=== PATIENT | male | born 1950 | race Caucasian/White ===

== ENCOUNTER 2024-02-21 16:00 | Emergency (ER) | payer MEDICARE, MEDICAID, SELFPAY ==
[2024-02-21 16:02] VITALS: BP 197/85; PULSE 62; RESP 18; TEMP 36; O2SAT 99; BMI 24.3
--- NOTE | 2024-02-21 19:13 | ED.RN ---
called for pt at 1730 and at 191 with no answer.
== END 2024-02-21 17:30 | disposition left against medical advice (07) ==
LOC: ED 19:18
DX: Z53.21 Procedure and treatment not carried out due to patient leaving prior to being seen by health care provider (principal)

== ENCOUNTER 2024-03-14 03:18 | Emergency (ER) | payer MEDICARE, MEDICAID, SELFPAY ==
[2024-03-14 03:22] VITALS: BP 164/101; PULSE 122; RESP 17; TEMP 37.3; O2SAT 98; BMI 25.3
[2024-03-14 03:23] VITALS: BP 164/101; PULSE 122; RESP 17; TEMP 37.3; O2SAT 98
--- NOTE | 2024-03-14 03:37 | RAD_ITS ---
INDICATION: back pain FEVER, BODY ACHES, BACK PAIN EXAMINATION/TECHNIQUE: X-RAY - XR Spine Lumbar 2 or 3 Views COMPARISON: No relevant prior comparison study available FINDINGS: The vertebral bodies are normal in height. No definite fracture demonstrated. No subluxation. Mild curvature convex right. Mild disc space narrowing and osteophytes most pronounced at L4-5 and L5-S1. No paravertebral soft tissue mass identified. RAD/Lumbar Spine 2 or 3 Views IMPRESSION: No evidence of fracture or subluxation. Mild degenerative changes. If there is concern for inflammatory process, MRI may be helpful to evaluate for discitis osteomyelitis. Electronically Signed: Leatha Aguero MD at 5:25 EDT ,
--- NOTE | 2024-03-14 03:37 | RAD_ITS ---
INDICATION: fever EXAMINATION/TECHNIQUE: X-RAY - XR Chest 2 Views COMPARISON: No relevant prior comparison study available FINDINGS: LINES/DEVICES: None. LUNGS: No consolidation. No pneumothorax. MEDIASTINUM: Aorta is tortuous and atherosclerotic. CARDIAC SILHOUETTE: Not enlarged. BONES AND SOFT TISSUES: No acute abnormalities. RAD/Chest PA and Lateral IMPRESSION: No evidence of active intrathoracic disease. Electronically Signed: Leatha Aguero MD at 5:22 EDT ,
--- OUTSIDE RECORDS SUMMARY | 2024-03-14 03:52 | XMS RPT_ITS | CCD ---
Author Organization [facility] Care Team Providers Care Mat Repairer Name Role Phone Fani Saunders L Unavailable Unavailable Unavailable Unavailable SMOOTH EASON Unavailable Unavailable CHRISSIE YU Unavailable Unavailable TRINIDADIANSMOOTH Unavailable Unavailable SAUNDERS, FANI L Unavailable Unavailable SMOOTH EASON Unavailable Unavailable KYLE GOMEZ Unavailable Unavailable TRINIDADIANSMOOTH Unavailable Unavailable SAUNDERS, FANI L Unavailable Unavailable Saunders, Fani L Unavailable Unavailable Primary Care Provider Unavailabl e Saunders, Fani L Primary Care Provider [phone] Saunders, Fani L Primary Care Provider [phone] Saunders, Fani Mari Primary Care Provider Saunders Fani FARNSWORTH Primary Care Provider [phone] SMOOTH EASON Attending Unavailable SAUNDERS, FANI L Primary Care Unavailable SMOOTH EASON Attending Unavailable SMOOTH EASON Referring Unavailable SAUNDERS, FANI L Primary Care Unavailable TRINIDADIANSMOOTH Attending Unavailable SAUNDERS, FANI L Primary Care Unavailable TRINIDADIANSMOOTH Attending Unavailable SMOOTH EASON Referring Unavailable SAUNDERS, FANI L Primary Care Unavailable TRINIDADIANSMOOTH Attending Unavailable SAUNDERS, FANI L Primary Care Unavailable TRINIDADIANSMOOTH Attending Unavailable SMOOTH EASON Referring Unavailable SAUNDERS, FANI L Primary Care Unavailable SRINIVAS HACKETT Attending Unavailable SAUNDERS, FANI L Primary Care Unavailable ROXANNSRINIVAS VARGHESE Attending Unavailable SRINIVAS HACKETT Referring Unavailable SAUNDERS, FANI L Primary Care Unavailable TRINIDADIANSMOOTH Attending Unavailable SAUNDERS, FANI L Primary Care Unavailable TRINIDADIANSMOOTH GREEN Attending Unavailable SAUNDERS, FANI L Primary Care Unavailable SRINIVAS HACKETT Attending Unavailable SAUNDERS, FANI L Primary Care Unavailable SMOOTH EASON Attending Unavailable SAUNDERS, FANI L Primary Care Unavailable Saunders FREIGHT CLERK, Fani L Primary Care Provider Anai ROMERO, Laboure Primary Care Provider Anai ROMERO, Laboure Primary Care Provider Anai ROMERO, Laboure Primary Care Provider OKOROAFOR, LABOURE Referring Unavailable MONK IIIMissy Attending Unavailable OKOROAFOR, LABOURE Primary Care Unavailable OKOROAFOR, LABOURE Referring Unavailable OKOROAFOR, LABOURE Primary Care Unavailable MONK IIIMissy Attending Unavailable OKOROAFOR, LABOURE Referring Unavailable OKOROAFOR, LABOURE Primary Care Unavailable MONK IIIMissy Attending Unavailable OKOROAFOR, LABOURE Referring Unavailable MONK IIIMissy Attending Unavailable OKOROAFOR, LABOURE Primary Care Unavailable MONK IIIMissy Attending Unavailable OKOROAFOR, LABOURE Primary Care Unavailable MONK IIIMissy Referring Unavailable MONK IIIMissy Referring Unavailable MONK IIIMissy Attending Unavailable OKOROAFOR, LABOURE Primary Care Unavailable DRE VILLALOBOS JR. Attending Unavailabl PHIL Farnsworth Referring Unavailabl e OKOROAFOR, LABOURE Primary Care Unavailable OKOROAFOR, LABOURE Primary Care Unavailable OKOROAFOR, LABOURE Referring Unavailable MONK IIIMissy Attending Unavailable OKOROAFOR, LABOURE Primary Care Unavailable SELF, SELF Referring Unavailable MONK IIIMissy Attending Unavailable OKOROAFOR, LABOURE Primary Care Unavailable OKOROAFOR, LABOURE Referring Unavailable MONK IIIMissy Attending Unavailable KAREN PEÑALOZA Attending Unavaila ble FANI SAUNDERS Primary Care Unavailable KYLE RAMESH Attending Unavailabl e SAUNDERS, FANI L Primary Care Unavailable Allergies Allergy Classification Reported Allergen(s) Allergy Type Date of Onset Reaction(s) Facility Sulfamethoxazole / Trimethoprim (4 sources) Sulfamethoxazole / Trimethoprim; Translations: [SULFAMETHOXAZOLE-T RIMETHOPRIM] Drug Allergy 08-09-19 15 Anxiety [facility] (20 sources) sulfamethoxazole / trimethoprim; Translations: [SULFAMETHOXAZOLE-T RIMETHOPRIM] Propensity to adverse reactions to drug 08-09-19 15 Anxiety, Myalgia [facility] Work Phone: Medications Current Medications Medication Drug Class(es) Dates Sig (Normalized) Sig (Original) acetaminophen 325 mg / HYDROcodone bitartrate 5 mg oral tablet (20 sources) Opioid Agonist Start: 05-21-2020 take 1 tablet by mouth every six hours as needed for pain HYDROcodone-acetam inophen (NORCO) 5-325 mg per tablet Indications: Hemorrhoids, unspecified hemorrhoid type Take 1 (one) tablet by mouth every 6 (six) hours as needed for pain . 15 tablet 0 05/21/2020 Active Start: 03-18-2020 End: 03-21-2020 take 1 tablet by mouth every four hours as needed for pain, then take 3 tablets by mouth as needed for pain HYDROcodone-acetaminophen (NORCO) 5-325 mg per tablet Indications: Closed fracture of lateral portion of right tibial plateau, initial encounter Take 1 (one) tablet by mouth every 4 (four) hours as needed for pain 3 . 18 tablet 0 03/18/2020 03/21/2020 Active Start: 03-03-2020 End: 03-04-2020 HYDROcodone-acetaminophen (N ORCO) 5-325 mg per tablet 1 tablet Start: 12-02-2016 End: 05-21-2020 take 1 tablet by mouth every eight hours as needed HYDROcodone-acetaminophen (NORCO) 5-325 mg per tablet Take 1 (one) tablet by mouth every 8 (eight) hours as needed for pain. 50 tablet 0 01/13/2017 Active acetaminophen 325 mg / oxyCODONE hydrochloride 5 mg oral tablet (1 source) Opioid Agonist Start: 03-04-2020 End: 03-14-2020 take 2 tablets by mouth every six hours as needed for pain oxyCODONE-acetaminophen (PERCOCET) 5-325 mg per tablet Indications: Closed fracture of right tibial plateau, initial encounter Take 2 (two) tablets by mouth every 6 (six) hours as needed for pain Do not drive with medication. . 20 tablet 0 03/04/2020 03/14/2020 Active bismuth subsalicylate 17.5 mg/ml oral suspension (11 sources) Bismuth take 30 mL by mouth every six hours as needed bismuth subsalicylate 262 MG/15ML Suspension Take 30 mL by mouth every 6 hours as needed. Active calcium carbonate / ergocalciferol (20 sources) Provitamin D2 Compound take 1 tablet by mouth twice daily calcium carbonate-vitamin D2 500 mg(1,250mg) -200 unit tablet Take 1 tablet by mouth 2 (two) times a day. 0 Active take 1 tablet by mouth twice krysten ly calcium carbonate-vitamin D2 500 mg(1,250mg) -200 unit tablet Take 1 tablet by mouth 2 (two) times a day. Active take 1 tablet by mouth twice krysten ly calcium carbonate-vitamin D2 500 mg(1,250mg) -200 unit tablet Take 1 tablet by mouth 2 (two) times a day. Active cyclobenzaprine hydrochloride 10 mg oral tablet (11 sources) Muscle Relaxant Start: 03-22-2022 End: 03-22-2022 take 1 tablet by mouth three times daily as needed for muscle spasms cyclobenzaprine 10 MG tablet Indications: Acute bilateral low back pain with left-sided sciatica , Mid back pain Take 1 tablet by mouth 3 times daily as needed for Muscle spasms. 30 tablet 03/22/2022 Active docusate sodium 50 mg / sennosides, [facility] 8.6 mg oral tablet (2 sources) Start: 05-21-2020 End: 06-20-2020 take 1 tablet by mouth once daily senna-docusate (SENNA-S) 8.6-50 mg Take 1 (one) tablet by mouth daily . 30 tablet 0 05/21/2020 06/20/2020 Active hydroCHLOROthiazide 12.5 mg oral capsule (20 sources) Thiazide Diuretic take 1 capsule by mouth once daily hydrochlorothiazide 12.5 MG Cap Take 1 capsule by mouth daily. Active hydrocortisone 25 mg/ml topical cream (2 sources) Corticosteroid Start: 05-21-2020 End: 06-20-2020 hydrocortisone (ANUSOL-HC) 2.5 % rectal cream Insert into the rectum 2 (two) times a day . 28 g 0 05/21/2020 06/20/2020 Active ibuprofen 800 mg oral tablet (10 sources) Nonsteroidal Anti-inflammatory Drug Start: 03-18-2020 End: 03-18-2021 take 1 tablet by mouth every eight hours as needed for pain ibuprofen (ADVIL,MOTRIN) 800 MG tablet Indications: Closed fracture of lateral portion of right tibial plateau, initial encounter Take 1 (one) tablet (800 mg total) by mouth every 8 (eight) hours as needed for pain . 60 tablet 2 03/18/2020 03/18/2021 Active lidocaine 0.05 mg/mg topical ointment (5 sources) Antiarrhythmic, Amide Local Anesthetic Start: 07-12-2022 Lidocaine 5 % ointment Indications: Chronic bilateral low back pain without sciatica Ketamine 5%, baclofen 2%, diclofenac 3%, gabapentin 6%, lidocaine 2%, prilocaine 2% Apply 1-2gm topically to affected area three to four times a day as needed 240 g 3 07/12/2022 Active lisinopril 20 mg oral tablet (20 sources) Angiotensin Converting Enzyme Inhibitor take 2 tablets by mouth once daily lisinopril 20 MG Tab Take 2 tablets by mouth daily. Active take 5 mg by mouth once daily li sinopril (PRINIVIL,ZESTRIL) 10 MG tablet Take 5 mg by mouth daily. 0 Active Multiple Vitamin (MULTI-ALPA MIN DAILY PO) (11 sources) Multiple Vitamin (MULTI-VITAMIN DAILY PO) Active Multiple Vitamin (MULTI-VITAMIN DAILY PO) multivitamin (multivitamin) per tablet (20 sources) take 1 tablet by hero th once daily multivitamin (multivitamin) per tablet Take 1 tablet by mouth daily. 0 Active take 1 tablet by mouth once juaquin y multivitamin (multivitamin) per tablet Take 1 tablet by mouth daily. Active Multivitamin Tablet (8 sources) take 1 tablet by mouth once daily multivitamin (multivitamin) per tablet Take 1 tablet by mouth daily. Active naproxen 500 mg oral tablet (11 sources) Nonsteroidal Anti-inflammatory Drug Start: 03-22-20 End: 04-05-20 take 1 tablet by mouth twice daily at mealtime naproxen 500 MG tablet Indications: Acute bilateral low back pain with left-sided sciatica , Mid back pain Take 1 tablet by mouth 2 times daily with meals for 14 days. 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 28 tablet 03/22/2022 Active omeprazole 20 mg delayed release oral capsule (20 sources) Proton Pump Inhibitor Start: 03-22-20 End: 03-22-20 take 1 capsule by mouth once daily omeprazole [address] capsule Indications: Acute bilateral low back pain with left-sided sciatica , Mid back pain Take 1 capsule by mouth daily. 30 capsule 03/22/2022 Active Start: 03-03-2019 End: 04-02-2019 take 1 capsule by mouth once daily omeprazole (PRILOSEC) 40 MG capsule Take 1 (one) capsule (40 mg total) by mouth daily . 30 capsule 0 03/03/2019 Active penicillin v potassium 500 mg oral tablet (2 sources) Start: 09-17-2020 End: 09-24-2020 take 1 tablet by mouth four times daily penicillin v potassium (VEETID) 500 MG tablet Take 1 (one) tablet (500 mg total) by mouth 4 (four) times a day for 7 days . 28 tablet 0 09/17/2020 09/24/2020 Active Start: 09-17-2020 End: 09-17-2020 penicillin v potassium (VEET ID) tablet 500 mg Completed/Discontinued Medications Medication Drug Class(es) Dates Sig (Normalized) Sig (Original) calcium chloride 0.0014 meq/ml / potassium chloride 0.004 meq/ml / sodium chloride 0.103 meq/ml / sodium lactate 0.028 meq/ml injectable solution (1 source) Start: 04-05-2023 End: 04-06-2023 Lactated ringers IV solution simethicone undiluted 40 mg/0.6 mL irrigation 1 Application (1 source) Start: 04-05-2023 End: 04-05-2023 simethicone undiluted 40 mg/0.6 mL irrigation 1 Application zinc oxide 0.4 mg/mg paste (1 source) Start: 09-17-2020 End: 09-17-2020 zinc oxide (DESITIN MAX) 40 % paste Problems Active Problems Problem Classification Problem Date Documented Date Episodic/Chronic Cancer of prostate (20 sources) Malignant tumor of prostate; Translations: [Malignant neoplasm of prostate] Onset: 06-06-2015 Chronic Cataract (20 sources) Bilateral cataracts; Translations: [Unspecified cataract] Onset: 01-24-2016 01-24-2016 Chronic Disorders of teeth and jaw (1 source) Toothache; Translations: [Other specified disorders of teeth and supporting structures] Episodic E Codes: Fall (2 sources) Unspecified fall, initial encounter; Translations: [Unspecified fall, initial encounter] Onset: 10-05-2023 Episodic Essential hypertension (20 sources) Hypertensive disorder; Translations: [Essential (primary) hypertension] Onset: 08-08-2014 01-24-2016 Chronic External cause codes: Fall (1 source) Fall; Translations: [Fall, initial encounter] Hemorrhoids (1 source) Hemorrhoids; Translations: [Hemorrhoids, unspecified hemorrhoid type] Episodic Osteoarthritis (2 sources) Primary gonarthrosis, bilateral; 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] Chronic Other circulatory disease (3 sources) Elevated blood pressure; Translations: [Elevated blood-pressure reading, without diagnosis of hypertension] Episodic Other diseases of bladder and urethra (11 sources) Contracture of bladder neck; 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-neck obstruction] Onset: 11-24-2017 11-24-2017 Chronic Other eye disorders (16 sources) Vitreous floaters; Translations: [Other vitreous opacities, bilateral] Onset: 01-24-2016 01-24-2016 Chronic Other eye disorders (3 sources) Other vitreous opacities, bilateral; Translations: [Bilateral vitreous floaters] Onset: 01-24-2016 01-24-2016 Chronic Other eye disorders (12 sources) Bilateral vitreous floaters; Translations: [Vitreous floaters of both eyes] Onset: 01-24-2016 01-24-2016 Other non-traumatic joint disorders (2 sources) Pain in right wrist; Translations: [Pain in right wrist] Onset: 10-05-2023 Episodic Other non-traumatic joint disorders (1 source) Pain in right knee; Translations: [Right knee pain] Residual codes; unclassified (3 sources) Patient encounter status; Translations: [Encounter for prophylactic measures, unspecified] Onset: 08-08-2014 Resolved: 08-10-2014 08-10-2014 Episodic Spondylosis; intervertebral disc disorders; other back problems (3 sources) Lumbar spondylosis; Translations: [Spondylosis without myelopathy or radiculopathy, lumbar region] Chronic Spondylosis; intervertebral disc disorders; other back problems (7 sources) Acute back pain with sciatica; Translations: [Lumbago with sciatica, left side] Episodic Unclassified (13 sources) Shoulder stiffness, left; Translations: [Shoulder stiffness, left] Onset: 03-28-2017 03-28-2017 Unclassified (17 sources) Decreased range of motion of left shoulder; Translations: [Decreased range of motion of left shoulder] Onset: 12-10-2016 12-10-2016 Unclassified (1 source) Closed fracture of right tibial plateau; Translations: [Closed fracture of right tibial plateau, initial encounter] Unclassified (1 source) Cough, unspecified; Translations: [Cough, unspecified] Onset: 05-11-2023 Past or Other Problems Problem Classification Problem Date Documented Date Episodic/Chronic Blindness and vision defects (20 sources) Disorder of refraction; Translations: [Unspecified disorder of refraction] Onset: 01-24-2016 01-24-2016 Episodic Fluid and electrolyte disorders (20 sources) Lactic acidosis; Translations: [Acidosis] Onset: 08-08-2014 08-08-2014 Episodic Fracture of lower limb (16 sources) Closed fracture proximal tibia, lateral condyle (plateau) ; Translations: [Fracture of tibial plateau] Onset: 03-18-2020 03-18-2020 Episodic Fracture of upper limb (20 sources) Closed fracture of acromial end of clavicle; Translations: [Displaced fracture of lateral end of left clavicle, initial encounter for closed fracture] Onset: 10-21-2016 10-21-2016 Episodic Gastritis and duodenitis (12 sources) Gastritis; Translations: [Gastritis, unspecified, without bleeding] Onset: 03-15-2019 03-15-2019 Episodic Genitourinary symptoms and ill-defined conditions (20 sources) Retention of urine; Translations: [Retention of urine, unspecified] Onset: 08-08-2014 08-10-2014 Episodic Influenza (2 sources) Influenza due to other identified influenza virus with other respiratory manifestations; Translations: [Influenza due to other identified influenza virus with other respiratory manifestations] Onset: 05-11-2023 Episodic Mood disorders (5 sources) Mood disorders Onset: 09-27-2022 Resolved: 08-16-2023 09-27-2022 Other and unspecified benign neoplasm (11 sources) Lipoma (clinical); Translations: [Benign lipomatous neoplasm, unspecified] Onset: 09-08-2015 09-08-2015 Episodic Other fractures (2 sources) Nondisplaced fracture of lateral end of left clavicle, subsequent encounter for fracture with routine healing; Translations: [Nondisplaced fracture of lateral end of left clavicle, subsequent encounter for fracture with routine healing] Onset: 12-10-2016 Episodic Other injuries and conditions due to external causes (1 source) Fracture of bone Episodic Other non-traumatic joint disorders (20 sources) Shoulder stiff; Translations: [Stiffness of left shoulder, not elsewhere classified] Onset: 12-02-2016 12-02-2016 Episodic Other non-traumatic joint disorders (15 sources) Hip pain; Translations: [Pain in left hip] Onset: 04-17-2018 04-17-2018 Episodic Other non-traumatic joint disorders (9 sources) Stiffness of left shoulder, not elsewhere classified; Translations: [Stiffness of left shoulder] Onset: 12-10-2016 03-28-2017 Episodic Other non-traumatic joint disorders (1 source) Knee pain; Translations: [Acute pain of right knee] Episodic Other non-traumatic joint disorders (2 sources) Shoulder joint - range of movement - finding; Translations: [Stiffness of left shoulder, not elsewhere classified] Onset: 12-10-2016 12-10-2016 Episodic Other screening for suspected conditions (not mental disorders or infectious disease) (2 sources) Encounter for screening for malignant neoplasm of colon; Translations: [Encounter for screening for malignant neoplasm of colon] Onset: 04-05-2023 Episodic Other skin disorders (11 sources) Sebaceous cyst of skin; Translations: [Sebaceous cyst] Onset: 09-08-2015 09-08-2015 Episodic Other upper respiratory infections (2 sources) Acute pharyngitis, unspecified; Translations: [Acute pharyngitis, unspecified] Onset: 05-11-2023 Episodic Septicemia (20 sources) Sepsis; Translations: [Sepsis, unspecified organism] Onset: 08-08-2014 08-10-2014 Episodic Unclassified (16 sources) H/O: anticoagulant therapy; Translations: [DVT prophylaxis] Onset: 08-08-2014 Resolved: 08-10-2014 08-10-2014 Episodic Unclassified (13 sources) Patient encounter status; Translations: [DVT prophylaxis] Onset: 08-08-2014 Resolved: 08-10-2014 08-10-2014 Unclassified (1 source) Cough, unspecified; Translations: [Cough, unspecified] Onset: 05-11-2023 Urinary tract infections (11 sources) Irradiation cystitis; 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 [id number] male who presents to the emergency department with complaints of right wrist pain for 2 weeks. Patient fell backwards on his right wrist about 2 weeks ago. He was not evaluated at that time. He is not wearing a wrist splint and taking naproxen and aspirin intermittently for pain. His pain is not worse however it is still present. It is worse with certain movements. When he fell he did not hit his head or lose consciousness. He is not anticoagulated. No numbness, tingling, or weakness to the extremity. Medical Decision Making I saw and evaluated the patient. I have reviewed the chief complaint, triage note, past medical/surgical, family, and social history. 72-year-old male presents as above. Vital signs are unremarkable. On exam he is nontoxic and resting comfortably. 2+ bilateral radial pulses. Good capillary refill to all digits of the right hand. Awake, alert and oriented. Intact sensation to light touch of the bilateral upper extremities. Equal and symmetric handgrip. No pain with wrist flexion or extension. No pain with elbow flexion or extension. GCS 15. No significant tenderness to palpation to the right upper extremity and right wrist. No palpable deformity, swelling, erythema, or crepitus to the right upper extremity. Patient given oral ibuprofen in the ED. X-ray of the right wrist was unremarkable. Patient reassured. He already has a wrist splint. He will follow-up with his primary care doctor and continue RICE therapy and Tylenol or ibuprofen as needed at home. Strict return precautions were discussed and all questions were answered. Discharged in stable condition. Imaging studies interpreted by radiologist and reviewed by myself. Differential diagnosis includes but not limited to: Fracture, sprain 1. Acute pain of right wrist 2. Fall, initial encounter MDM Data MDM Data: X-ray interpretation reviewed and Shared decision making utilized Physical Exam Vital signs reviewed. CONSTITUTIONAL: Overall non toxic and resting comfortably EYES: No conjunctival injection. No icterus. HENT: External ears normal, external nose normal. MMM. NECK: Trachea midline RESPIRATORY: Easy non labored respirations, no respiratory distress CHEST: Equal chest expansion CARDIOVASCULAR: Warm and well-perfused. 2+ bilateral radial pulses. Good capillary refill to all digits of the right hand. NEUROLOGICAL: Awake, alert and oriented. Intact sensation to light touch of the bilateral upper extremities. Equal and symmetric handgrip. No pain with wrist flexion or extension. No pain with elbow flexion or extension. GCS 15. PSYCHOLOGICAL: The patient's mood and manner are appropriate. Grooming and personal hygiene are appropriate. INTEGUMENTARY: Warm and dry. No rash noted. MUSCULOSKELETAL: No significant tenderness to palpation to the right upper extremity and right wrist. No palpable deformity, swelling, erythema, or crepitus to the right upper extremity. Radiographic Imaging (if any) During ED Visit XR Wrist Right 3+ Views (Standard) Final Result Normal wrist radiographs Workstation ID: [id number] SOCIAL: Social History Tobacco Use Smoking status: Never Smokeless tobacco: Never Vaping Use Vaping Use: Never used Substance Use Topics Alcohol use: No Drug use: No Past Medical History Nursing triage notes/past medical, social, and family hx reviewed by me and I agree except where documented above. Past Medical History: Diagnosis Date Hypertension Prostate cancer (HCC) Labs Reviewed - No data to display Laboratory results have been reviewed by me. Procedures . Allergies Allergies Allergen Reactions Bactrim [Sulfamethoxazole-Tri methoprim] Anxiety Medications Previous Medications Medication Sig calcium carbonate-vitamin D2 500 mg(1,250mg) -200 unit tablet Take 1 tablet by mouth 2 (two) times a day. hydrochlorothiazide (MICROZIDE) 12.5 mg capsule Take 12.5 mg by mouth. HYDROcodone-acetamino phen (NORCO) 5-325 mg per tablet Take 1 (one) tablet by mouth every 6 (six) hours as needed for pain . (Patient not taking: Reported on 11/14/2020 .) HYDROcodone-acetamino phen (NORCO) 5-325 mg per tablet Take 1 (one) tablet by mouth every 6 (six) hours as needed . lisinopril (PRINIVIL,ZESTRIL) 10 MG tablet Take 5 mg by mouth daily. multivitamin (multivitamin) per tablet Take 1 tablet by mouth daily. omeprazole (PRILOSEC) 40 MG capsule Take 1 (one) capsule (40 mg total) by mouth daily . ondansetron (ZOFRAN) 4 MG tablet Take 1 (one) tablet (4 mg total) by mouth every 8 (eight) hours as needed . (Computer voice recognition was used in this documentation, there is a possibility of [id number] errors inherent to this technology that may be missed during proofreading.) Jones Ortiz PA-C 10/06/23 1115 AUTHENTICATED BY JONES ORTIZ, (more content not included)... [facility] XR WRIST RIGHT 3+ VIEWS (STA NDARD)on 10-05-2023 XR WRIST RIGHT 3+ VIEWS (STANDARD) EXAMINATION: THREE XRAY VIEWS OF THE RIGHT WRIST 10/05/2023 2:35 pm COMPARISON: None. HISTORY: ORDERING SYSTEM PROVIDED HISTORY: right wrist pain; TECHNOLOGIST PROVIDED HISTORY: Injury/Trauma Acuity: Acute Reason for Exam: Right medial posterior wrist pain x 2 weeks Type of Encounter: Initial Mechanism of Injury: fall FINDINGS: Carpal bones and alignment are maintained. Distal radius and ulna are intact. No acute fracture or dislocation. IMPRESSION: Normal wrist radiographs Workstation ID: [id number] Dictated by: MAIRA PATTERSON on TueOctober 05, 2023 2:48:06 PM EDT Transcribed by: MAIRA PATTERSON on TueOctober 05, 2023 2:48:06 PM EDT Finalized by: MAIRA PATTERSON on TueOctober 05, 2023 2:48:06 PM EDT [facility] Comment on above: Order Comment: Injur y/Trauma or Illness?:Injury/Trauma How long have you had these symptoms (acute/chronic)?:Acute Reason for exam?:Right medial posterior wrist pain x 2 weeks History of cancer?:unknown Surgeries, chemotherapy, or radiation?:unknown Type of Exam?:Initial Mechanism of injury?:fall CBC AND ELECTRONIC DIFFon Abs Baso Auto < Normal 0.00-0.09 [facility] Comment on above: Performed By: #### P SATM #### [facility] (DEFAULT) [address] [address] Basophils/100 WBC (Bld) 0.6 % Normal [facility] Comment on above: Performed By: #### P SATM #### [facility] (DEFAULT) [address] [address] DIFF STATUS Electronic Differential Normal [facility] Comment on above: Performed By: #### P SATM #### [facility] (DEFAULT) [address] [address] Eosinophils (Bld) [#/Vol] 0.06 10*3/uL Normal 0.00-0.48 [facility] Comment on above: Performed By: #### P SATM #### [facility] (DEFAULT) [address] [address] Eosinophils/100 WBC (Bld) 1.3 % Normal [facility] Comment on above: Performed By: #### P SATM #### [facility] (DEFAULT) [address] [address] Hematocrit (Bld) [Volume fraction] 41.7 % Normal 39.6-48.8 [facility] Comment on above: Performed By: #### P SATM #### [facility] (DEFAULT) [address] [address] Hemoglobin (Bld) [Mass/Vol] 14.1 g/dL Normal 13.4-16.8 [facility] Comment on above: Performed By: #### P SATM #### [facility] (DEFAULT) [address] [address] Immature Grans % 0.2 % Normal [facility] Comment on above: Performed By: #### P SATM #### [facility] (DEFAULT) [address] [address] Immature Grans Absolute < Normal <=0.07 [facility] Comment on above: Performed By: #### P SATM #### [facility] (DEFAULT) [address] [address] Lymphocytes (Bld) [#/Vol] 1.44 10*3/uL Normal 0.83-3.57 [facility] Comment on above: Performed By: #### P SATM #### [facility] (DEFAULT) [address] [address] Lymphocytes/100 WBC (Bld) 30.7 % Normal [facility] Comment on above: Performed By: #### P SATM #### [facility] (DEFAULT) [address] [place] [address] MCV (RBC) [Entitic vol] 92.1 fL Normal 79.0-94.5 [facility] Comment on above: Performed By: #### P SATM #### [facility] (DEFAULT) [address] [place] [address] Mean Cell Hgb 31.1 pg Normal 26.1-33.3 [facility] Comment on above: Performed By: #### P SATM #### [facility] (DEFAULT) [address] [place] [address] Mean Cell Hgb Conc 33.8 g/dL Normal 31.9-36.5 [facility] Comment on above: Performed By: #### P SATM #### [facility] (DEFAULT) [address] [place] [address] Monocytes (Bld) [#/Vol] 0.67 10*3/uL Normal 0.24-0.93 [facility] Comment on above: Performed By: #### P SATM #### [facility] (DEFAULT) [address] [place] [address] Monocytes/100 WBC (Bld) 14.3 % Normal [facility] Comment on above: Performed By: #### P SATM #### [facility] (DEFAULT) [address] [place] [address] Nucleated RBC 0.0 /100 WBC Normal <=0.2 [facility] Comment on above: Performed By: #### P SATM #### [facility] (DEFAULT) [address] [place] [address] Platelet mean volume (Bld) [Entitic vol] 9.5 fL Normal 8.7-12.3 [facility] Comment on above: Performed By: #### P SATM #### [facility] (DEFAULT) [address] [place] [address] Platelets (Bld) [#/Vol] 262 10*3/uL Normal 146-337 [facility] Comment on above: Performed By: #### P SATM #### [facility] (DEFAULT) [address] [address] RBC (Bld) [#/Vol] 4.53 10*6/uL Normal 4.38-5.83 [facility] Comment on above: Performed By: #### P SATM #### [facility] (DEFAULT) [address] [address] RBC Distribution 11.7 % Normal 10.9-14.3 [facility] Comment on above: Performed By: #### P SATM #### [facility] (DEFAULT) [address] [address] Segs + Bands Auto 52.9 % Normal [facility] Comment on above: Performed By: #### P SATM #### [facility] (DEFAULT) [address] [address] Segs + Bands,Absolute Auto 2.48 K/uL Normal 1.57-6.19 [facility] Comment on above: Performed By: #### P SATM #### [facility] (DEFAULT) [address] [address] WBC (Bld) [#/Vol] 4.69 10*3/uL Normal 3.73-10.10 [facility] Comment on above: Performed By: #### P SATM #### [facility] (DEFAULT) [address] [address] CMPN WITHOUT GLUCOSEon 08-15 Albumin [Mass/Vol] 4.5 g/dL Normal 3.5-5.0 [facility] Comment on above: Performed By: #### P SATM #### [facility] (DEFAULT) [address] [place] [address] ALP [Catalytic activity/Vol] 84 U/L Normal 32-126 [facility] Comment on above: Performed By: #### P SATM #### [facility] (DEFAULT) [address] [place] [address] ALT [Catalytic activity/Vol] 13 U/L Normal 10-52 [facility] Comment on above: Performed By: #### P SATM #### [facility] (DEFAULT) [address] [place] [address] Anion gap [Moles/Vol] 11 mmol/L Normal 7-17 [facility] Comment on above: Performed By: #### P SATM #### [facility] (DEFAULT) [address] [place] [address] AST [Catalytic activity/Vol] 15 U/L Normal 10-39 [facility] Comment on above: Performed By: #### P SATM #### [facility] (DEFAULT) [address] [address] Bilirubin [Mass/Vol] 0.3 mg/dL Normal <1.5 [facility] Comment on above: Performed By: #### P SATM #### [facility] (DEFAULT) [address] [place] [address] Calcium [Mass/Vol] 9.6 mg/dL Normal 8.6-10.5 [facility] Comment on above: Performed By: #### P SATM #### [facility] (DEFAULT) [address] [place] [address] Chloride [Moles/Vol] 100 mmol/L Normal 98-108 [facility] Comment on above: Performed By: #### P SATM #### [facility] (DEFAULT) [address] [place] [address] CO2 [Moles/Vol] 31 mmol/L Normal 21-31 [facility] Comment on above: Performed By: #### P SATM #### [facility] (DEFAULT) [address] [place] [address] Creatinine [Mass/Vol] 0.77 mg/dL Normal 0.70-1.30 [facility] Comment on above: Performed By: #### P SATM #### [facility] (DEFAULT) [address] [place] [address]51 eGFR, CKD-EPI, Male > Normal >=60 [facility] Comment on above: Result Comment: Repo rted eGFR is based on the CKD-EPI 2020 equation using creatinine, age, and sex. Performed By: #### P SATM #### [facility] (DEFAULT) [address] [place] [address] Potassium [Moles/Vol] 3.6 mmol/L Normal 3.5-5.0 [facility] Comment on above: Performed By: #### P SATM #### [facility] (DEFAULT) [address] [place] [address] Protein [Mass/Vol] 7.9 g/dL Normal 6.4-8.3 [facility] Comment on above: Performed By: #### P SATM #### [facility] (DEFAULT) [address] [place] [address] Sodium [Moles/Vol] 138 mmol/L Normal 135-145 [facility] Comment on above: Performed By: #### P SATM #### [facility] (DEFAULT) [address] [place] [address] Urea nitrogen [Mass/Vol] 29 mg/dL High 7-25 [facility] Comment on above: Performed By: #### P SATM #### [facility] (DEFAULT) [address] [address] Urea nitrogen/Creatinine [Mass ratio] 38 mg/mg Normal [facility] Comment on above: Performed By: #### P SATM #### [facility] (DEFAULT) [address] [place] [address] COVID-19/INFLUENZA A,B MOLEC ULARon 05-11-2023 SARS-CoV-2 (COVID-19) Ab IA Ql SARS-COV-2 (YANELY): Not Detected INFLUENZA A (YANELY): Detected INFLUENZA B (YANELY): Not Detected Normal Not Detected [facility] Comment on above: Order Comment: This test was performed under the FDA's Emergency Use Authorization (EUA). Testing was performed using the Sara Josefina SARS-CoV-2 RT-PCR AND Influenza A/B Nucleic Acid Test on the Josefina Yanely System. This test has not been approved for use in asymptomatic patients and its performance in this patient population has not been evaluated. Negative results do not rule out the presence of SARS-CoV-2, influenza A, and/or influenza B. Fact sheets for the EUA can be found at the following links: For Healthcare Providers: https://www.LoLo.gov/media/155765/download For Patients: https://www.fda.gov/media/716028/download Performed By: #### L [id number] #### [facility] [address], [place] [address] Jairo Rios M.D. [id number] XR CHEST AP/PA AND LATon XR CHEST AP/PA AND LAT EXAMINATION: TWO XRAY VIEWS OF THE CHEST 05/11/2023 6:50 am COMPARISON: 03/24/2017. HISTORY: ORDERING SYSTEM PROVIDED HISTORY: cough,; TECHNOLOGIST PROVIDED HISTORY: Illness/Other Acuity: Acute Reason for Exam: cough Type of Encounter: Initial Additional signs and symptoms: none FINDINGS: The heart size is within normal limits. The pulmonary vasculature is also within normal limits. No acute infiltrates are seen. No pneumothoraces are noted. IMPRESSION: 1. No active pulmonary disease. Workstation ID: [id number] Dictated by: BRIANA VIRAMONTES on TueMay 11, 2023 7:52:59 AM EST Transcribed by: BRIANA VIRAMONTES on TueMay 11, 2023 7:52:59 AM EST Finalized by: BRIANA VIRAMONTES on TueMay 11, 2023 7:52:59 AM EST Normal [facility] Comment on above: Order Comment: Injur y/Trauma or Illness?:Illness/Other How long have you had these symptoms (acute/chronic)?:Acute Reason for exam?:cough History of cancer?:unknown Surgeries, chemotherapy, or radiation?:unknown Type of Exam?:Initial Additional signs and symptoms?:none DIAGNOSTIC COLONOSCOPYon Addendum Number: 1 Addendum Date: 04/05/2023 1:44:54 PM Patient had prostatectomy. The hard surface felt on the rectal exam in the posterior wall of the rectum is likely the tail bone. MD Natalie Rod MD, PHD 04/05/2023 1:46:16 PM This report has been signed electronically. [facility] Patient Name: Shaq Last Procedure Date: 04/05/2023 12:51 PM Date of : 1950 Admit Type: Outpatient Age: 72 Room: Endo 1 Gender: Male Note Status: Addendum Attending MD: Natalie Parikh MD, PHD, [id number] Procedure: Colonoscopy Indications: High risk colon cancer surveillance: Personal history of non-advanced adenoma, Incidental - Chronic diarrhea Providers: Estella Nascimento RN (Nurse), Ledy Jeter (Nurse), Alissa Hurtado, [employer]or (Solid Propellant Processor), Shaq Marcano MD (Anesthesia Staff), Natalie Parikh MD, PHD (Doctor) Referring MD: LEWIS Bose (Referring MD) Medicines: Monitored Anesthesia Care Complications: No immediate complications. Requesting Provider: Procedure: Pre-Anesthesia Assessment: - Prior to the procedure, a History and Physical was performed, and patient medications and allergies were reviewed. The patient's tolerance of previous anesthesia was also reviewed. The risks and benefits of the procedure and the sedation options and risks were discussed with the patient. All questions were answered, and informed consent was obtained. Prior Anticoagulants: The patient has taken no anticoagulant or antiplatelet agents. ASA Grade Assessment: II - A patient with mild systemic disease. After reviewing the risks and benefits, the patient was deemed in satisfactory condition to undergo the procedure. After I obtained informed consent, the scope was passed under direct vision. Throughout the procedure, the patient's blood pressure, pulse, and oxygen saturations were monitored continuously. The Colonoscope ([id number]) was introduced through the anus and advanced to the terminal ileum, with identification of the appendiceal orifice and IC valve. The colonoscopy was performed without difficulty. The patient tolerated the procedure well. The quality of the bowel preparation was evaluated using the BBPS ([place] Bowel Preparation Scale) with scores of: Right Colon = 3, Transverse Colon = 3 and Left Colon = 3 (entire mucosa seen well with no residual staining, small fragments of stool or opaque liquid). The total BBPS score equals 9. The terminal ileum, ileocecal valve, appendiceal orifice, and rectum were photographed. Findings: The digital rectal exam findings include enlarged prostate. The terminal ileum appeared normal. The mucosa vascular pattern in the cecum was locally increased. A 7 mm polyp was found in the ascending colon. The polyp was sessile. The polyp was removed with a cold snare. Resection and retrieval were complete. Multiple medium-mouthed diverticula were found in the sigmoid colon and ascending colon. Internal hemorrhoids were found during retroflexion and during endoscopy. The hemorrhoids were moderate. The mucosa vascular pattern in the distal rectum was locally decreased. The exam was otherwise normal throughout the examined colon. Biopsies for histology were taken with a cold forceps from the right colon and left colon for evaluation of microscopic colitis. Impression: - Enlarged prostate found on digital rectal exam. - The examined portion of the ileum was normal. - Increased mucosa vascular pattern in the cecum. - One 7 mm polyp in the ascending colon, removed with a cold snare. Resected and retrieved. - Diverticulosis in the sigmoid colon and in the ascending colon. - Internal hemorrhoids. - Decreased mucosa vascular pattern in the distal rectum. (more content not included)... LAB, [facility] Radiology Study observation (narrative) [facility] SURG PATH REQUESTon 04-05-20 Case Report Normal [facility] Comment on above: Result Comment: [facility] Pathology Report Case: [id number] Authorizing Provider: Natalie Parikh MD, PhD Collected: 04/05/2023 01:08 PM Ordering Location: Endoscopy Outpatient Care Received: 04/05/2023 02:26 PM [facility]: Gonzalez Palacios MD Specimens: A) - TISSUE, ascending colon polyp-cold snare B) - TISSUE, random colon bx r/o micoscopic colitis Performed By: #### S URGP #### [facility] (DEFAULT) [address] [place] [address] Clinical History Preop Diagnosis: Colon cancer screening. Medical History: Essential hypertension. Prostate cancer. Collarbone fracture. Bladder neck contracture. Lower leg fracture. Radiation cystitis. Lesion of soft tissue. Benign prostatic hyperplasia. Normal [facility] Comment on above: Performed By: #### S URGP #### [facility] (DEFAULT) [address] [place], [place] [address] Gross Description Normal [facility] Comment on above: Result Comment: The specimens are received in two properly labeled containers with the patient's name and accession number. A. The specimen is designated ascending colon - cold snare and consists of one fragment of gold-pink soft tissue which is 0.8 x 0.5 x 0.2 cm. TE 1 B. The specimen is designated random colon bx R/O microscopic colitis and consists of four fragments of gold-pink soft tissue, from 0.3 up to 1.0 cm in greatest dimension. TE 1 Lab Use Only: JobID [id number] Grosser for this case was: Kat Roche For Immediate Release to Patient's [facility] Yes Performed By: #### S URGP #### [facility] (DEFAULT) [address] [place] [address] Microscopic Description A microscopic examination was performed. Normal [facility] Comment on above: Performed By: #### S URGP #### [facility] (DEFAULT) [address] [place] [address] Pathologic Diagnosis Normal [facility] Comment on above: Result Comment: A. C olon, ascending, polyp, cold snare, biopsy: Hyperplastic polyp. B. Random colon, biopsy: Colonic mucosa with no specific pathologic change. Performed By: #### S URGP #### [facility] (DEFAULT) [address] [place] [address] CBC AND ELECTRONIC DIFFon Abs Baso Auto < Normal 0.00-0.09 [facility] Comment on above: Performed By: #### L [id number] #### [facility] (DEFAULT) [address] [place] [address]397 Basophils/100 WBC (Bld) 0.5 % Normal [facility] Comment on above: Performed By: #### L [id number] #### [facility] (DEFAULT) [address] [place] [address] DIFF STATUS Electronic Differential Normal [facility] Comment on above: Performed By: #### L [id number] #### [facility] (DEFAULT) [address] [place] [address] Eosinophils (Bld) [#/Vol] 0.06 10*3/uL Normal 0.00-0.48 [facility] Comment on above: Performed By: #### L [id number] #### [facility] (DEFAULT) [address] [place] [address] Eosinophils/100 WBC (Bld) 1.4 % Normal [facility] Comment on above: Performed By: #### L [id number] #### [facility] (DEFAULT) [address] [place] [address] Hematocrit (Bld) [Volume fraction] 37.9 % Low 39.6-48.8 [facility] Comment on above: Performed By: #### L [id number] #### [facility] (DEFAULT) [address] [place] [address] Hemoglobin (Bld) [Mass/Vol] 13.4 g/dL Normal 13.4-16.8 [facility] Comment on above: Performed By: #### L [id number] #### [facility] (DEFAULT) [address] [place] [address] Immature Grans % 0.0 % Normal [facility] Comment on above: Performed By: #### L [id number] #### [facility] (DEFAULT) [address] [place] [address] Immature Grans Absolute < Normal <=0.07 [facility] Comment on above: Performed By: #### L [id number] #### [facility] (DEFAULT) [address] [place] [address] Lymphocytes (Bld) [#/Vol] 1.54 10*3/uL Normal 0.83-3.57 [facility] Comment on above: Performed By: #### L [id number] #### [facility] (DEFAULT) [address] [place] [address]76 Lymphocytes/100 WBC (Bld) 35.9 % Normal [facility] Comment on above: Performed By: #### L [id number] #### [facility] (DEFAULT) [address] [place] [address] MCV (RBC) [Entitic vol] 90.9 fL Normal 79.0-94.5 [facility] Comment on above: Performed By: #### L [id number] #### [facility] (DEFAULT) [address] [address] Mean Cell Hgb 32.1 pg Normal 26.1-33.3 [facility] Comment on above: Performed By: #### L [id number] #### [facility] (DEFAULT) [address] [address] Mean Cell Hgb Conc 35.4 g/dL Normal 31.9-36.5 [facility] Comment on above: Performed By: #### L [id number] #### [facility] (DEFAULT) [address] [place] [address] Monocytes (Bld) [#/Vol] 0.68 10*3/uL Normal 0.24-0.93 [facility] Comment on above: Performed By: #### L [id number] #### [facility] (DEFAULT) [address] [address] Monocytes/100 WBC (Bld) 15.9 % Normal [facility] Comment on above: Performed By: #### L [id number] #### [facility] (DEFAULT) [address] [address] Nucleated RBC 0.0 /100 WBC Normal <=0.2 [facility] Comment on above: Performed By: #### L [id number] #### [facility] (DEFAULT) [address] [address] Platelet mean volume (Bld) [Entitic vol] 9.4 fL Normal 8.7-12.3 [facility] Comment on above: Performed By: #### L [id number] #### [facility] (DEFAULT) [address] [address] Platelets (Bld) [#/Vol] 234 10*3/uL Normal 146-337 [facility] Comment on above: Performed By: #### L [id number] #### [facility] (DEFAULT) [address] [address] RBC (Bld) [#/Vol] 4.17 10*6/uL Low 4.38-5.83 [facility] Comment on above: Performed By: #### L [id number] #### [facility] (DEFAULT) [address] [address] RBC Distribution 11.8 % Normal 10.9-14.3 [facility] Comment on above: Performed By: #### L [id number] #### [facility] (DEFAULT) [address] [address] Segs + Bands Auto 46.3 % Normal [facility] Comment on above: Performed By: #### L [id number] #### [facility] (DEFAULT) [address] [address] Segs + Bands,Absolute Auto 1.99 K/uL Normal 1.57-6.19 [facility] Comment on above: Performed By: #### L [id number] #### [facility] (DEFAULT) [address] [address] WBC (Bld) [#/Vol] 4.29 10*3/uL Normal 3.73-10.10 [facility] Comment on above: Performed By: #### L [id number] #### [facility] (DEFAULT) [address] [place] [address] CMPN WITHOUT GLUCOSEon 01-17 Albumin [Mass/Vol] 4.4 g/dL Normal 3.5-5.0 [facility] Comment on above: Performed By: #### C MPNG #### [facility] (DEFAULT) [address] [place] [address] ALP [Catalytic activity/Vol] 74 U/L Normal 32-126 [facility] Comment on above: Performed By: #### C MPNG #### [facility] (DEFAULT) [address] [place] [address]52 ALT [Catalytic activity/Vol] 13 U/L Normal 10-52 [facility] Comment on above: Performed By: #### C MPNG #### [facility] (DEFAULT) [address] [place] [address]706 Anion gap [Moles/Vol] 10 mmol/L Normal 7-17 [facility] Comment on above: Performed By: #### C MPNG #### [facility] (DEFAULT) [address] [place] [address] 24492 AST [Catalytic activity/Vol] 17 U/L Normal 10-39 [facility] Comment on above: Performed By: #### C MPNG #### [facility] (DEFAULT) [address] [place] [address]05 Bilirubin [Mass/Vol] 0.3 mg/dL Normal <1.5 [facility] Comment on above: Performed By: #### C MPNG #### [facility] (DEFAULT) [address] [place] [address] Calcium [Mass/Vol] 9.6 mg/dL Normal 8.6-10.5 [facility] Comment on above: Performed By: #### C MPNG #### [facility] (DEFAULT) [address] [place] [address] 47947 Chloride [Moles/Vol] 102 mmol/L Normal 98-108 [facility] Comment on above: Performed By: #### C MPNG #### [facility] (DEFAULT) [address] [place] [address] 6[address]77 CO2 [Moles/Vol] 30 mmol/L Normal 21-31 [facility] Comment on above: Performed By: #### C MPNG #### [facility] (DEFAULT) [address] [place] [address] 15562 Creatinine [Mass/Vol] 0.72 mg/dL Normal 0.70-1.30 [facility] Comment on above: Performed By: #### C MPNG #### [facility] (DEFAULT) [address] [place] [address]59 eGFR, CKD-EPI, Male > Normal >=60 [facility] Comment on above: Result Comment: Repo rted eGFR is based on the CKD-EPI 2020 equation using creatinine, age, and sex. Performed By: #### C MPNG #### [facility] (DEFAULT) [address] [place] [address]10 Potassium [Moles/Vol] 4.0 mmol/L Normal 3.5-5.0 [facility] Comment on above: Performed By: #### C MPNG #### [facility] (DEFAULT) [address] [place] [address] 26224 Protein [Mass/Vol] 7.6 g/dL Normal 6.4-8.3 [facility] Comment on above: Performed By: #### C MPNG #### [facility] (DEFAULT) [address] [place] [address] 88849 Sodium [Moles/Vol] 138 mmol/L Normal 135-145 [facility] Comment on above: Performed By: #### C MPNG #### [facility] (DEFAULT) [address] [place] [address] 63021 Urea nitrogen [Mass/Vol] 18 mg/dL Normal 7-25 [facility] Comment on above: Performed By: #### C MPNG #### [facility] (DEFAULT) [address] [place] [address] Urea nitrogen/Creatinine [Mass ratio] 25 mg/mg Normal [facility] Comment on above: Performed By: #### C MPNG #### [facility] (DEFAULT) [address] [place] [address] CBC AND ELECTRONIC DIFFon Abs Baso Auto < Normal 0.00-0.09 [facility] Comment on above: Performed By: #### L [id number] #### [facility] (DEFAULT) [address] [place] [address] 9[address]57 Basophils/100 WBC (Bld) 0.4 % Normal [facility] Comment on above: Performed By: #### L [id number] #### [facility] (DEFAULT) [address] [place] [address]65 DIFF STATUS Electronic Differential Normal [facility] Comment on above: Performed By: #### L [id number] #### [facility] (DEFAULT) [address] [place] [address]01 Eosinophils (Bld) [#/Vol] 0.12 10*3/uL Normal 0.00-0.48 [facility] Comment on above: Performed By: #### L AB980 #### [facility] (DEFAULT) [address] [place] [address]790 Eosinophils/100 WBC (Bld) 2.7 % Normal [facility] Comment on above: Performed By: #### L [id number] #### [facility] (DEFAULT) [address] [place] [address]56 Hematocrit (Bld) [Volume fraction] 36.8 % Low 39.6-48.8 [facility] Comment on above: Performed By: #### L [id number] #### [facility] (DEFAULT) [address] [place] [address] 75486 Hemoglobin (Bld) [Mass/Vol] 12.5 g/dL Low 13.4-16.8 [facility] Comment on above: Performed By: #### L [id number] #### [facility] (DEFAULT) [address] [address] Immature Grans % 0.2 % Normal [facility] Comment on above: Performed By: #### L [id number] #### [facility] (DEFAULT) [address] [place] [address] 98265 Immature Grans Absolute < Normal <=0.07 [facility] Comment on above: Performed By: #### L [id number] #### [facility] (DEFAULT) [address] [place] [address] 98864 Lymphocytes (Bld) [#/Vol] 1.50 10*3/uL Normal 0.83-3.57 [facility] Comment on above: Performed By: #### L [id number] #### [facility] (DEFAULT) [address] [address] Lymphocytes/100 WBC (Bld) 33.5 % Normal [facility] Comment on above: Performed By: #### L [id number] #### [facility] (DEFAULT) [address] [address] MCV (RBC) [Entitic vol] 95.3 fL High 79.0-94.5 [facility] Comment on above: Performed By: #### L [id number] #### [facility] (DEFAULT) [address] [address] Mean Cell Hgb 32.4 pg Normal 26.1-33.3 [facility] Comment on above: Performed By: #### L [id number] #### [facility] (DEFAULT) [address] [address] Mean Cell Hgb Conc 34.0 g/dL Normal 31.9-36.5 [facility] Comment on above: Performed By: #### L [id number] #### [facility] (DEFAULT) [address] [place] [address] 75062 Monocytes (Bld) [#/Vol] 0.56 10*3/uL Normal 0.24-0.93 [facility] Comment on above: Performed By: #### L [id number] #### [facility] (DEFAULT) [address] [address] Monocytes/100 WBC (Bld) 12.5 % Normal [facility] Comment on above: Performed By: #### L [id number] #### [facility] (DEFAULT) [address] [address] Nucleated RBC 0.0 /100 WBC Normal <=0.2 [facility] Comment on above: Performed By: #### L [id number] #### [facility] (DEFAULT) [address] [address] Platelet mean volume (Bld) [Entitic vol] 9.3 fL Normal 8.7-12.3 [facility] Comment on above: Performed By: #### L [id number] #### [facility] (DEFAULT) [address] [address] Platelets (Bld) [#/Vol] 237 10*3/uL Normal 146-337 [facility] Comment on above: Performed By: #### L [id number] #### [facility] (DEFAULT) [address] [address] RBC (Bld) [#/Vol] 3.86 10*6/uL Low 4.38-5.83 [facility] Comment on above: Performed By: #### L [id number] #### [facility] (DEFAULT) [address] [address] RBC Distribution 12.0 % Normal 10.9-14.3 [facility] Comment on above: Performed By: #### L [id number] #### [facility] (DEFAULT) [address] [address] Segs + Bands Auto 50.7 % Normal [facility] Comment on above: Performed By: #### L [id number] #### [facility] (DEFAULT) [address] [place] [address] 34552 Segs + Bands,Absolute Auto 2.27 K/uL Normal 1.57-6.19 [facility] Comment on above: Performed By: #### L [id number] #### [facility] (DEFAULT) [address] [place] [address]3352 WBC (Bld) [#/Vol] 4.48 10*3/uL Normal 3.73-10.10 [facility] Comment on above: Performed By: #### L [id number] #### [facility] (DEFAULT) [address] [place] [address]17 CMPN WITHOUT GLUCOSEon 11-09 -2022 Albumin [Mass/Vol] 4.0 g/dL Normal 3.5-5.0 [facility] Comment on above: Performed By: #### P SATM #### [facility] (DEFAULT) [address] [place] [address] 67463 ALP [Catalytic activity/Vol] 76 U/L Normal 32-126 [facility] Comment on above: Performed By: #### P SATM #### [facility] (DEFAULT) [address] [place] [address] 51377 ALT [Catalytic activity/Vol] 16 U/L Normal 10-52 [facility] Comment on above: Performed By: #### P SATM #### [facility] (DEFAULT) [address] [place] [address] 65082 Anion gap [Moles/Vol] 6 mmol/L Low 7-17 [facility] Comment on above: Performed By: #### P SATM #### [facility] (DEFAULT) [address] [place] [address] 46407 AST [Catalytic activity/Vol] 14 U/L Normal 10-39 [facility] Comment on above: Performed By: #### P SATM #### [facility] (DEFAULT) [address] [place] [address] 68525 Bilirubin [Mass/Vol] 0.2 mg/dL Normal <1.5 [facility] Comment on above: Performed By: #### P SATM #### [facility] (DEFAULT) [address] [place] [address] 79537 Calcium [Mass/Vol] 9.0 mg/dL Normal 8.6-10.5 [facility] Comment on above: Performed By: #### P SATM #### [facility] (DEFAULT) [address] [place] [address] 58053 Chloride [Moles/Vol] 105 mmol/L Normal 98-108 [facility] Comment on above: Performed By: #### P SATM #### [facility] (DEFAULT) [address] [place] [address] 62913 CO2 [Moles/Vol] 30 mmol/L Normal 21-31 [facility] Comment on above: Performed By: #### P SATM #### [facility] (DEFAULT) [address] [place] [address] 88109 Creatinine [Mass/Vol] 0.64 mg/dL Low 0.70-1.30 [facility] Comment on above: Performed By: #### P SATM #### [facility] (DEFAULT) [address] [place] [address] 19398 eGFR, CKD-EPI, Male > Normal >=60 [facility] Comment on above: Result Comment: Repo rted eGFR is based on the CKD-EPI 1 equation using creatinine, age, and sex. Performed By: #### P SATM #### [facility] (DEFAULT) [address] [place] [address] 78380 Potassium [Moles/Vol] 4.0 mmol/L Normal 3.5-5.0 [facility] Comment on above: Performed By: #### P SATM #### [facility] (DEFAULT) [address] [place] [address] 63186 Protein [Mass/Vol] 6.8 g/dL Normal 6.4-8.3 [facility] Comment on above: Performed By: #### P SATM #### [facility] (DEFAULT) [address] [place] [address] 21443 Sodium [Moles/Vol] 137 mmol/L Normal 135-145 [facility] Comment on above: Performed By: #### P SATM #### [facility] [place] (DEFAULT) [address] [place] [address] 35852 Urea nitrogen [Mass/Vol] 23 mg/dL Normal 7-25 [facility] Comment on above: Performed By: #### P SATM #### [facility] (DEFAULT) [address] [place] [address] 38147 Urea nitrogen/Creatinine [Mass ratio] 36 mg/mg Normal [facility] Comment on above: Performed By: #### P SATM #### [facility] (DEFAULT) [address] [place] [address] 56257 CBC AND ELECTRONIC DIFFon Abs Baso Auto < Normal 0.00-0.09 [facility] Comment on above: Performed By: #### L [id number] #### [facility] (DEFAULT) [address] [address] Basophils/100 WBC (Bld) 0.3 % Normal [facility] Comment on above: Performed By: #### L [id number] #### [facility] (DEFAULT) [address] [address] DIFF STATUS Electronic Differential Normal [facility] Comment on above: Performed By: #### L [id number] #### [facility] (DEFAULT) [address] [place] [address] 25533 Eosinophils (Bld) [#/Vol] 0.08 10*3/uL Normal 0.00-0.48 [facility] Comment on above: Performed By: #### L [id number] #### [facility] (DEFAULT) [address] [place] [address] 91553 Eosinophils/100 WBC (Bld) 1.3 % Normal [facility] Comment on above: Performed By: #### L [id number] #### [facility] (DEFAULT) [address] [place] [address] 05844 Hematocrit (Bld) [Volume fraction] 38.8 % Low 39.6-48.8 [facility] Comment on above: Performed By: #### L [id number] #### [facility] (DEFAULT) [address] [place] [address] 38452 Hemoglobin (Bld) [Mass/Vol] 13.2 g/dL Low 13.4-16.8 [facility] Comment on above: Performed By: #### L [id number] #### [facility] (DEFAULT) [address] [address] Immature Grans % 0.2 % Normal [facility] Comment on above: Performed By: #### L [id number] #### [facility] (DEFAULT) [address] [address] Immature Grans Absolute < Normal <=0.07 [facility] Comment on above: Performed By: #### L [id number] #### [facility] (DEFAULT) [address] [place] [address] 37809 Lymphocytes (Bld) [#/Vol] 1.30 10*3/uL Normal 0.83-3.57 [facility] Comment on above: Performed By: #### L [id number] #### [facility] (DEFAULT) [address] [address] Lymphocytes/100 WBC (Bld) 20.5 % Normal [facility] Comment on above: Performed By: #### L [id number] #### [facility] (DEFAULT) [address] [address] MCV (RBC) [Entitic vol] 93.7 fL Normal 79.0-94.5 [facility] Comment on above: Performed By: #### L [id number] #### [facility] (DEFAULT) [address] [place] [address] 79428 Mean Cell Hgb 31.9 pg Normal 26.1-33.3 [facility] Comment on above: Performed By: #### L [id number] #### [facility] (DEFAULT) [address] [address] Mean Cell Hgb Conc 34.0 g/dL Normal 31.9-36.5 [facility] Comment on above: Performed By: #### L [id number] #### [facility] (DEFAULT) [address] [address] Monocytes (Bld) [#/Vol] 0.73 10*3/uL Normal 0.24-0.93 [facility] Comment on above: Performed By: #### L [id number] #### [facility] (DEFAULT) [address] [address] Monocytes/100 WBC (Bld) 11.5 % Normal [facility] Comment on above: Performed By: #### L [id number] #### [facility] (DEFAULT) [address] [address] Nucleated RBC 0.0 /100 WBC Normal <=0.2 [facility] Comment on above: Performed By: #### L [id number] #### [facility] (DEFAULT) [address] [address] Platelet mean volume (Bld) [Entitic vol] 9.5 fL Normal 8.7-12.3 [facility] Comment on above: Performed By: #### L [id number] #### [facility] (DEFAULT) [address] [address] Platelets (Bld) [#/Vol] 261 10*3/uL Normal 146-337 [facility] Comment on above: Performed By: #### L [id number] #### [facility] (DEFAULT) [address] [address] RBC (Bld) [#/Vol] 4.14 10*6/uL Low 4.38-5.83 [facility] Comment on above: Performed By: #### L [id number] #### [facility] (DEFAULT) [address] [place] [address] 87324 RBC Distribution 11.3 % Normal 10.9-14.3 [facility] Comment on above: Performed By: #### L [id number] #### [facility] (DEFAULT) [address] [place] [address] 65926 Segs + Bands Auto 66.2 % Normal [facility] Comment on above: Performed By: #### L [id number] #### [facility] (DEFAULT) [address] [place] [address] 66841 Segs + Bands,Absolute Auto 4.21 K/uL Normal 1.57-6.19 [facility] Comment on above: Performed By: #### L [id number] #### [facility] (DEFAULT) [address] [place] [address] 87876 WBC (Bld) [#/Vol] 6.35 10*3/uL Normal 3.73-10.10 [facility] Comment on above: Performed By: #### L [id number] #### [facility] (DEFAULT) [address] [place] [address] 10072 CMPN WITHOUT GLUCOSEon 09-27 Albumin [Mass/Vol] 4.6 g/dL Normal 3.5-5.0 [facility] Comment on above: Performed By: #### P SATM #### [facility] (DEFAULT) [address] [place] [address] 84224 ALP [Catalytic activity/Vol] 90 U/L Normal 32-126 [facility] Comment on above: Performed By: #### P SATM #### [facility] (DEFAULT) [address] [place] [address] 04520 ALT [Catalytic activity/Vol] 14 U/L Normal 10-52 [facility] Comment on above: Performed By: #### P SATM #### [facility] (DEFAULT) [address] [place] [address] 69893 Anion gap [Moles/Vol] 8 mmol/L Normal 7-17 [facility] Comment on above: Performed By: #### P SATM #### [facility] (DEFAULT) [address] [place] [address] 15276 AST [Catalytic activity/Vol] 16 U/L Normal 10-39 [facility] Comment on above: Performed By: #### P SATM #### [facility] (DEFAULT) [address] [place] [address] 38720 Bilirubin [Mass/Vol] 0.3 mg/dL Normal <1.5 [facility] Comment on above: Performed By: #### P SATM #### [facility] (DEFAULT) [address] [place] [address] 14851 Calcium [Mass/Vol] 9.4 mg/dL Normal 8.6-10.5 [facility] Comment on above: Performed By: #### P SATM #### [facility] (DEFAULT) [address] [place] [address] 14306 Chloride [Moles/Vol] 102 mmol/L Normal 98-108 [facility] Comment on above: Performed By: #### P SATM #### [facility] (DEFAULT) [address] [place] [address] 90899 CO2 [Moles/Vol] 32 mmol/L High 21-31 [facility] Comment on above: Performed By: #### P SATM #### [facility] (DEFAULT) [address] [place] [address] 13586 Creatinine [Mass/Vol] 0.72 mg/dL Normal 0.70-1.30 [facility] Comment on above: Performed By: #### P SATM #### [facility] (DEFAULT) [address] [address] eGFR, CKD-EPI, Male > Normal >=60 [facility] Comment on above: Result Comment: Repo rted eGFR is based on the CKD-EPI 2020 equation using creatinine, age, and sex. Performed By: #### P SATM #### [facility] (DEFAULT) [address] [place] [address] 45496 Potassium [Moles/Vol] 4.0 mmol/L Normal 3.5-5.0 [facility] Comment on above: Performed By: #### P SATM #### [facility] (DEFAULT) [address] [place] [address] 42531 Protein [Mass/Vol] 7.7 g/dL Normal 6.4-8.3 [facility] Comment on above: Performed By: #### P SATM #### [facility] (DEFAULT) [address] [place] [address] 36091 Sodium [Moles/Vol] 138 mmol/L Normal 135-145 [facility] Comment on above: Performed By: #### P SATM #### [facility] (DEFAULT) [address] [place] [address] 07591 Urea nitrogen [Mass/Vol] 23 mg/dL Normal 7-25 [facility] Comment on above: Performed By: #### P SATM #### [facility] (DEFAULT) [address] [place] [address] 86545 Urea nitrogen/Creatinine [Mass ratio] 32 mg/mg Normal [facility] Comment on above: Performed By: #### P SATM #### [facility] (DEFAULT) [address] [place] [address] 8[address]30 TESTOSTERONEon 09-27-2022 Testosterone [Mass/Vol] 402 ng/dL Normal 87-814 [facility] Comment on above: Performed By: #### T ESTOS #### [facility] (DEFAULT) [address] [place] [address] 10577 CHEM 6 (LYTES, BUN CREA)on Anion gap [Moles/Vol] 10 mmol/L 7 - 17 mmol/L [facility] Chloride [Moles/Vol] 103 mmol/L 98 - 108 mmol/L [facility] CO2 [Moles/Vol] 28 mmol/L 21 - 31 mmol/L [facility] Creatinine [Mass/Vol] 0.91 mg/dL 0.70 - 1.30 mg/dL [facility] GFR/1.73 sq M.predicted CKD-EPI (S/P/Bld) [Vol rate/Area] - [facility] Comment on above: Reported eGFR is bas ed on the CKD-EPI 2020 equation using creatinine, age, and sex. Interpretation and review of laboratory results Abnormal [facility] Potassium [Moles/Vol] 4.4 mmol/L 3.5 - 5.0 mmol/L [facility] Sodium [Moles/Vol] 137 mmol/L 135 - 145 mmol/L [facility] Urea nitrogen [Mass/Vol] 33 mg/dL High 7 - 25 mg/dL [facility] Urea nitrogen/Creatinine [Mass ratio] 36 mg/mg [facility] HEPATIC FUNCTION PANELon Albumin [Mass/Vol] 4.6 g/dL 3.5 - 5.0 g/dL [facility] ALP [Catalytic activity/Vol] 76 U/L 32 - 126 U/L [facility] ALT [Catalytic activity/Vol] 18 U/L 10 - 52 U/L [facility] AST [Catalytic activity/Vol] 18 U/L 10 - 39 U/L [facility] Bilirubin [Mass/Vol] 0.3 mg/[facility] Bilirubin.direct [Mass/Vol] 0.1 mg/dL NINF - 0.3 mg/dL [facility] Interpretation and review of laboratory results Normal [facility] Protein [Mass/Vol] 7.6 g/dL 6.4 - 8.3 g/dL [facility] No Panel Informationon 03-22 [facility] XR Spine lumbosacral junctio n Viewson 03-22-2022 IMPRESSION: Osteopenia Slight dextroscoliosis Multilevel disc disease, osteophyte formation and facet disease OLOGY EXAM: XR SPINE LUMBOSACRAL AP AND LATERAL VIEWS, 03/22/2022 17:28 PM COMPARISON: CT of the abdomen and pelvis October 27, 2017 CLINICAL INDICATIONS: Acute back pain RELEVANT CLINICAL HISTORY: M54.42:Acute bilateral low back pain with left-sided sciatica M54.9:Mid back pain FINDINGS: 2 images obtained. There are 5 lumbar vertebral bodies identified. Bony mineralization is diminished. No compression deformities. There is multilevel disc disease, osteophyte formation and facet disease.. There is minimal retrolisthesis of L2 on L3 and L3 on L4. No spondylolysis. On the frontal film there is a minimal dextroscoliotic curve. RADIOLOGY Delmy Langston D O - 03/22/2022 EXAM: XR SPINE LUMBOSACRAL AP AND LATERAL VIEWS, 03/22/2022 17:28 PM COMPARISON: CT of the abdomen and pelvis October 27, 2017 CLINICAL INDICATIONS: Acute back pain RELEVANT CLINICAL HISTORY: M54.42:Acute bilateral low back pain with left-sided sciatica M54.9:Mid back pain FINDINGS: 2 images obtained. There are 5 lumbar vertebral bodies identified. Bony mineralization is diminished. No compression deformities. There is multilevel disc disease, osteophyte formation and facet disease.. There is minimal retrolisthesis of L2 on L3 and L3 on L4. No spondylolysis. On the frontal film there is a minimal dextroscoliotic curve. IMPRESSION IMPRESSION: Osteopenia Slight dextroscoliosis Multilevel disc disease, osteophyte formation and facet disease [facility] Radiology Study observation (narrative) [facility] XR Spine lumbosacral junctio n ViewsOrdered By: Delmy Langston on 03-22-2022 [facility] Work Phone: XR Thoracic spine 2 Viewson 03-22-2022 IMPRESSION: Osteopenia Levoscoliotic curve centered at T5-6 Multilevel disc disease and osteophyte formation. No acute fracture. If clinically warranted consideration could be given to MRI or CT OLOGY EXAM: XR SPINE THORACIC 2 VIEWS VIEWS, 03/22/2022 17:27 PM COMPARISON: PA and lateral chest July 08, 2015 CLINICAL INDICATIONS: Acute back pain RELEVANT CLINICAL HISTORY: M54.42:Acute bilateral low back pain with left-sided sciatica M54.9:Mid back pain FINDINGS: 2 images obtained. There are 12 rib-bearing thoracic vertebral bodies. Bony mineralization is diminished. There is a levoscoliotic curve centered at T5-6. No compression deformities. There is multilevel disc disease and osteophyte formation. There is straightening of the normal kyphosis. RADIOLOGY Delmy Langston D O - 03/22/2022 EXAM: XR SPINE THORACIC 2 VIEWS VIEWS, 03/22/2022 17:27 PM COMPARISON: PA and lateral chest July 08, 2015 CLINICAL INDICATIONS: Acute back pain RELEVANT CLINICAL HISTORY: M54.42:Acute bilateral low back pain with left-sided sciatica M54.9:Mid back pain FINDINGS: 2 images obtained. There are 12 rib-bearing thoracic vertebral bodies. Bony mineralization is diminished. There is a levoscoliotic curve centered at T5-6. No compression deformities. There is multilevel disc disease and osteophyte formation. There is straightening of the normal kyphosis. IMPRESSION IMPRESSION: Osteopenia Levoscoliotic curve centered at T5-6 Multilevel disc disease and osteophyte formation. No acute fracture. If clinically warranted consideration could be given to MRI or CT [facility] Radiology Study observation (narrative) [facility] XR Thoracic spine 2 ViewsOrd ered By: Delmy Langston on 03-22-2022 [facility] Work Phone: PSA - DIAGNOSTIC/TUMOR MARKE ROrdered By: Rosa Goff on 12-30-2020 Interpretation and review of laboratory results Normal [facility] Prostate specific Ag [Mass/Vol] ng/mL <=4.00 ng/mL [facility] TESTOSTERONEon 12-30-2020 Interpretation and review of laboratory results Normal [facility] Testosterone [Mass/Vol] 443 ng/dL 87 - 814 ng/dL [facility] XR KNEE RIGHT 2 VIEWS (STAND DENNIS)on 05-21-2020 XR KNEE RIGHT 2 VIEWS (STANDARD) AP and lateral radiographs of the right knee have been obtained today in the office at my request. I have personally reviewed them. There is a healed nondisplaced fracture of the lateral plateau of the knee. There are minimal arthritic changes of the knee. I do not see any other obvious fractures or dislocations. Dictated by: SMOOTH EASON on TueMay 21, 2020 2:46:10 PM EST Transcribed by: SMOOTH EASON on TueMay 21, 2020 2:46:10 PM EST Finalized by: SMOOTH EASON on TueMay 21, 2020 2:46:10 PM EST Normal [facility] Comment on above: Order Comment: Injur y/Trauma or Illness?:Injury/Trauma How long have you had these symptoms (acute/chronic)?:Chronic Reason for exam?:f/u History of cancer?:unknown Surgeries, chemotherapy, or radiation?:unknown Type of Exam?:Subsequent/Follow-up Mechanism of injury?:accident XR Knee Right 2 Views (Stand dennis)on 05-21-2020 AP and lateral radiographs of the right knee have been obtained today in the office at my request. I have personally reviewed them. There is a healed nondisplaced fracture of the lateral plateau of the knee. There are minimal arthritic changes of the knee. I do not see any other obvious fractures or dislocations. [facility] XR KNEE RIGHT 2 VIEWS (STAND DENNIS)on 04-24-2020 XR KNEE RIGHT 2 VIEWS (STANDARD) AP and lateral radiographs of the right knee have been obtained today in the office at my request. I have personally reviewed them. There is a minimally impacted fracture of the right knee lateral tibial plateau. There is no appreciable change in alignment in comparison to the patient's prior radiographs although the AP radiograph is taken with the knee somewhat flexed and is not of great quality. I do not see any obvious fractures or dislocations. The knee joint is well reduced. Dictated by: SMOOTH EASON on TueApr 24, 2020 1:32:29 PM EST Transcribed by: SMOOTH EASON on TueApr 24, 2020 1:32:29 PM EST Finalized by: SMOOTH EASON on TueApr 24, 2020 1:32:29 PM EST Normal [facility] Comment on above: Order Comment: Injur y/Trauma or Illness?:Injury/Trauma How long have you had these symptoms (acute/chronic)?:Chronic Reason for exam?:f/u History of cancer?:unknown Surgeries, chemotherapy, or radiation?:unknown Type of Exam?:Subsequent/Follow-up Mechanism of injury?:accident XR Knee Right 2 Views (Stand dennis)on 04-24-2020 AP and lateral radiographs of the right knee have been obtained today in the office at my request. I have personally reviewed them. There is a minimally impacted fracture of the right knee lateral tibial plateau. There is no appreciable change in alignment in comparison to the patient's prior radiographs although the AP radiograph is taken with the knee somewhat flexed and is not of great quality. I do not see any obvious fractures or dislocations. The knee joint is well reduced. [facility] XR KNEE RIGHT 2 VIEWS (STAND DENNIS)on 03-18-2020 XR KNEE RIGHT 2 VIEWS (STANDARD) AP and lateral radiographs of the right knee have been obtained today in the office at my request. I have personally reviewed them. There is a nondisplaced right lateral tibial plateau fracture. There is no significant depression. There is no chondral widening. The joint is well-preserved with minimal arthritic changes. Dictated by: SMOOTH EASON on TueMar 18, 2020 4:21:09 PM EDT Transcribed by: SMOOTH EASON on TueMar 18, 2020 4:21:09 PM EDT Finalized by: SMOOTH EASON on TueMar 18, 2020 4:21:[address] [facility] Comment on above: Order Comment: Injur y/Trauma or Illness?:Injury/Trauma How long have you had these symptoms (acute/chronic)?:Acute Reason for exam?:f/u History of cancer?:unknown Surgeries, chemotherapy, or radiation?:unknown Type of Exam?:Subsequent/Follow-up Mechanism of injury?:accident XR Knee Right 2 Views (Stand dennis)on 03-18-2020 AP and lateral radiographs of the right knee have been obtained today in the office at my request. I have personally reviewed them. There is a nondisplaced right lateral tibial plateau fracture. There is no significant depression. There is no chondral widening. The joint is well-preserved with minimal arthritic changes. [facility] CT Knee Right Without Contra ston 03-04-2020 EXAMINATION: CT OF THE RIGHT KNEE WITHOUT CONTRAST 03/04/2020 TECHNIQUE: CT of the right knee was performed without the administration of intravenous contrast. Multiplanar reformatted images are provided for review. Dose modulation, iterative reconstruction, and/or weight based adjustment of the mA/kV was utilized to reduce the radiation dose to as low as reasonably achievable. COMPARISON: Radiograph dated 03/03/2020. HISTORY: ORDERING SYSTEM PROVIDED HISTORY: lateral pain s/p fall; tibial plateau fx on xray; TECHNOLOGIST PROVIDED HISTORY: Injury/Trauma Acuity: Acute Reason for Exam: lateral pain s/p fall; tibial plateau fx on xray Type of Encounter: Initial Mechanism of Injury: lateral pain s/p fall; tibial plateau fx on xray Additional signs and symptoms: lateral pain s/p fall; tibial plateau fx on xray ORDERING SYSTEM PROVIDED DIAGNOSIS CODES: S82.141A Closed fracture of right tibial plateau, initial encounter W19.XXXA Fall, initial encounter R03.0 Elevated blood pressure reading M25.561 Acute pain of right knee FINDINGS: Acute fracture of the central and posterior aspects of lateral tibial plateau noted with up to 0.2 cm cortical depression at the level of the articular surface. The main fracture line is and sagittal oblique orientation. In addition, there is a nondisplaced fracture line extending through the tibial spines. Distal femur, proximal fibula, and patella are intact. Moderate size lipohemarthrosis is noted in the right knee. There is no sizable Chahal's cyst. Acute proximal tibial fractures. Moderate size lipohemarthrosis. Workstation ID: [id number] [facility] Interface, Rad In [facility] - 03/04/2020 2:46 AM EDT EXAMINATION: CT OF THE RIGHT KNEE WITHOUT CONTRAST 03/04/2020 TECHNIQUE: CT of the right knee was performed without the administration of intravenous contrast. Multiplanar reformatted images are provided for review. Dose modulation, iterative reconstruction, and/or weight based adjustment of the mA/kV was utilized to reduce the radiation dose to as low as reasonably achievable. COMPARISON: Radiograph dated 03/03/2020. HISTORY: ORDERING SYSTEM PROVIDED HISTORY: lateral pain s/p fall; tibial plateau fx on xray; TECHNOLOGIST PROVIDED HISTORY: Injury/Trauma Acuity: Acute Reason for Exam: lateral pain s/p fall; tibial plateau fx on xray Type of Encounter: Initial Mechanism of Injury: lateral pain s/p fall; tibial plateau fx on xray Additional signs and symptoms: lateral pain s/p fall; tibial plateau fx on xray ORDERING SYSTEM PROVIDED DIAGNOSIS CODES: S82.141A Closed fracture of right tibial plateau, initial encounter W19.XXXA Fall, initial encounter R03.0 Elevated blood pressure reading M25.561 Acute pain of right knee FINDINGS: Acute fracture of the central and posterior aspects of lateral tibial plateau noted with up to 0.2 cm cortical depression at the level of the articular surface. The main fracture line is and sagittal oblique orientation. In addition, there is a nondisplaced fracture line extending through the tibial spines. Distal femur, proximal fibula, and patella are intact. Moderate size lipohemarthrosis is noted in the right knee. There is no sizable Chahal's cyst. Acute proximal tibial fractures. Moderate size lipohemarthrosis. Workstation ID: [id number] XR Knee Right 2 Views (Stand dennis)on 03-04-2020 Lateral tibial plateau fracture with moderate lipohemarthrosis. Workstation ID: [email or web address] EXAMINATION: TWO XRA Y VIEWS OF THE RIGHT KNEE 03/03/2020 11:30 pm COMPARISON: 02/13/2020 HISTORY: ORDERING SYSTEM PROVIDED HISTORY: generalized pain s/p fall; TECHNOLOGIST PROVIDED HISTORY: Illness/Other Acuity: Acute Reason for Exam: generalized pain s/p fall Type of Encounter: Initial Additional signs and symptoms: unk FINDINGS: A lateral tibial plateau fracture is noted. Moderate lipohemarthrosis. The distal femur and patella appear intact.. [facility] Interface, Rad In [employer] - 03/04/2020 12:10 AM EDT EXAMINATION: TWO XRAY VIEWS OF THE RIGHT KNEE 03/03/2020 11:30 pm COMPARISON: 02/13/2020 HISTORY: ORDERING SYSTEM PROVIDED HISTORY: generalized pain s/p fall; TECHNOLOGIST PROVIDED HISTORY: Illness/Other Acuity: Acute Reason for Exam: generalized pain s/p fall Type of Encounter: Initial Additional signs and symptoms: unk FINDINGS: A lateral tibial plateau fracture is noted. Moderate lipohemarthrosis. The distal femur and patella appear intact.. IMPRESSION: Lateral tibial plateau fracture with moderate lipohemarthrosis. Workstation ID: [id number] [facility] XR KNEE RIGHT 2 VIEWS (STAND DENNIS)on 02-13-2020 XR KNEE RIGHT 2 VIEWS (STANDARD) X-rays of the Right Knee (3 views, AP, lateral, and sunrise views) Findings: Normal bone mineralization. The joint spaces are decreased in the anterior compartment. The patella is well seated in the trochlear groove. There is no evidence of fracture or dislocation. Impression: Bilateral Knee Anterior Compartment Joint Space Narrowing Dictated by: SRINIVAS HACKETT IV on TueFeb 13, 2020 6:59:59 PM EDT Transcribed by: SRINIVAS HACKETT IV on TueFeb 13, 2020 6:59:59 PM EDT Finalized by: SRINIVAS HACKETT IV on TueFeb 13, 2020 6:59:59 PM EDT Normal [facility] Comment on above: Order Comment: Injur y/Trauma or Illness?:Injury/Trauma How long have you had these symptoms (acute/chronic)?:Chronic Reason for exam?:f/u History of cancer?:unknown Surgeries, chemotherapy, or radiation?:unknown Type of Exam?:Subsequent/Follow-up Mechanism of injury?:pain XR Knee Right 2 Views (Stand dennis)on 02-13-2020 X-rays of the Right Knee (3 views, AP, lateral, and sunrise views) Findings: Normal bone mineralization. The joint spaces are decreased in the anterior compartment. The patella is well seated in the trochlear groove. There is no evidence of fracture or dislocation. Impression: Bilateral Knee Anterior Compartment Joint Space Narrowing [facility] 03-03-2019 Anion gap [Moles/Vol] 14 mmol/L 10 - 20 mmol/L [facility] Calcium [Mass/Vol] 9.3 mg/dL 8.4 - 10. 2 mg/dL [facility] Chloride [Moles/Vol] 102 mmol/L 98 - 108 mmol/L [facility] Creatinine [Mass/Vol] 0.60 mg/dL Low 0.8 - 1.3 mg/dL [facility] GFR/1.73 sq M predicted among non-blacks MDRD (S/P/Bld) [Vol rate/Area] The eGFR should be used for monitoring renal function only and not for medication dosing. [facility] GFR/1.73 sq M.predicted CKD-EPI (S/P/Bld) [Vol rate/Area] 104 >=60 mL/min/1.73 m2 [facility] Glucose [Mass/Vol] 98 mg/dL 65 - 99 mg/dL [facility] HCO3 [Moles/Vol] 28 mmol/L 21 - 32 mmol/L [facility] Interpretation and review of laboratory results Abnormal [facility] Potassium [Moles/Vol] 4.8 mmol/L 3.5 - 5.1 mmol/L [facility] Sodium [Moles/Vol] 139 mmol/L 135 - 145 mmol/L [facility] Urea nitrogen [Mass/Vol] 23 mg/dL 8 - 25 mg/dL [facility] Urea nitrogen/Creatinine [Mass ratio] 38.3 mg/mg High [facility] CBC WITH AUTO DIFFERENTIALon 03-03-2019 Basophils (Bld) [#/Vol] 0.02 10*3/uL [facility] Basophils/100 WBC (Bld) 0.4 % [facility] Eosinophils (Bld) [#/Vol] 0.16 10*3/uL [facility] Eosinophils/100 WBC (Bld) 3.6 % [facility] Erythrocyte distribution width (RBC) [Entitic vol] 11.7 % 11.6 - 14.8 % [facility] Hematocrit (Bld) [Volume fraction] 37.9 % Low 41 - 53 % [facility] Hemoglobin (Bld) [Mass/Vol] 12.8 g/dL Low 13.5 - 17.5 g/dL [facility] Immature granulocytes (Bld) [#/Vol] 0.00 10*3/uL [facility] Immature granulocytes/100 WBC (Bld) 0.00 % [facility] Comment on above: The IG parameter is the percentage of metamyelocytes, myelocytes, and promyelocytes. Interpretation and review of laboratory results Abnormal [facility] Lymphocytes (Bld) [#/Vol] 1.50 10*3/uL [facility] Lymphocytes/100 WBC (Bld) 33.6 % [facility] MCH (RBC) [Entitic mass] 32.4 pg 26 - 34 pg [facility] MCHC (RBC) [Mass/Vol] 33.8 g/dL 31 - 37 g/dL [facility] MCV (RBC) [Entitic vol] 95.9 fL 80 - 100 fL [facility] Monocytes (Bld) [#/Vol] 0.57 10*3/uL [facility] Monocytes/100 WBC (Bld) 12.8 % [facility] Neutrophils (Bld) [#/Vol] 2.22 10*3/uL [facility] Neutrophils/100 WBC (Bld) 49.6 % [facility] Nucleated RBC (Bld) [#/Vol] 0.00 10*3/uL [facility] Nucleated RBC/100 WBC (Bld) [Ratio] 0.0 % [facility] Platelet mean volume (Bld) [Entitic vol] 9.8 fL 9 - 15.5 fL [facility] Platelets (Bld) [#/Vol] 249 10*3/uL [facility] RBC (Bld) [#/Vol] 3.95 10*6/uL Low [facility] WBC (Bld) [#/Vol] 4.47 10*3/uL Low [facility] Hepatic Function Panel (LFT) on 03-03-2019 Albumin [Mass/Vol] 4.4 g/dL 3.2 - 5.2 g/dL [facility] ALP [Catalytic activity/Vol] 75 U/L 40 - 150 U/L [facility] ALT [Catalytic activity/Vol] 10 U/L 0 - 40 U/L [facility] AST [Catalytic activity/Vol] 14 U/L 0 - 45 U/L [facility] Bilirubin [Mass/Vol] mg/dL 0 - 1.3 mg/dL [facility] Bilirubin.conjugate d [Mass/Vol] mg/dL 0 - 0.4 mg/dL [facility] Interpretation and review of laboratory results Normal [facility] Protein [Mass/Vol] 7.1 g/dL 6 - 8 g/dL [facility] alth Lipaseon 03-03-2019 Interpretation and review of laboratory results Normal [facility] Lipase [Catalytic activity/Vol] 28 U/L 15 - 65 U/L [facility] Otheron 03-03-2019 Extra Tube Hold for add-ons. [facility] Comment on above: Auto resulted. XR Clavicle Lefton 7 XR Clavicle Left AP and 10? cephalad AP radiographs of the left clavicle been obtained today in the office. I have personally reviewed them. Again demonstrated is a minimally displaced fracture of the acromial end of the left clavicle. There is minimal displacement. There is no appreciable increase in the coracoclavicular distance. The ipsilateral acromioclavicular joint appears to have reduced. The glenohumeral joint is well reduced. I do see no other fractures or dislocations. There appears to be increased healing at the fracture site. Invalid Interpretation Code [facility] XR Clavicle Lefton 7 XR Clavicle Left AP and 10? cephalad AP radiographs of the left clavicle have been obtained today in the office. I personally reviewed them. There is a minimally displaced fracture of the acromial end of the left clavicle. There appears to be some callus formation however the callus is incomplete. The fracture is not united. The ipsilateral acromioclavicular joint appears to be well reduced. I do not see any other fractures or dislocations. Invalid Interpretation Code [employer] Vital Signs Date Time Vital Sign Value Performing Clinician Facility 08-16-2023 15:18-0400 Body height 162.6 cm NATALIE Rosales III, MD Work Phone: [facility] 08-16-2023 15:18-0400 Body mass index (BMI) [Ratio] 23.72 kg/m2 NATALIE Rosales III, MD Work Phone: [facility] 08-16-2023 15:18-0400 Body temperature 97.5 [degF] NATALIE Rosales III, MD Work Phone: [facility] 08-16-2023 15:18-0400 Body weight 62.69 kg NATALIE Rosales III, MD Work Phone: [facility] 08-16-2023 15:18-0400 Diastolic blood pressure 67 mm[Hg] NATALIE Rosales III, MD Work Phone: [facility] 08-16-2023 15:18-0400 Heart rate 77 /min NATALIE Rosales III, MD Work Phone: [facility] 08-16-2023 15:18-0400 Respiratory rate 16 /min NATALIE Rosales III, MD Work Phone: [facility] 08-16-2023 15:18-0400 SaO2% (BldA) [Mass fraction] 99 % NATALIE Rosales III, MD Work Phone: [facility] 08-16-2023 15:18-0400 Systolic blood pressure 147 mm[Hg] NATALIE Rosales III, MD Work Phone: [facility] 05-02-2023 15:20-0500 Body height 165.1 cm NATALIE Rosales III, MD Work Phone: [facility] 05-02-2023 15:20-0500 Body mass index (BMI) [Ratio] 22.98 kg/m2 NATALIE Rosales III, MD Work Phone: [facility] 05-02-2023 15:20-0500 Body temperature 97.5 [degF] NATALIE Rosales III, MD Work Phone: [facility] 05-02-2023 15:20-0500 Body weight 62.64 kg NATALIE Rosales III, MD Work Phone: [facility] 05-02-2023 15:20-0500 Diastolic blood pressure 82 mm[Hg] NATALIE Rosales III, MD Work Phone: [facility] 05-02-2023 15:20-0500 Heart rate 62 /min NATALIE Rosales III, MD Work Phone: [facility] 05-02-2023 15:20-0500 Respiratory rate 16 /min NATALIE Rosales III, MD Work Phone: [facility] 05-02-2023 15:20-0500 SaO2% (BldA) [Mass fraction] 95 % NATALIE Rosales III, MD Work Phone: [facility] 05-02-2023 15:20-0500 Systolic blood pressure 141 mm[Hg] NATALIE Rosales III, MD Work Phone: [facility] 04-05-2023 13:30-0500 Body temperature 98.01 [degF] Dre Villalobos Jr., MD Work Phone: [facility] 04-05-2023 13:30-0500 Diastolic blood pressure 57 mm[Hg] Dre Villalobos Jr., MD Work Phone: [facility] 04-05-2023 13:30-0500 Heart rate 75 /min Dre Villalobos Jr., MD Work Phone: [facility] 04-05-2023 13:30-0500 Respiratory rate 19 /min Dre Villalobos Jr., MD Work Phone: [facility] 04-05-2023 13:30-0500 SaO2% (BldA) [Mass fraction] 98 % Dre Villalobos Jr., MD Work Phone: [facility] 04-05-2023 13:30-0500 Systolic blood pressure 113 mm[Hg] Dre Villalobos Jr., MD Work Phone: 4(599)451-477824 [address] 04-05-2023 12:23-0500 Body height 165.1 cm Dre Villalobos Jr., MD Work Phone: 5(735)212-205924 [address] 04-05-2023 12:23-0500 Body mass index (BMI) [Ratio] 22.73 kg/m2 Dre Villalobos Jr., MD Work Phone: [facility] 04-05-2023 12:23-0500 Body weight 61.96 kg Dre Villalobos Jr., MD Work Phone: [facility] 01-17-2023 15:52-0400 Body height 162.6 cm Jessika Rosales III, MD Work Phone: [facility] 01-17-2023 15:52-0400 Body mass index (BMI) [Ratio] 23.38 kg/m2 Jessika Rosales III, MD Work Phone: [facility] 01-17-2023 15:52-0400 Body temperature 97.81 [degF] Jessika Rosales III, MD Work Phone: 7(246)165-996682 [place] [address] 01-17-2023 15:52-0400 Body weight 61.78 kg Jessika Rosales III, MD Work Phone: 3(876)681-288276 [place] [address] 01-17-2023 15:52-0400 Diastolic blood pressure 80 mm[Hg] Jessika Rosales III, MD Work Phone: 5(623)030-388076 [place] [address] 01-17-2023 15:52-0400 Heart rate 68 /min Jessika Rosales III, MD Work Phone: 5(654)169-234676 [place] [address] 01-17-2023 15:52-0400 Respiratory rate 20 /min Jessika Rosales III, MD Work Phone: 2(741)146-702076 [place] [address] 01-17-2023 15:52-0400 SaO2% (BldA) [Mass fraction] 98 % Jessika Rosales III, MD Work Phone: 3(006)567-245576 [place] [address] 01-17-2023 15:52-0400 Systolic blood pressure 156 mm[Hg] Jessika Rosales III, MD Work Phone: 4(828)169-085676 [place] [address] 09-27-2022 15:39-0400 Body height 162.6 cm Jessika Rosales III, MD Work Phone: 4(669)111-502776 [place] [address] 09-27-2022 15:39-0400 Body mass index (BMI) [Ratio] 23.89 kg/m2 Jessika Rosales III, MD Work Phone: 3(189)741-332782 [place] [address] 09-27-2022 15:39-0400 Body temperature 97.3 [degF] Jessika Rosales III, MD Work Phone: 4(558)[phone] [place] [address] 09-27-2022 15:39-0400 Body weight 63.14 kg Jessika Rosales III, MD Work Phone: 5(894)588-126082 [place] [address] 09-27-2022 15:39-0400 Diastolic blood pressure 72 mm[Hg] Jessika Rosales III, MD Work Phone: [facility] 09-27-2022 15:39-0400 Heart rate 67 /min Jessika Rosales III, MD Work Phone: [facility] 09-27-2022 15:39-0400 Respiratory rate 12 /min Jessika Rosales III, MD Work Phone: [facility] 09-27-2022 15:39-0400 Systolic blood pressure 153 mm[Hg] Jessika Rosales III, MD Work Phone: [facility] 06-24-2022 13:22-0500 Body height 162.6 cm Dariana Conklin MD Work Phone: [facility] 06-24-2022 13:22-0500 Body mass index (BMI) [Ratio] 23.17 kg/m2 Dariana Conklin MD Work Phone: [facility] 06-24-2022 13:22-0500 Body temperature 96.69 [degF] Dariana Conklin MD Work Phone: [facility] 06-24-2022 13:22-0500 Body weight 61.24 kg Dariana Conklin MD Work Phone: [facility] 06-24-2022 13:22-0500 Heart rate 82 /min Dariana Conklin MD Work Phone: [facility] 06-24-2022 13:22-0500 SaO2% (BldA) [Mass fraction] 99 % Dariana Conklin MD Work Phone: [facility] 03-22-2022 16:10-0400 Body mass index (BMI) [Ratio] 23.03 kg/m2 Jessika Rosales III, MD Work Phone: [facility] 03-22-2022 16:10-0400 Body temperature 98.01 [degF] Jessika Rosales III, MD Work Phone: 6(354)436-347282 [place] [address] 03-22-2022 16:10-0400 Body weight 64.14 kg Jessika Rosales III, MD Work Phone: 6(516)090-702776 [place] [address] 03-22-2022 16:10-0400 Diastolic blood pressure 79 mm[Hg] Jessika Rsoales III, MD Work Phone: 3(494)190-547176 [place] [address] 03-22-2022 16:10-0400 Heart rate 63 /min Jessika Rosales III, MD Work Phone: 8(845)969-134176 [place] [address] 03-22-2022 16:10-0400 Respiratory rate 16 /min Jessika Rosales III, MD Work Phone: 4(492)493-509376 [place] [address] 03-22-2022 16:10-0400 SaO2% (BldA) [Mass fraction] 100 % Jessika Rosales III, MD Work Phone: 3(420)600-367576 [place] [address] 03-22-2022 16:10-0400 Systolic blood pressure 179 mm[Hg] Jessika Rosales III, MD Work Phone: 9(488)226-747376 [place] [address] 12-30-2020 09:33-0400 Body height 166.9 cm Jessika Rosales III, MD Work Phone: 1(754)078-369076 [place] [address] Comment on above: without shoes [facility] 12-30-2020 09:33-0400 Body mass index (BMI) [Ratio] 21.76 kg/m2 Jessika Rosales III, MD Work Phone: 0(341)555-531776 [place] [address] 12-30-2020 09:33-0400 Body temperature 97.59 [degF] Jessika Rosales III, MD Work Phone: [phone] [place] [address] 12-30-2020 09:33-0400 Body weight 60.6 kg Jessika Rosales III, MD Work Phone: [facility] Comment on above: without shoes [email or web address] 12-30-2020 09:33-0400 Diastolic blood pressure 74 mm[Hg] Jessika Rosales III, MD Work Phone: [facility] 12-30-2020 09:33-0400 Heart rate 64 /min Jessika Rosales III, MD Work Phone: [facility] 12-30-2020 09:33-0400 Respiratory rate 16 /min Jessika Rosales III, MD Work Phone: [facility] 12-30-2020 09:33-0400 SaO2% (BldA) [Mass fraction] 100 % Jessika Rosales III, MD Work Phone: [facility] 12-30-2020 09:33-0400 Systolic blood pressure 151 mm[Hg] Jessika Rosales III, MD Work Phone: [facility] 11-14-2020 09:06-0400 Body height 162.6 cm Srinivas Hackett IV, MD Work Phone: [facility] 11-14-2020 09:06-0400 Body mass index (BMI) [Ratio] 23.17 kg/m2 Srinivas Hackett IV, MD Work Phone: [facility] 11-14-2020 09:06-0400 Body temperature 97.9 [degF] Srinivas Hackett IV, MD Work Phone: [facility] 11-14-2020 09:06-0400 Body weight 61.24 kg Srinivas Hackett IV, MD Work Phone: [facility] 11-14-2020 09:06-0400 Diastolic blood pressure 93 mm[Hg] Srinivas Hackett IV, MD Work Phone: [facility] Comment on above: pt walked a few blocks to get here 11-14-2020 09:06-0400 Heart rate 56 /min Srinivas Hackett IV, MD Work Phone: [facility] 11-14-2020 09:06-0400 Systolic blood pressure 182 mm[Hg] Srinivas Hackett IV, MD Work Phone: [facility] Comment on above: pt walked a few blocks to get here 09-17-2020 13:59-0400 Diastolic blood pressure 98 mm[Hg] Chontelle Degler DO Work Phone: [facility] Comment on above: Patient states he did not take his BP me dication this morning 09-17-2020 13:59-0400 Systolic blood pressure 182 mm[Hg] Chontelle Degler DO Work Phone: [facility] Comment on above: Patient states he did not take his BP me dication this morning 09-17-2020 13:00-0400 Body temperature 97.81 [degF] Chontelle Degler DO Work Phone: [facility] 09-17-2020 13:00-0400 Heart rate 74 /min Chontelle Degler DO Work Phone: [facility] 09-17-2020 13:00-0400 Respiratory rate 18 /min Chontelle Degler DO Work Phone: [facility] 09-17-2020 13:00-0400 SaO2% (BldA) [Mass fraction] 98 % Chontelle Degler DO Work Phone: [facility] 05-21-2020 15:18-0500 Body Temperature 98.4 [degF] Karen Peñaloza [facility] 05-21-2020 15:18-0500 BP Diastolic 99 mm[Hg] Karen [facility] 05-21-2020 15:18-0500 BP Systolic 192 mm[Hg] Karen Peñaloza [facility] 05-21-2020 15:18-0500 Pulse (Heart Rate) 68 /min [facility] 05-21-2020 15:18-0500 Pulse Oximetry 98 % [facility] 05-21-2020 15:18-0500 Respiratory Rate 16 /min [facility] 05-21-2020 15:09-0500 BMI (Body Mass Index) 25.06 kg/m2 [facility] 05-21-2020 15:09-0500 Body weight 66.22 kg Karen Peñaloza [facility] 05-21-2020 15:09-0500 Height 162.6 cm [facility] 05-21-2020 14:39-0500 BMI (Body Mass Index) 22.47 kg/m2 [facility] 05-21-2020 14:39-0500 Body Temperature 97.9 [degF] [facility] 05-21-2020 14:39-0500 Body weight 61.24 kg [facility] 05-21-2020 14:39-0500 BP Diastolic 86 mm[Hg] [facility] 05-21-2020 14:39-0500 BP Systolic 164 mm[Hg] [facility] 05-21-2020 14:39-0500 Height 165.1 cm [facility] 05-21-2020 14:39-0500 Pulse (Heart Rate) 64 /min [facility] 05-21-2020 14:39-0500 Pulse Oximetry 100 % [facility] 04-24-2020 13:33-0500 Body Temperature 98.49 [degF] [facility] 04-24-2020 13:33-0500 Pulse (Heart Rate) 88 /min [facility] 04-24-2020 13:33-0500 Pulse Oximetry 100 % [facility] 04-24-2020 13:33-0500 Respiratory Rate 14 /min [facility] 03-18-2020 15:35-0400 BMI (Body Mass Index) 22.47 kg/m2 [facility] 03-18-2020 15:35-0400 Body Temperature 97.11 [degF] [facility] 03-18-2020 15:35-0400 Body weight 61.24 kg [facility] 03-18-2020 15:35-0400 BP Diastolic 87 mm[Hg] [facility] 03-18-2020 15:35-0400 BP Systolic 168 mm[Hg] [facility] 03-18-2020 15:35-0400 Height 165.1 cm [facility] 03-18-2020 15:35-0400 Pulse (Heart Rate) 70 /min [facility] 03-04-2020 00:45-0400 BP Diastolic 87 mm[Hg] Karelyhe Mcdaniels [facility] 03-04-2020 00:45-0400 BP Systolic 154 mm[Hg] Karelyhe Mcdaniels [facility] 03-04-2020 00:45-0400 Pulse (Heart Rate) 95 /min Karelyalex Mcdaniels [facility] 03-04-2020 00:45-0400 Pulse Oximetry 95 % [facility] 00:45-0400 Respiratory Rate 16 /min [facility] [place] 03-03-2020 22:46-0400 Body Temperature 98.29 [degF] [facility] [place] 02-13-2020 08:24-0400 BMI (Body Mass Index) 23.3 kg/m2 Srinivas Hiawatha [facility] 02-13-2020 08:24-0400 Body Temperature 97.59 [degF] [facility] 02-13-2020 08:24-0400 Body weight 63.5 kg [facility] 02-13-2020 08:24-0400 BP Diastolic 99 mm[Hg] [facility] 02-13-2020 08:24-0400 BP Systolic 172 mm[Hg] [facility] 02-13-2020 08:24-0400 Height 165.1 cm [facility] 02-13-2020 08:24-0400 Pulse (Heart Rate) 76 /min [facility] 02-13-2020 08:24-0400 Pulse Oximetry 99 % [facility] 03-03-2019 14:34-0400 Body Temperature 97.59 [degF] [facility] 14:[facility]0400 BP Diastolic 84 mm[Hg] [facility] 03-03-2019 14:34-0400 BP Systolic 133 mm[Hg] [facility] 03-03-2019 14:34-0400 Pulse (Heart Rate) 64 /min [facility] 03-03-2019 14:34-0400 Pulse Oximetry 100 % [facility] 03-03-2019 14:34-0400 Respiratory Rate 16 /min [facility] 03-24-2017 13:59-0400 BMI (Body Mass Index) 23.3 kg/m2 [employer] Work Phone: 03-24-2017 13:59-0400 Body Temperature 97.59 [degF] [employer] Work Phone: 03-24-2017 13:59-0400 Height 165.1 cm Smooth Evan [employer] Work Phone: 03-24-2017 13:59-0400 Pulse (Heart Rate) 68 /min Smooth Evan [employer] Work Phone: 03-24-2017 13:59-0400 Weight 63.5 kg [employer] Work Phone: 01-13-2017 09:27-0400 BMI (Body Mass Index) 23.3 kg/m2 [employer] Work Phone: 01-13-2017 09:27-0400 Body Temperature 97.2 [degF] [employer] Work Phone: 01-13-2017 09:27-0400 Height 165.1 cm [employer] Work Phone: 01-13-2017 09:27-0400 Pulse (Heart Rate) 64 /min [employer] Evan [employer] Work Phone: 01-13-2017 09:27-0400 Weight 63.5 kg Smooth Evan [employer] Work Phone: Encounters Encounter Date Encounter Type Care Provider Facility Start: 10-05-2023 End: 10-05-2023 Emergency department patient visit KAREN PEÑALOZA [facility] Start: 08-16-2023 ambulatory LABOURE OKOROAFOR Facil ity:[facility] Start: 08-16-2023 End: 08-16-2023 Office outpatient visit 40 minutes Missy Rosales MD Work Phone: Medical Oncology at [facility] Comment on above: Prostate cancer (Silvina ken Dx) Start: 05-11-2023 End: 05-11-2023 Emergency department patient visit KYLE RAMESH [facility] Start: 05-02-2023 ambulatory Missy ROSALES III Facilit y:[facility] Start: 05-02-2023 End: 05-02-2023 Office outpatient visit 25 minutes Missy Rosales MD Work Phone: Medical Oncology at The [facility] Comment on above: Prostate cancer (Silvina ken Dx) Start: 04-05-2023 ambulatory DRE VILLALOBOS JR. Fa cility:[facility] Start: 04-05-2023 End: 04-05-2023 Subsequent hospital visit by physician Dre Villalobos MD Work Phone: [facility] [place] Comment on above: Arrived Start: 01-17-2023 ambulatory LABOURE OKOROAFOR Facil ity:[facility] Start: 01-17-2023 End: 01-17-2023 Office outpatient visit 25 minutes Jessika Rosales MD Work Phone: Medical Oncology at [facility] Comment on above: Prostate cancer (Silvina ken Dx) Start: 11-09-2022 ambulatory LABOURE OKOROAFOR Facil ity:[facility] Start: 09-27-2022 ambulatory LABOURE OKOROAFOR Facil ity:[facility] Start: 09-27-2022 End: 09-27-2022 Office outpatient visit 25 minutes Jessika Rosales MD Work Phone: Division of Medical Oncology at The [facility] Comment on above: Prostate cancer (Silvina ken Dx) Start: 06-24-2022 End: 06-24-2022 Office outpatient visit 15 minutes Dariana Conklin MD Work Phone: [facility] Comment on above: Chronic bilateral lo w back pain without sciatica (Primary Dx); Spondylosis of lumbar region without myelopathy or radiculopathy; Lumbar degenerative disc disease; Lumbar facet arthropathy Start: 06-22-2022 End: 06-22-2022 Patient encounter procedure Jessika Rosales MD Work Phone: Division of Medical Oncology at The [facility] Comment on above: Prostate cancer (Silvina ken Dx) Start: 03-22-2022 End: 03-22-2022 Subsequent hospital visit by physician Karen Edmonds APRN-FREIGHT CLERK Work Phone: [facility] [place] Comment on above: Arrived Start: 03-22-2022 End: 03-22-2022 Office outpatient visit 40 minutes Jessika Rosales MD Work Phone: Division of Medical Oncology at [facility] Comment on above: Mid back pain (Prima ry Dx); Prostate cancer; Acute bilateral low back pain with left-sided sciatica Start: 12-30-2020 End: 12-30-2020 Office outpatient visit 25 minutes Jessika Rosales MD Work Phone: Division of Medical Oncology at [facility] Comment on above: Prostate cancer (Silvina ken Dx) Start: 11-14-2020 End: 11-14-2020 ambulatory SMOOTH EASON [facility] Start: 11-14-2020 End: 11-14-2020 Office outpatient visit 15 minutes Srinivas Hackett MD Work Phone: [facility] Comment on above: Primary osteoarthrit is of both knees (Primary Dx) Start: 10-13-2020 ambulatory SMOOTH RHODES [facility] Amb[facility] Start: 09-17-2020 End: 09-17-2020 Emergency department patient visit Keily Davey Catie DO Work Phone: [facility] Emergency Department Start: 09-05-2020 ambulatory SMOOTH RHODES [facility] Start: 06-30-2020 End: 06-30-2020 Orders Only Lisa Mireya Bedoya Work Phone: [facility] Start: 05-21-2020 End: 05-22-2020 ambulatory SMOOTH EASON [facility] Start: 05-21-2020 End: 05-21-2020 Emergency department patient visit Karen Peñaloza Work Phone: [facility] Emergency Department Comment on above: Hemorrhoids, unspeci fied hemorrhoid type (Primary Dx); Elevated blood pressure reading Start: 05-21-2020 End: 05-21-2020 Subsequent hospital visit by physician Smooth Eason Work Phone: [facility] Comment on above: Closed displaced fra cture of lateral condyle of right tibia with routine healing Start: 05-21-2020 End: 05-21-2020 Office outpatient visit 10 minutes Smooth Eason Work Phone: [facility] Comment on above: Closed fracture of l ateral portion of right tibial plateau, with routine healing, subsequent encounter (Primary Dx) Start: 04-24-2020 End: 04-25-2020 ambulatory SMOOTH EASON [facility] Start: 04-24-2020 End: 04-24-2020 Subsequent hospital visit by physician Smooth Eason Work Phone: [facility] Comment on above: Displaced fracture o f lateral condyle of right tibia Start: 04-24-2020 End: 04-24-2020 Office outpatient visit 10 minutes Smooth Eason Work Phone: [facility] Comment on above: Closed fracture of l ateral portion of right tibial plateau, with routine healing, subsequent encounter (Primary Dx) Start: 03-18-2020 End: 03-19-2020 ambulatory SMOOTH EASON [facility] Start: 03-18-2020 End: 03-18-2020 Subsequent hospital visit by physician Smooth Eason Work Phone: [facility] Comment on above: Tibial plateau fract ure Start: 03-18-2020 End: 03-18-2020 Office outpatient new 30 minutes Smooth Eason Work Phone: [facility] Comment on above: Closed fracture of l ateral portion of right tibial plateau, initial encounter (Primary Dx) Start: 03-03-2020 End: 03-04-2020 Emergency department patient visit Karely Mcdaniels Work Phone: [facility] Emergency Department Comment on above: Closed fracture of r ight tibial plateau, initial encounter (Primary Dx); Fall, initial encounter; Elevated blood pressure reading; Acute pain of right knee Start: 02-13-2020 End: 02-14-2020 ambulatory SRINIVAS HACKETT [facility] Start: 02-13-2020 End: 02-13-2020 Subsequent hospital visit by physician Srinivas Hackett Work Phone: [facility] Comment on above: Right knee pain Start: 02-13-2020 End: 02-13-2020 Office outpatient new 30 minutes Srinivas Hackett Work Phone: [facility] Comment on above: Primary osteoarthrit is of both knees (Primary Dx) Start: 03-03-2019 End: 03-03-2019 Emergency department patient visit Shaq Padillasaranyanoam Work Phone: [facility] Emergency Department Comment on above: Gastritis without bl eeding, unspecified chronicity, unspecified gastritis type (Primary Dx) Start: 03-29-2018 End: 03-29-2018 Patient encounter Srinivas Hackett Work Phone: [facility] Comment on above: Right hip pain Start: 03-24-2017 End: 03-24-2017 Ambulatory Smooth Eason Work Phone: [facility] Start: 03-24-2017 Office outpatient vi sit 15 minutes Smooth Eason Work Phone: [facility] Start: 02-09-2017 Ambulatory Smooth pittman Work Phone: [facility] Start: 02-04-2017 End: 02-04-2017 Patient encounter procedure [facility] Eason [facility] Comment on above: Decreased range of m otion of left shoulder;Closed nondisplaced fracture of acromial end of left clavicle with routine healing, subsequent encounter Start: 02-02-2017 Ambulatory Smooth fox Work Phone: [facility] Start: 01-21-2017 End: 01-21-2017 Patient encounter procedure Smooth Eason Work Phone: [facility] Comment on above: Decreased range of m otion of left shoulder;Closed nondisplaced fracture of acromial end of left clavicle with routine healing, subsequent encounter Start: 01-19-2017 Ambulatory Smooth Celis enc Work Phone: [facility] Start: 01-13-2017 End: 01-13-2017 Ambulatory Smooth Eason Work Phone: [facility] Start: 01-13-2017 Office/outpatient vi sit, est, level 3 Smooth Eason Work Phone: [facility] Start: 01-12-2017 End: 01-12-2017 Patient encounter procedure Smooth Eason Work Phone[facility] Comment on above: Decreased range of m otion of left shoulder;Closed nondisplaced fracture of acromial end of left clavicle with routine healing, subsequent encounter Start: 01-10-2017 End: 01-10-2017 Patient encounter procedure Smooth Eason Work Phone: [facility] Comment on above: Decreased range of m otion of left shoulder;Closed nondisplaced fracture of acromial end of left clavicle with routine healing, subsequent encounter Start: 01-07-2017 Ambulatory Smooth Celis [facility] Work Phone: [facility] Start: 01-05-2017 Ambulatory Smooth Celis [facility] Work Phone: [facility] Start: 12-31-2016 Ambulatory Smooth Celis [facility] Work Phone: [facility] Start: 12-29-2016 End: 12-29-2016 Patient encounter procedure Smooth Eason Work Phone: [facility] Comment on above: Decreased range of m otion of left shoulder;Closed nondisplaced fracture of acromial end of left clavicle with routine healing, subsequent encounter Start: 12-24-2016 Ambulatory Smooth Celis enc Work Phone: [facility] Start: 12-15-2016 End: 12-19-2016 Ambulatory SMOOTH RHODES [facility] Start: 12-10-2016 End: 12-14-2016 Ambulatory SMOOTH MEAGAN [facility] Procedures Date Procedure Procedure Detail Performing Clinician Start: 08-16-2023 PSA screening LABOURE O HERMAN Comment on above: Result Comment: Test results cannot be interpreted as absolute evidence for the presence or absence of malignant disease. This test was performed on the Siemens [employer] IM Immunoassay platform which is a 2-step sandwich chemiluminescent immunoassay. It is important to note that assays using different manufacturers and/or methods may not be comparable. Performed By: #### P SATM #### [facility] [place] (DEFAULT) [address] [place] [address] Start: 05-02-2023 PSA screening LABOURE O [facility] Comment on above: Result Comment: Test results cannot be interpreted as absolute evidence for the presence or absence of malignant disease. This test was performed on the Siemens Atellica IM Immunoassay platform which is a 2-step sandwich chemiluminescent immunoassay. It is important to note that assays using different manufacturers and/or methods may not be comparable. Performed By: #### P SATM #### Jacki [place] (DEFAULT) [address] [place] [address] Start: 04-05-2023 Colonoscopy flx dx w /collj spec when pfrmd Phil [place] SITECORE DEVELOPER-FREIGHT CLERK Work Phone: Start: 04-05-2023 Colonoscopy Dre benavides Jr., MD Work Phone: Start: 01-17-2023 PSA screening [facility] Comment on above: Result Comment: Test results cannot be interpreted as absolute evidence for the presence or absence of malignant disease. This test was performed on the Siemens Atellica IM Immunoassay platform which is a 2-step sandwich chemiluminescent immunoassay. It is important to note that assays using different manufacturers and/or methods may not be comparable. Performed By: #### P SATM #### [facility] [place] (DEFAULT) [address] [place] [address] Start: 11-09-2022 PSA screening [facility] Comment on above: Result Comment: This test was performed on the Siemens Atellica IM Immunoassay platform which is a 2-step sandwich chemiluminescent immunoassay. It is important to note that assays using different manufacturers and/or methods may not be comparable. Performed By: #### P SATM #### [facility] [place] (DEFAULT) [address] [place] [id number] Start: 09-27-2022 PSA screening GIOVANNYJohn Victor Hugo S[facility] Comment on above: Result Comment: This test was performed on the [employer] Immunoassay platform which is a 2-step sandwich chemiluminescent immunoassay. It is important to note that assays using different manufacturers and/or methods may not be comparable. Performed By: #### P SATM #### [facility] [place] (DEFAULT) [address] [place] [id number] Start: 03-22-2022 End: 03-22-2022 Radex spine thoracic 2 views Karen buck SITECORE DEVELOPER-FREIGHT CLERK Work Phone: Start: 03-22-2022 Creatinine blood Karen Edmonds SITECORE DEVELOPER-FREIGHT CLERK Work Phone: Start: 03-22-2022 Hepatic function panel Karen Edmonds SITECORE DEVELOPER-FREIGHT CLERK Work Phone: Start: 05-21-2020 Radiologic examinati on knee 1/2 views Smooth Eason Work Phone: Start: 04-24-2020 Radiologic examinati on knee 1/2 views Smooth Eason Work Phone: Start: 03-18-2020 Radiologic examinati on knee 1/2 views Smooth Eason Work Phone: Start: 03-04-2020 Ct lower extremity w /o contrast material Parrish Marroquin Work Phone: Start: 03-03-2020 Radiologic examinati on knee 1/2 views Parrish Marroquin Work Phone: Start: 02-13-2020 Radiologic examinati on knee 1/2 views Srinivas Eduardo Roxann Work Phone: Start: 04-18-2019 Lipid 1996 panel - S miles or Plasma Jessika Rosales III, MD Work Phone: Start: 03-03-2019 Basic metabolic 2000 panel - Serum or Plasma Shaq Murcia Work Phone: Start: 03-03-2019 Complete blood count with white cell differential, automated Shaq Murcia Work Phone: Start: 03-03-2019 Complete blood count with white cell differential, manual Shaq Murcia Work Phone: Start: 03-03-2019 Hepatic function 200 0 panel - Serum or Plasma Shaq Murcia Work Phone: Start: 03-03-2019 LAVENDER TOP Shaq Murcia Work Phone: Start: 03-03-2019 Lipase [Enzymatic activity/volume] in Serum or Plasma Shaq Murcia Work Phone: Start: 03-03-2019 MINT GREEN TOP Shaq Murcia Work Phone: Start: 03-03-2019 RAINBOW DRAW Shaq Murcia Work Phone: Start: 11-19-2015 Colonoscopy Jessika Tabares MD Work Phone: Plan of Treatment Date Care Activity Detail Author Start: 04-05-2028 Screening for malignant neoplasm of colon COLONOSCOPY [facility] Start: 08-15-2024 Potassium [Moles/volume] in Serum or Plasma POTASSIUM [facility] Start: 08-15-2024 Prostate specific antigen measurement PROSTATE CANCER SCREENING DISCUSSION [facility] Start: 05-02-2024 Prostate specific antigen measurement PROSTATE CANCER SCREENING DISCUSSION [facility] Start: 04-18-2024 Fasting lipid profile LIPID SCREENING [facility] Start: 04-18-2024 Lipid panel LIPID SCREENING [facility] Start: 01-18-2024 Potassium [Moles/volume] in Serum or Plasma POTASSIUM [facility] Start: 01-18-2024 Prostate specific antigen measurement PROSTATE CANCER SCREENING DISCUSSION [facility] Start: 11-16-2023 End: 08-15-2024 CMPN WITHOUT GLUCOSE CMPN WITHOUT GLUCOSE Lab Routine Prostate cancer Expected: 11/16/2023, Expires: 08/15/2024 [facility] Comment on above: Expected: 11/16/2023, Expires: Start: 11-16-2023 End: 08-15-2024 Complete blood count with white cell differential, automated CBC, EDIF, PLATELET Lab Routine Prostate cancer Expected: 11/16/2023, Expires: 08/15/2024 [facility] Comment on above: Expected: 11/16/2023, Expires: Start: 11-16-2023 End: 08-15-2024 PSA - DIAGNOSTIC/TUMOR MARKER PSA - DIAGNOSTIC/TUMOR MARKER Lab Routine Prostate cancer Expected: 11/16/2023, Expires: 08/15/2024 [facility] Comment on above: Expected: 11/16/2023, Expires: Start: 11-15-2023 End: 11-15-2023 Patient encounter procedure Clinical Lab at [facility] Start: 09-28-2023 Potassium [Moles/volume] in Serum or Plasma POTASSIUM [facility] Start: 09-28-2023 Prostate specific antigen measurement PROSTATE CANCER SCREENING DISCUSSION [facility] Start: 08-01-2023 End: 08-01-2023 Patient encounter procedure Clinical Lab at [facility] Start: 08-01-2023 End: 10-01-2023 CMPN WITHOUT GLUCOSE CMPN WITHOUT GLUCOSE Lab Routine Prostate cancer Expected: 08/01/2023, Expires: 10/01/2023 [facility] Comment on above: Expected: 08/01/2023, Expires: Start: 08-01-2023 End: 10-01-2023 Complete blood count with white cell differential, automated CBC, EDIF, PLATELET Lab Routine Prostate cancer Expected: 08/01/2023, Expires: 10/01/2023 [facility] Comment on above: Expected: 08/01/2023, Expires: Start: 08-01-2023 End: 10-01-2023 PSA - DIAGNOSTIC/TUMOR MARKER PSA - DIAGNOSTIC/TUMOR MARKER Lab Routine Prostate cancer Expected: 08/01/2023, Expires: 10/01/2023 [facility] Comment on above: Expected: 08/01/2023, Expires: Start: 06-22-2023 Potassium [Moles/volume] in Serum or Plasma POTASSIUM [facility] Start: 06-22-2023 Prostate specific antigen measurement PROSTATE CANCER SCREENING DISCUSSION [facility] Start: 05-16-2023 COVID-19 VACCINE (5 - Pfizer series) COVID-19 VACCINE (5 - Pfizer series) [facility] Start: 05-02-2023 End: 05-02-2023 Patient encounter procedure Clinical Lab at [facility] Start: 04-19-2023 End: 04-19-2023 Patient encounter procedure Clinical Lab at [facility] Start: 04-19-2023 End: 05-18-2023 PSA - DIAGNOSTIC/TUMOR MARKER PSA - DIAGNOSTIC/TUMOR MARKER Lab Routine Prostate cancer Expected: 04/19/2023, Expires: 05/18/2023 [facility] Comment on above: Expected: 04/19/2023, Expires: Start: 04-05-2023 End: 04-05-2023 Patient encounter procedure 04/05/2023 1:00 PM EST Appointment [facility] [address] [place] [id number] Dre Villalobos Jr., MD [address] [place] [address] [facility] [place] Start: 03-22-2023 Potassium [Moles/volume] in Serum or Plasma POTASSIUM [facility] Start: 03-22-2023 Prostate specific antigen measurement PROSTATE CANCER SCREENING DISCUSSION [facility] Start: 03-11-2023 COVID-19 VACCINE () COVID-19 VACCINE () [facility] Start: 01-21-2023 Influenza vaccination [facility] Start: 12-27-2022 End: 12-27-2022 Patient encounter procedure Clinical [facility] at [facility] Start: 12-27-2022 End: 09-21-2023 CMPN WITHOUT GLUCOSE CMPN WITHOUT GLUCOSE Lab Routine Prostate cancer Expected: 12/27/2022 (Approximate), Expires: 09/21/2023 [facility] Comment on above: Expected: 12/27/2022 (Approximate), Expi res: 09/21/2023 Start: 12-27-2022 End: 09-21-2023 Complete blood count with white cell differential, automated CBC, EDIF, PLATELET Lab Routine Prostate cancer Expected: 12/27/2022 (Approximate), Expires: 09/21/2023 [facility] Comment on above: Expected: 12/27/2022 (Approximate), Expi res: 09/21/2023 Start: 12-27-2022 End: 09-21-2023 PSA - DIAGNOSTIC/TUMOR MARKER PSA - DIAGNOSTIC/TUMOR MARKER Lab Routine Prostate cancer Expected: 12/27/2022 (Approximate), Expires: 09/21/2023 [facility] Comment on above: Expected: 12/27/2022 (Approximate), Expi res: 09/21/2023 Start: 11-09-2022 End: 11-09-2022 Patient encounter procedure 11/09/2022 Lab Encounter Clinical Pathology/Laboratory Medicine Jessika Rosales III, MD [address] [place], [place] [address]e [address] [place] [id number] [facility] at [facility] Start: 11-08-2022 End: 09-21-2023 PSA - DIAGNOSTIC/TUMOR MARKER PSA - DIAGNOSTIC/TUMOR MARKER Lab Routine Prostate cancer Expected: 11/08/2022 (Approximate), Expires: 09/21/2023 [facility] Comment on above: Expected: 11/08/2022 (Approximate), Expi res: 09/21/2023 Start: 06-24-2022 End: 06-24-2022 Patient encounter procedure 06/24/2022 Office Visit Multispecialty Dariana Conklin MD [address] [facility] [place] [id number] [facility] Start: 06-22-2022 End: 07-20-2022 Complete blood count with white cell differential, automated CBC, EDIF, PLATELET Lab Routine Prostate cancer Acute bilateral low back pain with left-sided sciatica Mid back pain Expected: 06/22/2022, Expires: 07/20/2022 [facility] Comment on above: Expected: 06/22/2022, Expires: 3 Start: 06-22-2022 End: 07-20-2022 Comprehensive metabolic 2000 panel - Serum or Plasma COMPREHENSIVE METABOLIC PANEL Lab Routine Prostate cancer Acute bilateral low back pain with left-sided sciatica Mid back pain Expected: 06/22/2022, Expires: 07/20/2022 [facility] Comment on above: Expected: 06/22/2022, Expires: 3 Start: 06-22-2022 End: 07-20-2022 PSA - DIAGNOSTIC/TUMOR MARKER PSA - DIAGNOSTIC/TUMOR MARKER Lab Routine Prostate cancer Acute bilateral low back pain with left-sided sciatica Mid back pain Expected: 06/22/2022, Expires: 07/20/2022 [facility] Comment on above: Expected: 06/22/2022, Expires: 3 Start: 06-22-2022 End: 06-22-2022 Patient encounter procedure Clinical [facility] at [facility] Start: 03-30-2022 End: 03-30-2022 Patient encounter procedure 03/30/2022 Office Visit Multispecialty Dariana Conklin MD [address] [facility] [place] [address] [facility] Start: 03-30-2022 Subsequent hospital visit by physician 03/30/2022 Hospital Encounter Magnetic Resonance Imaging Karen Edmonds, SITECORE DEVELOPER-FREIGHT CLERK [address] [facility] [address] [place] [id number] Imaging [facility] Start: 01-21-2022 Influenza vaccination INFLUENZA VACCINE (#1) [facility] Start: 12-30-2021 Prostate specific antigen measurement PROSTATE CANCER SCREENING DISCUSSION [facility] Start: 12-30-2021 End: 12-30-2021 PSA - DIAGNOSTIC/TUMOR MARKER PSA - DIAGNOSTIC/TUMOR MARKER Lab Routine Prostate cancer Expected: 12/30/2021 (Approximate), Expires: 12/30/2021 [facility] Comment on above: Expected: 12/30/2021 (Approximate), Expi res: 12/30/2021 Start: 12-29-2021 End: 12-29-2021 Patient encounter procedure Clinical Laboratories at [facility] Start: 07-02-2021 End: 12-30-2021 PSA - DIAGNOSTIC/TUMOR MARKER PSA - DIAGNOSTIC/TUMOR MARKER Lab Routine Prostate cancer Expected: 07/02/2021 (Approximate), Expires: 12/30/2021 [facility] Work Phone: Comment on above: Expected: 07/02/2021 (Approximate), Expi res: 12/30/2021 Start: 06-30-2021 End: 06-30-2021 Patient encounter procedure 06/30/2021 Lab Encounter Clinical Pathology/Laboratory Medicine Jessika Rosales III, MD [address] [place], [place] [address] [address] [place] [id number] [facility] at [facility] Start: 06-19-2021 Potassium [Moles/volume] in Serum or Plasma POTASSIUM [facility] Start: 05-23-2021 Tetanus vaccination [facility] Start: 04-21-2021 COVID-19 VACCINE (4 - Booster for Pfizer series) COVID-19 VACCINE (4 - Booster for Pfizer series) [facility] Start: 01-21-2021 Influenza vaccination [facility] Start: 11-18-2020 Colonoscopy COLONOSCOPY [facility] Start: 11-18-2020 Screening for malignant neoplasm of colon COLONOSCOPY [facility] Start: 10-17-2020 COVID-19 VACCINE (3 - Booster for Pfizer series) COVID-19 VACCINE (3 - Booster for Pfizer series) [facility] Start: 05-22-2020 End: 05-22-2020 Office Visit 05/22/2020 Office Visit Orthopedic Surgery Smooth Eason MD [address] [address] [phone] [facility] Start: 04-24-2020 End: 04-24-2020 Office Visit 04/24/2020 Office Visit Orthopedic Surgery Smooth Eason MD [address] [address] [phone] [facility] Start: 03-12-2020 End: 03-12-2020 Office Visit 03/12/2020 Office Visit Sports Medicine Srinivas Hackett IV, MD [address] [address] [phone] [facility] Start: 01-22-2020 Influenza vaccination Sequential Influenza Vaccine (#1) [facility] Start: 01-22-2020 Influenza vaccination given Sequential Influenza Vaccine (#1) [facility] Start: 01-21-2019 Influenza vaccination given SEQUENTIAL INFLUENZA VACCINE (#1) [facility] Start: 06-03-2018 Pneumococcal vaccination Pneumococcal Vaccine Age 65+ (2 of 2 - PCV13) [facility] Start: 04-28-2018 End: 04-28-2018 Ambulatory 04/28/2018 Office Visit Sports Medicine Srinivas Hackett IV, MD [address] [address] [phone] [facility] Start: 01-21-2018 Influenza vaccination SEQUENTIAL INFLUENZA VACCINE (#1) [facility] Start: 04-17-2017 Administration of herpes zoster vaccine Zoster Vaccines (2 of 3) [facility] Start: 03-26-2017 Prostate specific antigen measurement PSA Level [facility] Start: 03-10-2017 Ambulatory 03/10/2017 Office Visit Orthopedic Surgery Smooth Eason MD [address] [address] [phone] [facility] Start: 02-11-2017 Ambulatory 02/11/2017 Treatment Rehabilitation Smooht Eason MD [address] [address] [phone] Fay Tao [facility] Start: 02-09-2017 Ambulatory 02/09/2017 Treatment Smooth Forrest MD [address] [address] [phone] Palomo Sawyer, PT [facility] Start: 02-04-2017 Ambulatory [facility] Start: 02-02-2017 Ambulatory 02/02/2017 Treatment Smooth Forrest MD [address] [address] [phone] Dorys Foster, [facility] Start: 01-21-2017 Influenza vaccination SEQUENTIAL INFLUENZA VACCINE (#1) [facility] Work Phone: Start: 01-21-2017 SEQUENTIAL INFLUENZA VACCINE (#1) SEQUENTIAL INFLUENZA VACCINE (#1) [facility] Work Phone: Start: 01-21-2017 Ambulatory 01/21/2017 Treatment Smooth Forrest MD [address] [address] [phone] Palomo Sawyer, PT [facility] Start: 01-19-2017 Ambulatory 01/19/2017 Treatment Smooth Forrest MD [address] [address] [phone] Fay Tao, [facility] Start: 01-13-2017 Ambulatory 01/13/2017 Office Visit Orthopedic Surgery Smooth Eason MD [address] [address] [phone] [facility] Start: 01-12-2017 Ambulatory 01/12/2017 Treatment Smooth Forrest MD [address] [address] [phone] Genesis Maher [facility] Start: 01-10-2017 Ambulatory [facility] Start: 01-07-2017 Ambulatory 01/07/2017 Treatment Smooth Forrest MD [address] [address] [phone] Fay Tao, [facility] Start: 01-05-2017 Ambulatory [facility] Start: 12-31-2016 Ambulatory 12/31/2016 Treatment Rehabilitation Smooth Eason MD [address] [address] [phone] Fay Tao, [facility] Start: 12-29-2016 Ambulatory 12/29/2016 Treatment Rehabilitation Smooth Eason MD [address] [address] [phone] [facility] Start: 11-28-2016 Fall risk assessment Falls Risk Assessment [facility] Start: 11-28-2016 Pneumococcal vaccination [facility] Start: 11-28-2016 PNEUMOCOCCAL VACCINE AGE 65+ (1 of 2 - PCV13) PNEUMOCOCCAL VACCINE AGE 65+ (1 of 2 - PCV13) [facility] Work Phone: Start: 11-28-2016 Pneumococcal Vaccine: Age 65+ (1 of 1 - PPSV23) Pneumococcal Vaccine: Age 65+ (1 of 1 - PPSV23) [facility] Start: 2011 Zoster vacc, sc ZOSTER VACCINE [facility] Work Phone: Start: 11-28-2001 Screening for malignant neoplasm of colon [facility] Start: 11-28-2001 Zoster vaccine hzv live for subcutaneous use ZOSTER (SHINGLES) VACCINE (1 of 2) [facility] Start: 11-28-2001 ZOSTER VACCINES (1 of 2) ZOSTER VACCINES (1 of 2) [facility] Start: 11-28-1970 Third diphtheria, tetanus and acellular pertussis (DTaP) vaccination TDAP (ADULT) [facility] Start: 11-28-1969 Hepatitis C antibody, confirmatory test Hepatitis C Screening [facility] Start: 11-28-1969 Hepatitis C screening Hepatitis C Screening [facility] Start: 11-28-1969 Tetanus vaccination TETANUS [facility] Start: 1967 COVID-19 Vaccine (1 of 2) COVID-19 Vaccine (1 of 2) [facility] Start: 1963 Adolescent depression screening assessment Depression Screening (PHQ9) [facility] Start: 1963 Depression screening using PHQ-9 (Patient Health Questionnaire 9) score Depression Screening (PHQ9) [facility] Start: 11-28-1954 History and physical examination, annual for health maintenance Wellness Visit [facility] Start: 1951 Colonoscopy COLONOSCOPY [facility] Work Phone: Start: 1951 Depression screening using PHQ-9 (Patient Health Questionnaire 9) score Depression Screening (PHQ9) [facility] Start: 1951 Fall risk assessment Falls Risk Assessment [facility] Start: 1951 Hepatitis C antibody, confirmatory test [facility] Start: 1951 Hepatitis C screening HEPATITIS C VIRUS SCREENING [facility] Start: 1951 Screening for malignant neoplasm of colon Colorectal Cancer Screening: Colonoscopy [facility] Start: 1951 Colonoscopy COLONOSCOPY [facility] Work Phone: Start: 1950 End: 1951 HEPATITIS C SCREENING HEPATITIS C SCREENING [facility] Work Phone: Start: 1950 End: 1951 Screening colonoscopy COLONOSCOPY [facility] Work Phone: Start: 1951 End: 1951 TETANUS EVERY 10 YR TETANUS EVERY 10 YR [facility] Work Phone: Start: 1950 End: 1951 Tetanus vaccination [facility] SURG PATH REQUEST [facility] Comment on above: Release Upon Ordering for 1 Occurrences starting 04/05/2023, 1 completed End: 03-29-2018 XR Hip Right 2-3 Views (Routine) XR Hip Right 2-3 Views (Routine) Routine Right hip pain Once for 1 Occurrences starting 03/29/2018 until 03/29/2018 [facility] Comment on above: Once for 1 Occurrences starting 03/29/20 18 until 03/29/2018 XR Hip Right 2-3 Vie ws (Routine) XR Hip Right 2-3 Views (Routine) Routine Right hip pain 03/29/2018 10:37 AM EST [facility] Immunizations Immunization Date Immunization Notes Care Provider Luis gilmore 08-22-2020 SARS-COV-2 (COVID-19 ), Mrna, Lnp-s, Pf, 30 Mcg/0.3 Ml Dose PFIZER Jessika Rosales III, MD Work Phone: [facility] Work Phone: 08-01-2020 SARS-COV-2 (COVID-19 ), Mrna, Lnp-s, Pf, 30 Mcg/0.3 Ml Dose PFIZER Jessika Rosales III, MD Work Phone: [facility] 03-08-2019 influenza virus vaccine, unspecified formulation Karen Shayheber SITECORE DEVELOPER-FREIGHT CLERK Work Phone: [facility] Payers Date Payer Category Payer Medicaid MEDICAID MEDICAI D [id number] 2017-Present [address] [place] [address] [id number] 2017 Medicare MEDICARE MEDICAR E A AND B [id number] 2017-Present [address] [place] [address] [id number] 2016 Medicaid [id number] 2016 Medicaid [id number] .[id number] 2016 Medicaid MEDICAID MEDIC[place] D [place] xxxxxxxxxxxx 2016-Present xxxxxxxxxxxx [id number] .[id number] 2016 Medicare [id number] [id number] 2016 Medicare [id number] .[id number] 2016 Medicare MEDICARE MEDICAR E PART A & B xxxxxxxxxxx 2016-Present [place] xxxxxxxxxxx [id number] .[id number] 2016 Medicare [id number] 2014 Medicaid [id number] 1950 Unknown [id number] 2.16.840.1.581538.3.579.2. 1950 Unknown [id number] 2.16.840.1.332996.3.579.2. 1950 Unknown [id number] 2.16.840.1.475488.3.579.2. 1950 Unknown [id number] 2.16.840.1.911629.3.579.2. 1950 Unknown [id number] 2.16.840.1.925595.3.579.2. 1950 Unknown [id number] 2.16.840.1.728469.3.579.2. 1950 Unknown [id number] 2.16.840.1.552820.3.579.2. 1950 Unknown [id number] 2.16.840.1.949112.3.579.2. 1950 Unknown [id number] 2.16.840.1.515530.3.579.2. 1950 Unknown [id number] 2.16.840.1.353851.3.579.2. 1950 Unknown [id number] 2.16.840.1.263736.3.579.2. 1950 Unknown [id number] 2.16.840.1.330985.3.579.2.903 1951 Unknown [id number] 2.16.840.1.957803.3.579.2.594 1951 Unknown [id number] 2.16.840.1.538285.3.579.2.594 1951 Unknown [id number] 2.16.840.1.948142.3.579.2.594 1951 Unknown [id number] 2.16.840.1.483306.3.579.2.594 1951 Unknown [id number] 2.16.840.1.649287.3.579.2.594 1951 Unknown [id number] 2.16.840.1.968319.3.579.2.594 1951 Unknown [id number] 2.16.840.1.829366.3.579.2.594 1951 Unknown [id number] 2.16.840.1.105224.3.579.2.594 1951 Unknown [id number] 2.16.840.1.418899.3.579.2.594 1951 Unknown [id number] 2.16.840.1.347514.3.579.2.594 1951 Unknown [id number] 2.16.840.1.236908.3.579.2.902 1951 Unknown [id number] 2.16.840.1.972639.3.579.2.902 Social History Date Type Detail Facility Start: 02-02-2017 End: 01-17-2023 Tobacco smoking status LAIS Never smoker [facility] Start: 1950 Sex Assigned At Not on file [facility] Work Phone: Start: 02-13-2020 End: 01-17-2023 Tobacco use and exposure Never used [facility] Start: 02-13-2020 End: 05-02-2023 Alcohol intake Current non-drinker of alcohol (finding) [facility] Start: 06-14-2022 End: 06-24-2022 Exposure to SARS-CoV-2 (event) Not sure [facility] Start: 12-30-2020 End: 08-16-2023 Alcohol intake [facility] Start: 06-12-2022 End: 06-22-2022 Exposure to SARS-CoV-2 (event) Unable to assess [facility] Start: 01-17-2023 End: 08-16-2023 Tobacco use panel [facility] Adolescent depressio n screening assessment 0 [facility] Gender identity Identifies as ma le gender (finding) [facility] Goals Date Patient Goal Desired Activity /State Personal health goal Comment on above: Formatting of this n ote might be different from the original. Back pain 04/09/22 STG 4-6 visits 1. Improve lumbar active range of motion by greater than or equal to 5-10 degrees each limited, painful direction in order for patient to get in and out of a chair without difficulty. 2. Patient will demonstrate current home stretches and strengthening to manage pain 1-2 levels. LTG by discharge 1. Improve Bilateral lower extremity use in order for patient to lift or carry their groceries with little proper body mechanics. 2. Patient will decrease Oswestry score to improve quality of life and tolerate his usual daily activities with little difficulty. 3. 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 05/10/22 STG Met Met LTG Progressing Progress with Oswestry, pt can stand and sit abotu 20 min before back feels fatigue Can only sit about 20 min without Lumbar support Comment on above: Formatting of this n ote might be different from the original. Back pain 04/09/22 STG 4-6 visits 1. Improve lumbar active range of motion by greater than or equal to 5-10 degrees each limited, painful direction in order for patient to get in and out of a chair without difficulty. 2. Patient will demonstrate current home stretches and strengthening to manage pain 1-2 levels. LTG by discharge 1. Improve Bilateral lower extremity use in order for patient to lift or carry their groceries with little proper body mechanics. 2. Patient will decrease Oswestry score to improve quality of life and tolerate his usual daily activities with little difficulty. 3. 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 05/10/22 STG Met Met LTG Progressing Progress with Oswestry, pt can stand and sit abotu 20 min before back feels fatigue Can only sit about 20 min without Lumbar support Clinical Notes 09-17-2020 to 08-16-2023 Kira Mejia [facility], SITECORE DEVELOPER-FREIGHT CLERK - 08/16/2023 3:20 PM EDTJ Kyle Rosales III, MD - 08/16/2023 3:20 PM EDTPatient InstructionsJ Kyle Rosales III, MD - 05/02/2023 3:20 PM Vinod Parikh MD, PhD - 04/05/2023 1:00 PM EST Note Date & Type Note Facility 08-16-2023 History of Present illness Narrative Reason for visit: Shaq Last has a history of treated prostate cancer. Summary of History: Shaq Last is a 72 y.o. male who presents for medical oncology consultation. He first presented with an elevated PSA and prostatitis in 2013. In April 2015 his PSA was found to be 11.77 ng/ml, as well as having an abnormal BETTY. He underwent a TRUS prostate biopsy on 06/05/15 that showed high volume (40-80% of the tissue sample) GS 7 prostate with almost every core positive for cancer. He had a robotic prostatectomy + PLND on 07/30/15. This pathology revealed 1 of 23 positive lymph nodes and 4+3=7 to 92% of the tissue. There was Microscopic invasion of bladder neck invasion and seminal vesicle muscle wall invasion. He was considered to have grossly positive margins, pT3nN1. His first 3 month PSA was elevated at 0.16ng/ml. He has seen Dr. Nishant Salas for consideration of salvage EBRT and has decided to proceed. He started oral Casodex 09/05/2015 and stopped after 2 weeks. He also was started on Eligard by Dr. García and received his first injection 09/11/2015. Salvage radiation treatment completed 12/2015. ADT completed 02/2016 (final Eligard injection 11/2015). He had an excision of left gluteus lipoma with Dr. Philip in Fall 2015. No complications and healed well. Interim history: Mr. Last presents today alone for scheduled follow up. Since his last visit, he has done well overall and denies symptoms of disease progression. In April, had to go to ED for flu A but did not have to be admitted. Energy and appetite are good. No hematuria or hematochezia. Denies any urinary frequency or dysuria. Denies any recent fever or chills. PSA History: 08/16/2023 0.18 OFF 05/02/2023 0.24 OFF 01/17/2023 0.20 OFF 11/09/2022 0.15 OFF 09/27/2022 0.11 OFF 06/22/2022 0.15 03/22/2022 0.09 OFF 06/30/2021 0.08 12/30/2020 <0.06 OFF Test 443 06/19/2020 0.06 OFF 11/19/2019 <0.06 OFF 09/19/2018 <0.04 OFF 03/20/2018 0.04 OFF 09/05/2017 <0.04 OFF Test 412 02/24/2017 <0.04 OFF Test 218 10/11/2016 <0.04 OFF Test 221 06/21/2016 <0.04 OFF Test 64 03/22/2016 <0.04 Completes salvage ADT Test 23 01/07/2016 Completed salvage radiation 12/08/2015 0.02 Eligard 22.5mg 09/11/2015 Eligard 22.5mg / Casodex stopped 09/19/2015 09/05/2015 0.16 Casodex started 07/30/2015 RPR, G 7 pT3b pN1 05/09/2015 11.77 PMHx, surg hx, med list, and allergy list reviewed Objective Review of Systems Constitutional: Negative for fever and unexpected weight change. Respiratory: Negative for shortness of breath. Cardiovascular: Negative for chest pain. Gastrointestinal: Negative for abdominal pain, blood in stool, nausea and vomiting. Genitourinary: Negative for hematuria. Musculoskeletal: Negative for back pain and neck pain. Neurological: Negative for headaches. Hematological: Does not bruise/bleed easily. All other systems reviewed and are negative. Vitals: Blood pressure 147/67, pulse 77, temperature 97.5 F (36.4 C), resp. rate 16, height 1.626 m (5' 4 ), weight 62.7 kg (138 lb 3.2 oz), SpO2 99%. Physical Exam Constitutional: General: He is not in acute distress. Appearance: He is not diaphoretic. HENT: Head: Normocephalic and atraumatic. Mouth/Throat: Pharynx: No oropharyngeal exudate. Eyes: General: No scleral icterus. Right eye: No discharge. Left eye: No discharge. Conjunctiva/sclera: Conjunctivae normal. Cardiovascular: Rate and Rhythm: Normal rate and regular rhythm. Heart sounds: Normal heart sounds. No murmur heard. Pulmonary: Effort: Pulmonary effort is normal. No respiratory distress. Breath sounds: Normal breath sounds. No wheezing or rales. Abdominal: General: Bowel sounds are normal. There is no distension. Palpations: Abdomen is soft. There is no mass. Tenderness: There is no abdominal tenderness. Musculoskeletal: General: No tenderness. Normal range of motion. Cervical back: Normal range of motion and neck supple. Lymphadenopathy: Cervical: No cervical adenopathy. Skin: General: Skin is warm and dry. Coloration: Skin is not pale. Findings: No erythema or rash. Neurological: Mental Status: He is alert and oriented to person, place, and time. Neurological Exam Mental Status Alert. Oriented to person, place, and time. Lab Results Component Value Date PSA 0.24 05/02/2023 PSA 0.20 01/17/2023 PSA 0.15 11/09/2022 Lab Results Component Value Date TESTOSTERONE 402 09/27/2022 Lab Results Component Value Date WBC 4.69 08/16/2023 HGB 14.1 08/16/2023 HCT 41.7 08/16/2023 PLATELET 262 08/16/2023 MCV 92.1 08/16/2023 Lab Results Component Value Date SODIUM 138 01/17/2023 POTASSIUM 4.0 01/17/2023 CHLORIDE 102 01/17/2023 CO2 30 01/17/2023 BUN 18 01/17/2023 CREATSERUM 0.72 01/17/2023 GLUCOSE 104 (H) 06/22/2022 Lab Results Component Value Date ALT 13 01/17/2023 AST 17 01/17/2023 ALKPHOS 74 01/17/2023 BILITOTAL 0.3 01/17/2023 BILIDIRECT 0.1 03/22/2022 No results found for: LDH Assessment and Plan: This is a 72 y.o. male s/p RPR 07/30/2015 G 4+3, pT3bN1 with residual PSA 0.16ng/ml. Has decided to proceed with salvage combined therapy with AA and EBRT. Started AA with Dr. García in August 2015. Has seen Dr Nishant Deleon and completed EBRT 12/2015. Completed treatment with single agent Eligard (complaints of fatigue with the induction Casodex) in February 2016. On surveillance since with a slowly rising PSA since 06/2021. Prostate cancer. PSA failure s/p radical prostatectomy and salvage XRT/short course ADT - Clinically doing well. PSA stable, 0.18 ng/mL over 7 years after salvage XRT. - Continue close monitoring. - RTC in 3 months with labs prior ( [facility] [facility]). To note will plan to perform PSMA PET scan when PSA 0.50 ng/mL or higher. Survivorship: He previously declined survivorship referral. LEWIS Rasmussen Attending addendum I saw and evaluated the patient with the advanced practice provider. I provided a substantive portion of the care for this patient. I personally performed all aspects of the medical decision making for this encounter. I have reviewed and verified this documentation and it accurately reflects our care. The nurse practitioner and I have spoken with the patient and provided written and verbal instructions for the patient. Mr. Last has a low and stable PSA nearly 7 years after salvage radiation/ADT. He denies symptoms of progressive disease. We will continue to follow him and the PSA. I am planning on ordering PSMA-PET imaging when the PSA is 0.5ng/dl. (considering referral to Rad Onc for SRT to oligo metastatic disease if seen). RTC 3 months. documented in this encounter [facility] 08-16-2023 Instructions LEWIS Rasmussen - 08/16/2023 3:20 PM EDT RTC ([facility]) in 3 months with labs prior ([facility] [facility] draw) documented in this encounter [facility] 05-02-2023 History of Present illness Narrative Reason for visit: Shaq Last has a history of treated prostate cancer. Summary of History: Shaq Last is a 72 y.o. male who presents for medical oncology consultation. He first presented with an elevated PSA and prostatitis in 2013. In April 2015 his PSA was found to be 11.77 ng/ml, as well as having an abnormal BETTY. He underwent a TRUS prostate biopsy on 06/05/15 that showed high volume (40-80% of the tissue sample) GS 7 prostate with almost every core positive for cancer. He had a robotic prostatectomy + PLND on 07/30/15. This pathology revealed 1 of 23 positive lymph nodes and 4+3=7 to 92% of the tissue. There was Microscopic invasion of bladder neck invasion and seminal vesicle muscle wall invasion. He was considered to have grossly positive margins, pT3nN1. His first 3 month PSA was elevated at 0.16ng/ml. He has seen Dr. Nishant Salas for consideration of salvage EBRT and has decided to proceed. He started oral Casodex 09/05/2015 and stopped after 2 weeks. He also was started on Eligard by Dr. García and received his first injection 09/11/2015. Salvage radiation treatment completed 12/2015. ADT completed 02/2016 (final Eligard injection 11/2015). He had an excision of left gluteus lipoma with Dr. Philip in Fall 2015. No complications and healed well. Interim history: Mr. Last presents today alone for scheduled follow up. Since his last visit, he has done well overall and denies symptoms of disease progression. No new medications/ED visits/hospitalizations/falls. PSA History: 05/02/2023 0.24 OFF 01/17/2023 0.20 OFF 11/09/2022 0.15 OFF 09/27/2022 0.11 OFF 06/22/2022 0.15 03/22/2022 0.09 OFF 06/30/2021 0.08 12/30/2020 <0.06 OFF Test 443 06/19/2020 0.06 OFF 11/19/2019 <0.06 OFF 09/19/2018 <0.04 OFF 03/20/2018 0.04 OFF 09/05/2017 <0.04 OFF Test 412 02/24/2017 <0.04 OFF Test 218 10/11/2016 <0.04 OFF Test 221 06/21/2016 <0.04 OFF Test 64 03/22/2016 <0.04 Completes salvage ADT Test 23 01/07/2016 Completed salvage radiation 12/08/2015 0.02 Eligard 22.5mg 09/11/2015 Eligard 22.5mg / Casodex stopped 09/19/2015 09/05/2015 0.16 Casodex started 07/30/2015 RPR, G 7 pT3b pN1 05/09/2015 11.77 PMHx, surg hx, med list, and allergy list reviewed Objective Review of Systems Constitutional: Negative for fever and unexpected weight change. Respiratory: Negative for shortness of breath. Cardiovascular: Negative for chest pain. Gastrointestinal: Negative for abdominal pain, blood in stool, nausea and vomiting. Genitourinary: Negative for hematuria. Musculoskeletal: Negative for back pain and neck pain. Neurological: Negative for headaches. Hematological: Does not bruise/bleed easily. All other systems reviewed and are negative. Vitals: Blood pressure 141/82, pulse 62, temperature 97.5 F (36.4 C), resp. rate 16, height 1.651 m (5' 5 ), weight 62.6 kg (138 lb 1.6 oz), SpO2 95 %. Physical Exam Constitutional: General: He is not in acute distress. Appearance: He is not diaphoretic. HENT: Head: Normocephalic and atraumatic. Mouth/Throat: Pharynx: No oropharyngeal exudate. Eyes: General: No scleral icterus. Right eye: No discharge. Left eye: No discharge. Conjunctiva/sclera: Conjunctivae normal. Cardiovascular: Rate and Rhythm: Normal rate and regular rhythm. Heart sounds: Normal heart sounds. No murmur heard. Pulmonary: Effort: Pulmonary effort is normal. No respiratory distress. Breath sounds: Normal breath sounds. No wheezing or rales. Abdominal: General: Bowel sounds are normal. There is no distension. Palpations: Abdomen is soft. There is no mass. Tenderness: There is no abdominal tenderness. Musculoskeletal: General: No tenderness. Normal range of motion. Cervical back: Normal range of motion and neck supple. Lymphadenopathy: Cervical: No cervical adenopathy. Skin: General: Skin is warm and dry. Coloration: Skin is not pale. Findings: No erythema or rash. Neurological: Mental Status: He is alert and oriented to person, place, and time. Neurological Exam Mental Status Alert. Oriented to person, place, and time. Lab Results Component Value Date PSA 0.24 05/02/2023 PSA 0.20 01/17/2023 PSA 0.15 11/09/2022 Lab Results Component Value Date TESTOSTERONE 402 09/27/2022 Lab Results Component Value Date WBC 4.29 01/17/2023 HGB 13.4 01/17/2023 HCT 37.9 (L) 01/17/2023 PLATELET 234 01/17/2023 MCV 90.9 01/17/2023 Lab Results Component Value Date SODIUM 138 01/17/2023 POTASSIUM 4.0 01/17/2023 CHLORIDE 102 01/17/2023 CO2 30 01/17/2023 BUN 18 01/17/2023 CREATSERUM 0.72 01/17/2023 GLUCOSE 104 (H) 06/22/2022 Lab Results Component Value Date ALT 13 01/17/2023 AST 17 01/17/2023 ALKPHOS 74 01/17/2023 BILITOTAL 0.3 01/17/2023 BILIDIRECT 0.1 03/22/2022 No results found for: LDH Assessment and Plan: This is a 72 y.o. male s/p RPR 07/30/2015 G 4+3, pT3bN1 with residual PSA 0.16ng/ml. Has decided to proceed with salvage combined therapy with AA and EBRT. Started AA with Dr. García in August 2015. Has seen Dr Nishant Deleon and completed EBRT 12/2015. Completed treatment with single agent Eligard (complaints of fatigue with the induction Casodex) in February 2016. On surveillance since with a slowly rising PSA since 06/2021. Prostate cancer. PSA failure s/p radical prostatectomy and salvage XRT/short course ADT - Clinically doing well. PSA stable, 0.24 ng/mL over 7 years after salvage XRT. - Continue close monitoring. - RTC in 3 months with labs prior (MD or [employer] [employer]). To note will plan to perform PSMA PET scan when PSA 0.50 ng/mL or higher. Survivorship: He previously declined survivorship referral. documented in this encounter [facility] 04-05-2023 History of Present illness Narrative 1330: Vitals are completed. Patient IV is removed. Patient denies assistance with dressing. Dr Parikh and RN provided and reviewed discharge instructions to patient. Verbalized understanding. All questions answered. Patient ambulated off ASC unit independently with Staff to meet feeder driver at patient pickup area. documented in this encounter [facility] 04-05-2023 History and physical note ENDOSCOPIC PREPROCEDURE HISTORY AND PHYSICAL HISTORY OF PRESENT ILLNESS: Shaq Last is a 72 y.o. male seen in the pre-procedure area at [facility]. 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 SURGICAL HISTORY: Past Surgical History: Procedure Laterality Date EGD DIAGNOSTIC N/A 04/16/2019 Laterality: N/A; Surgeon: Daniel Jimenez MD; Location: [facility] [place] MS CYSTOURETHROSCOPY FOR DIAGNOSIS 12/07/2018 MS CYSTOURETHROSCOPY FOR DIAGNOSIS 11/24/2017 RESECTION LESION SOFT TISSUE HIP PELVIS RADICAL Left 02/12/2016 Laterality: Left; Surgeon: Sunday Philip MD; [facility] COLONOSCOPY FOR COLORECTAL CANCER SCREENING HIGH RISK INDIVIDUAL N/A 11/19/2015 Laterality: N/A; Surgeon: Daniel Jimenez MD; Location: [facility] PROSTATECTOMY RETROPUBIC RADICAL ROBOTIC N/A 07/30/2015 Laterality: N/A; Surgeon: Cecil García MD; Location: [facility] MA[facility] OR LYMPHADENECTOMY PELVIC TOTAL ROBOTIC N/A 07/30/2015 Laterality: N/A; Surgeon: Cecil García MD; Location: [facility] MAIN OR BX PROSTATE NEEDLE OR PUNCH 05/2015 EXCISION GANGLION CYST Right 2002 wrist CYST INCISION AND DRAINAGE Left OTHER SURGICAL goal markers placed for prostate cancer treatment MEDICATIONS: Current Outpatient Medications Medication Instructions bismuth subsalicylate 262 MG/15ML Suspension 30 mL, Oral, EVERY 6 HOURS NEEDED Cyclobenzaprine (FLEXERIL) 10 mg, Oral, 3 TIMES DAILY NEEDED hydroCHLOROthiazide (MICROZIDE) 12.5 mg, Oral, DAILY Lidocaine 5 % ointment Ketamine 5%, baclofen 2%, diclofenac 3%, gabapentin 6%, lidocaine 2%, prilocaine 2% Apply 1-2gm topically to affected area three to four times a day as needed Lisinopril (PRINIVIL) 40 mg, Oral, DAILY Multiple Vitamin (MULTI-VITAMIN DAILY PO) No dose, route, or frequency recorded. 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 omeprazole (PRILOSEC) 20 mg, Oral, DAILY Current Outpatient Medications: bismuth subsalicylate 262 MG/15ML Suspension, Take 30 mL by mouth every 6 hours as needed., Disp: , Rfl: cyclobenzaprine 10 MG tablet, Take 1 tablet by mouth 3 times daily as needed for Muscle spasms. (Patient not taking: Reported on 09/27/2022), Disp: 30 tablet, Rfl: 0 hydrochlorothiazide 12.5 MG Cap, Take 1 capsule by mouth daily., Disp: , Rfl: Lidocaine 5 % ointment, Ketamine 5%, baclofen 2%, diclofenac 3%, gabapentin 6%, lidocaine 2%, prilocaine 2% Apply 1-2gm topically to affected area three to four times a day as needed (Patient not taking: Reported on 09/27/2022), Disp: 240 g, Rfl: 3 lisinopril 20 MG Tab, Take 2 tablets by mouth daily., Disp: , Rfl: Multiple Vitamin (MULTI-VITAMIN DAILY PO), , Disp: , Rfl: naproxen 500 MG tablet, Take 1 tablet by mouth 2 times daily with meals for 14 days. 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 (Patient not taking: Reported on 09/27/2022), Disp: 30 capsule, Rfl: 0 Current Facility-Administered Medications: Lactated ringers IV solution, , Intravenous, Continuous, Natalie Parikh MD, PhD lidocaine 1% buffered in sodium bicarbonate 1-8.4 % injection SOSY 1 mL, 1 mL, Intradermal, PRN, Natalie Parikh MD, PhD simethicone undiluted 40 mg/0.6 mL irrigation 1 Application, 1 Application, Irrigation, As directed PRN, Natalie Parikh MD, PhD, 1 Application at 04/05/23 1212 Facility-Administered Medications Ordered in Other Encounters: acetaminophen (TYLENOL) tablet 650 mg, 650 mg, Oral, Once (Outpt Clinic), Cecil García MD lidocaine (XYLOCAINE) 2 % urojet 20 mL, 20 mL, Urethral, Once (Outpt Clinic), Emanuel Borges MD ALLERGIES: Allergies Allergen Reactions Bactrim [Sulfamethoxazole-Trimethoprim] Myalgia and Anxiety FOCUSED REVIEW OF SYSTEMS: Negative for nausea, vomiting, abdominal pain and diarrhea VITAL SIGNS: Vitals: 04/05/23 1223 Weight: 62 kg (136 lb 9.6 oz) Height: 1.651 m (5' 5 ) PREPROCEDURE PHYSICAL EXAM: AIRWAY: normal, Mallampati: Class II (complete visualization of the uvula) HEART: Regular and No murmur PULMONARY: Lungs clear to auscultation bilaterally ABDOMEN: Soft, nontender, nondistended ASSESSMENT: Shaq Last is a 72 y.o. male is ready for the planned procedure. ASA Class: ASA 2 - Patient with mild systemic disease with no functional limitations PLAN: Will plan to proceed with DIAGNOSTIC COLONOSCOPY using Monitored Anesthesia Care. Natalie Parikh MD, PhD [facility] Work Phone: 04-05-2023 History and physical note ENDOSCOPIC PREPROCEDURE HISTORY AND PHYSICAL HISTORY OF PRESENT ILLNESS: Shaq Last is a 72 y.o. male seen in the pre-procedure area at [facility]. 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 SURGICAL HISTORY: Past Surgical History: Procedure Laterality Date EGD DIAGNOSTIC N/A 04/16/2019 Laterality: N/A; Surgeon: Daniel Jimenez MD; Location: [facility] [place] MS CYSTOURETHROSCOPY FOR DIAGNOSIS 12/07/2018 MS CYSTOURETHROSCOPY FOR DIAGNOSIS 11/24/2017 RESECTION LESION SOFT TISSUE HIP PELVIS RADICAL Left 02/12/2016 Laterality: Left; Surgeon: Sunday Philip MD; Location: [facility] MA[facility] OR COLONOSCOPY FOR COLORECTAL CANCER SCREENING HIGH RISK INDIVIDUAL N/A 11/19/2015 Laterality: N/A; Surgeon: Daniel Jimenez MD; [facility] PROSTATECTOMY RETROPUBIC RADICAL ROBOTIC N/A 07/30/2015 Laterality: N/A; Surgeon: Cecil García MD; [facility] MA[facility] OR LYMPHADENECTOMY PELVIC TOTAL ROBOTIC N/A 07/30/2015 Laterality: N/A; Surgeon: Cecil García MD; Location: [facility] MAIN OR BX PROSTATE NEEDLE OR PUNCH 05/2015 EXCISION GANGLION CYST Right 2002 wrist CYST INCISION AND DRAINAGE Left x2 OTHER SURGICAL goal markers placed for prostate cancer treatment MEDICATIONS: Current Outpatient Medications Medication Instructions bismuth subsalicylate 262 MG/15ML Suspension 30 mL, Oral, EVERY 6 HOURS NEEDED Cyclobenzaprine (FLEXERIL) 10 mg, Oral, 3 TIMES DAILY NEEDED hydroCHLOROthiazide (MICROZIDE) 12.5 mg, Oral, DAILY Lidocaine 5 % ointment Ketamine 5%, baclofen 2%, diclofenac 3%, gabapentin 6%, lidocaine 2%, prilocaine 2% Apply 1-2gm topically to affected area three to four times a day as needed Lisinopril (PRINIVIL) 40 mg, Oral, DAILY Multiple Vitamin (MULTI-VITAMIN DAILY PO) No dose, route, or frequency recorded. 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 omeprazole (PRILOSEC) 20 mg, Oral, DAILY Current Outpatient Medications: bismuth subsalicylate 262 MG/15ML Suspension, Take 30 mL by mouth every 6 hours as needed., Disp: , Rfl: cyclobenzaprine 10 MG tablet, Take 1 tablet by mouth 3 times daily as needed for Muscle spasms. (Patient not taking: Reported on 09/27/2022), Disp: 30 tablet, Rfl: 0 hydrochlorothiazide 12.5 MG Cap, Take 1 capsule by mouth daily., Disp: , Rfl: Lidocaine 5 % ointment, Ketamine 5%, baclofen 2%, diclofenac 3%, gabapentin 6%, lidocaine 2%, prilocaine 2% Apply 1-2gm topically to affected area three to four times a day as needed (Patient not taking: Reported on 09/27/2022), Disp: 240 g, Rfl: 3 lisinopril 20 MG Tab, Take 2 tablets by mouth daily., Disp: , Rfl: Multiple Vitamin (MULTI-VITAMIN DAILY PO), , Disp: , Rfl: naproxen 500 MG tablet, Take 1 tablet by mouth 2 times daily with meals for 14 days. 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 (Patient not taking: Reported on 09/27/2022), Disp: 30 capsule, Rfl: 0 Current Facility-Administered Medications: Lactated ringers IV solution, , Intravenous, Continuous, Natalie Parikh MD, PhD lidocaine 1% buffered in sodium bicarbonate 1-8.4 % injection SOSY 1 mL, 1 mL, Intradermal, PRN, Natalei Parikh MD, PhD simethicone undiluted 40 mg/0.6 mL irrigation 1 Application, 1 Application, Irrigation, As directed PRN, Natalie Parikh MD, PhD, 1 Application at 04/05/23 1212 Facility-Administered Medications Ordered in Other Encounters: acetaminophen (TYLENOL) tablet 650 mg, 650 mg, Oral, Once (Outpt Clinic), Cecil García MD lidocaine (XYLOCAINE) 2 % urojet 20 mL, 20 mL, Urethral, Once (Outpt Clinic), Emanuel Borges MD ALLERGIES: Allergies Allergen Reactions Bactrim [Sulfamethoxazole-Trimethoprim] Myalgia and Anxiety FOCUSED REVIEW OF SYSTEMS: Negative for nausea, vomiting, abdominal pain and diarrhea VITAL SIGNS: Vitals: 04/05/23 1223 Weight: 62 kg (136 lb 9.6 oz) Height: 1.651 m (5' 5 ) PREPROCEDURE PHYSICAL EXAM: AIRWAY: normal, Mallampati: Class II (complete visualization of the uvula) HEART: Regular and No murmur PULMONARY: Lungs clear to auscultation bilaterally ABDOMEN: Soft, nontender, nondistended ASSESSMENT: Shaq Last is a 72 y.o. male is ready for the planned procedure. ASA Class: ASA 2 - Patient with mild systemic disease with no functional limitations PLAN: Will plan to proceed with DIAGNOSTIC COLONOSCOPY using Monitored Anesthesia Care. Natalie Parikh MD, PhD documented in this encounter [facility] 04-05-2023 Nurse Note Sedation, vital signs, airway, and monitoring per anesthesia. [facility] 04-05-2023 Miscellaneous Notes Sedation, vital signs, airway, and monitoring per anesthesia. documented in this encounter [facility] 01-17-2023 History of Present illness Narrative Reason for visit: Shaq Last has a history of treated prostate cancer. Summary of History: Shaq Last is a 72 y.o. male who presents for medical oncology consultation. He first presented with an elevated PSA and prostatitis in 2013. In April 2015 his PSA was found to be 11.77 ng/ml, as well as having an abnormal BETTY. He underwent a TRUS prostate biopsy on 06/05/15 that showed high volume (40-80% of the tissue sample) GS 7 prostate with almost every core positive for cancer. He had a robotic prostatectomy + PLND on 07/30/15. This pathology revealed 1 of 23 positive lymph nodes and 4+3=7 to 92% of the tissue. There was Microscopic invasion of bladder neck invasion and seminal vesicle muscle wall invasion. He was considered to have grossly positive margins, pT3nN1. His first 3 month PSA was elevated at 0.16ng/ml. He has seen Dr. Nishant Salas for consideration of salvage EBRT and has decided to proceed. He started oral Casodex 09/05/2015 and stopped after 2 weeks. He also was started on Eligard by Dr. García and received his first injection 09/11/2015. Salvage radiation treatment completed 12/2015. ADT completed 02/2016 (final Eligard injection 11/2015). He had an excision of left gluteus lipoma with Dr. Philip in Fall 2015. No complications and healed well. Interim history: Mr. Last presents today alone for scheduled follow up. Since his last visit, he denies any medical changes, other than he had a sore throat and was found to have COID. He has no residual side effects . He denies having any CP or SOB. He denies having any hematuria or blood in his stool. He denies having any pain. No GI complaints. Has a screening colonoscopy in March. PSA History: 01/17/2023 0.20 OFF 11/09/2022 0.15 OFF 09/27/2022 0.11 OFF 06/22/2022 0.15 03/22/2022 0.09 OFF 06/30/2021 0.08 12/30/2020 <0.06 OFF Test 443 06/19/2020 0.06 OFF 11/19/2019 <0.06 OFF 09/19/2018 <0.04 OFF 03/20/2018 0.04 OFF 09/05/2017 <0.04 OFF Test 412 02/24/2017 <0.04 OFF Test 218 10/11/2016 <0.04 OFF Test 221 06/21/2016 <0.04 OFF Test 64 03/22/2016 <0.04 Completes salvage ADT Test 23 01/07/2016 Completed salvage radiation 12/08/2015 0.02 Eligard 22.5mg 09/11/2015 Eligard 22.5mg / Casodex stopped 09/19/2015 09/05/2015 0.16 Casodex started 07/30/2015 RPR, G 7 pT3b pN1 05/09/2015 11.77 PMHx, surg hx, med list, and allergy list reviewed Review of Systems: A complete ROS was performed and all the pertinent findings were mentioned in HPI/Interval History. The rest of ROS was otherwise negative. Physical Exam: Vitals: Blood pressure 156/80, pulse 68, temperature 97.8 F (36.6 C), temperature source Oral, resp. rate 20, height 1.626 m (5' 4 ), weight 61.8 kg (136 lb 3.2 oz), SpO2 98 %. Wt Readings from Last 3 Encounters: 01/17/23 61.8 kg (136 lb 3.2 oz) 09/27/22 63.1 kg (139 lb 3.2 oz) 06/24/22 61.2 kg (135 lb) Constitutional: He is alert and oriented to person, place, and time. NAD. HENT: Head: Normocephalic and atraumatic. Eyes: Conjunctivae are normal. No scleral icterus. Neck: Normal range of motion. Neck supple. Cardiovascular: Normal rate, regular rhythm and normal heart sounds. No murmur heard. Pulmonary/Chest: Effort normal and breath sounds normal. No respiratory distress. He has no wheezes. He has no rales. Abdominal: Soft. He exhibits no distension and no mass. There is no tenderness. Lymphadenopathy: He has no cervical or supraclavicular adenopathy. Skin: Skin is warm and dry. No rash noted. He is not diaphoretic. No erythema. No pallor. Psychiatric: Affect normal. Lab Review: Lab Results Component Value Date WBC 4.29 01/17/2023 WBC 4.45 09/19/2018 MCV 90.9 01/17/2023 MCV 92.9 09/19/2018 lastlabosu(sbans)@ Lab Results Component Value Date SODIUM 138 01/17/2023 SODIUM 140 09/19/2018 POTASSIUM 4.0 01/17/2023 POTASSIUM 3.8 09/19/2018 CHLORIDE 102 01/17/2023 CHLORIDE 102 09/19/2018 CO2 30 01/17/2023 CO2 31 (H) 09/19/2018 BUN 18 01/17/2023 BUN 24 (H) 09/19/2018 Lab Results Component Value Date ALT 13 01/17/2023 ALT 13 09/19/2018 AST 17 01/17/2023 AST 16 09/19/2018 BILIRUBIN neg 01/02/2014 Lab Results Component Value Date PSA 0.15 11/09/2022 PSA <0.04 09/19/2018 PSA 12.7 (H) 05/09/2015 PSAFREE 2.1 05/09/2015 Lab Results Component Value Date TESTOSTERONE 402 09/27/2022 TESTOSTERONE 467 03/20/2018 Assessment and Plan: Intermediate risk prostate cancer, s/p RPR 07/30/2015 G 4+3, pT3bN1 with residual PSA 0.16ng/ml. Has decided to proceed with salvage combined therapy with AA and EBRT. Started AA with Dr. García in August 2015. Has seen Dr Nishant Deleon and completed EBRT 12/2015. Completed treatment with single agent Eligard (complaints of fatigue with the induction Casodex) in February 2016. On surveillance since with a slowly rising PSA since 06/2021. - Clinically doing well. PSA stable, 0.20 ng/mL. Continue close monitoring. - RTC in 3 months with labs prior (MD or [employer]). To note will plan to perform PSMA PET scan when PSA 0.50 ng/mL or higher. Survivorship: He previously declined survivorship referral. [facility] Attending addendum I saw and evaluated the patient with the advanced practice provider. I provided a substantive portion of the care for this patient. I personally performed all aspects of the medical decision making for this encounter. I have reviewed and verified this documentation and it accurately reflects our care. The nurse practitioner and I have spoken with the patient and provided written and verbal instructions for the patient. Mr. Last has a low and stable PSA ~7 years after salvage radiation/ADT. He denies symptoms of progressive disease. We will continue to follow the PSA. I am planning on ordering PSMA-PET imaging when the PSA is 0.5ng/dl. RTC 3 months. documented in this encounter [facility] 01-17-2023 Instructions Crystal Lyon RN - 01/17/2023 3:40 PM EDT Lab Results Component Value Date SODIUM 138 01/17/2023 POTASSIUM 4.0 01/17/2023 CHLORIDE 102 01/17/2023 CO2 30 01/17/2023 BUN 18 01/17/2023 CREATSERUM 0.72 01/17/2023 GLUCOSE 104 (H) 06/22/2022 CBC Lab Results Component Value Date WBC 4.29 01/17/2023 HGB 13.4 01/17/2023 HCT 37.9 (L) 01/17/2023 PLATELET 234 01/17/2023 MCV 90.9 01/17/2023 EDIF Lab Results Component Value Date RBCDISTRIBU 11.8 01/17/2023 GRNLOCYT 46.3 01/17/2023 LYMPHOCYT 35.9 01/17/2023 MONOCYTELEC 15.9 01/17/2023 EOSINOPHILS 1.4 01/17/2023 BASOPHILS 0.5 01/17/2023 GRNLOCTYABS 2.4 03/22/2016 LYMPHOCYTABS 1.54 01/17/2023 MONOSABSOLU 0.5 03/22/2016 EOSINOPHLABS 0.06 01/17/2023 BASOPHILSABS 0.0 03/22/2016 PLATELET 234 01/17/2023 MPV 9.4 01/17/2023 Lab Results Component Value Date PSA 0.20 01/17/2023 PSA 0.15 11/09/2022 PSA 0.11 09/27/2022 Lab Results Component Value Date SODIUM 138 01/17/2023 POTASSIUM 4.0 01/17/2023 CHLORIDE 102 01/17/2023 CO2 30 01/17/2023 BUN 18 01/17/2023 CREATSERUM 0.72 01/17/2023 documented in this encounter [facility] 09-27-2022 History of Present illness Narrative Reason for visit: Shaq Last has a history of treated prostate cancer. Summary of History: Shaq Last is a 71 y.o. male who presents for medical oncology consultation. He first presented with an elevated PSA and prostatitis in 2013. In April 2015 his PSA was found to be 11.77 ng/ml, as well as having an abnormal BETTY. He underwent a TRUS prostate biopsy on 06/05/15 that showed high volume (40-80% of the tissue sample) GS 7 prostate with almost every core positive for cancer. He had a robotic prostatectomy + PLND on 07/30/15. This pathology revealed 1 of 23 positive lymph nodes and 4+3=7 to 92% of the tissue. There was Microscopic invasion of bladder neck invasion and seminal vesicle muscle wall invasion. He was considered to have grossly positive margins, pT3nN1. His first 3 month PSA was elevated at 0.16ng/ml. He has seen Dr. Nishant Salas for consideration of salvage EBRT and has decided to proceed. He started oral Casodex 09/05/2015 and stopped after 2 weeks. He also was started on Eligard by Dr. García and received his first injection 09/11/2015. Salvage radiation treatment completed 12/2015. ADT completed 02/2016 (final Eligard injection 11/2015). He had an excision of left gluteus lipoma with Dr. Philip in Fall 2015. No complications and healed well. Interim history: Mr. Last presents today alone for scheduled follow up. Since his last visit, he denies any medical changes. He denies having any CP or SOB. He denies having any hematuria or blood in his stool. He denies having any pain. PSA History: 09/27/2022 0.11 OFF 06/22/2022 0.15 03/22/2022 0.09 OFF 06/30/2021 0.08 12/30/2020 <0.06 OFF Test 443 06/19/2020 0.06 OFF 11/19/2019 <0.06 OFF 09/19/2018 <0.04 OFF 03/20/2018 0.04 OFF 09/05/2017 <0.04 OFF Test 412 02/24/2017 <0.04 OFF Test 218 10/11/2016 <0.04 OFF Test 221 06/21/2016 <0.04 OFF Test 64 03/22/2016 <0.04 Completes salvage ADT Test 23 01/07/2016 Completed salvage radiation 12/08/2015 0.02 Eligard 22.5mg 09/11/2015 Eligard 22.5mg / Casodex stopped 09/19/2015 09/05/2015 0.16 Casodex started 07/30/2015 RPR, G 7 pT3b pN1 05/09/2015 11.77 PMHx, surg hx, med list, and allergy list reviewed Review of Systems: A complete ROS was performed and all the pertinent findings were mentioned in HPI/Interval History. The rest of ROS was otherwise negative. Physical Exam: Vitals: Blood pressure 153/72, pulse 67, temperature 97.3 F (36.3 C), temperature source Oral, resp. rate 12, height 1.626 m (5' 4 ), weight 63.1 kg (139 lb 3.2 oz). Wt Readings from Last 3 Encounters: 09/27/22 63.1 kg (139 lb 3.2 oz) 06/24/22 61.2 kg (135 lb) 03/30/22 61.2 kg (135 lb) Constitutional: He is alert and oriented to person, place, and time. NAD. HENT: Head: Normocephalic and atraumatic. Eyes: Conjunctivae are normal. No scleral icterus. Neck: Normal range of motion. Neck supple. Cardiovascular: Normal rate, regular rhythm and normal heart sounds. No murmur heard. Pulmonary/Chest: Effort normal and breath sounds normal. No respiratory distress. He has no wheezes. He has no rales. Abdominal: Soft. He exhibits no distension and no mass. There is no tenderness. Lymphadenopathy: He has no cervical or supraclavicular adenopathy. Skin: Skin is warm and dry. No rash noted. He is not diaphoretic. No erythema. No pallor. Psychiatric: Affect normal. Lab Review: Lab Results Component Value Date WBC 6.35 09/27/2022 WBC 4.45 09/19/2018 MCV 93.7 09/27/2022 MCV 92.9 09/19/2018 lastlabosu(sbans)@ Lab Results Component Value Date SODIUM 138 09/27/2022 SODIUM 140 09/19/2018 POTASSIUM 4.0 09/27/2022 POTASSIUM 3.8 09/19/2018 CHLORIDE 102 09/27/2022 CHLORIDE 102 09/19/2018 CO2 32 (H) 09/27/2022 CO2 31 (H) 09/19/2018 BUN 23 09/27/2022 BUN 24 (H) 09/19/2018 Lab Results Component Value Date ALT 14 09/27/2022 ALT 13 09/19/2018 AST 16 09/27/2022 AST 16 09/19/2018 BILIRUBIN neg 01/02/2014 Lab Results Component Value Date PSA 0.11 09/27/2022 PSA <0.04 09/19/2018 PSA 12.7 (H) 05/09/2015 PSAFREE 2.1 05/09/2015 Lab Results Component Value Date TESTOSTERONE 443 12/30/2020 TESTOSTERONE 467 03/20/2018 Assessment and Plan: Intermediate risk prostate cancer, s/p RPR 07/30/2015 G 4+3, pT3bN1 with residual PSA 0.16ng/ml. Has decided to proceed with salvage combined therapy with AA and EBRT. Started AA with Dr. García in August 2015. Has seen Dr Nishant Deleon and completed EBRT 12/2015. Completed treatment with single agent Eligard (complaints of fatigue with the induction Casodex) in February 2016. - Clinically doing well. PSA stable, 0.11 ng/mL. Continue close monitoring. - PSA only in 6 weeks with RTC in 3 months with labs prior. To note will plan to perform PSMA PET scan when PSA 0.50 ng/mL or higher. Survivorship: He previously declined survivorship referral. LEWIS Churchill Attending addendum I saw and evaluated the patient with the advanced practice provider. I provided a substantive portion of the care for this patient. I personally performed all aspects of the medical decision making for this encounter. I have reviewed and verified this documentation and it accurately reflects our care. The nurse practitioner and I have spoken with the patient and provided written and verbal instructions for the patient. Mr. Last has a low and stable PSA 7 years after salvage radiation/ADT. He denies symptoms of progressive disease. We will continue to follow the PSA. I am planning on ordering PSMA-PET imaging when the PSA is 0.5ng/dl. documented in this encounter [facility] 06-24-2022 History of Present illness Narrative Images from the original note were not included. [facility] HISTORY OF PRESENT ILLNESS Primary care provider: Dr. Julio Cesar Ospina History of Present Illness: Shaq Last is a 71 y.o. male with a past medical history significant for prostate cancer who presents for follow up evaluation of acute on chronic back pain. Last seen 03/30/2022 In the interim, had been doing PT with significant improvement, but then went on a several-hour bike ride 2 weeks ago and all his pain returned. [place] his back was locked up and had difficulty walking. Took Flexeril with improvement. Feels about 75% better now. Now has pain with sitting too long. Now taking about 2 aspirin a day which helps. Pain remains 100% axial, and is 2-3/10 today. No fevers, chills, bowel/bladder retention or incontinence, saddle anesthesia, leg weakness. Treatments: PT Flexeril Aspirin Naproxin Review of Systems: Remainder of ROS was negative or as above and below. (positive if in bold) General/Constitutional: no fevers, night sweats, or unintentional wt loss GI: No new diarrhea or constipation : No new dysuria or incontinence MSK: per HPI Neuro: per HPI Surgical History: Prior Back Surgery: No Social History: Social History Tobacco Use Smoking status: Never Smokeless tobacco: Never Substance Use Topics Alcohol use: No Alcohol/week: 0.0 standard drinks Drug use: No PHYSICAL EXAMINATION Ht 1.626 m (5' 4 ) BMI 23.17 kg/m Smoking Status Never Body mass index is 23.17 kg/m . GENERAL: NAD, good eye contact, well appearing, responds appropriately. RESP: No dyspnea PSYCH: Affect appears normal, mood congruent. Normal lumbar ROM, + facet loading bilaterally, L>R. Neg SLR. Strength, sensation, reflexes intact. Labs/Imaging Reviewed: Images and radiology reports personally reviewed. Diagnostic studies were also reviewed with and explained to patient using their images, reports, diagrams, and/or models. XR L spine 03/22/2022 IMPRESSION: Osteopenia Slight dextroscoliosis Multilevel disc disease, osteophyte formation and facet disease MRI L spine 03/30/2022 IMPRESSION: Multilevel degenerative disc disease in the lumbar spine as detailed above. Mild bilateral neural foraminal narrowing at L4-L5 and L5-S1 due to degenerative endplate osteophytic spurring. No significant spinal canal stenosis in the lumbar spine. Lab Results Component Value Date SODIUM 138 06/22/2022 POTASSIUM 4.0 06/22/2022 CHLORIDE 101 06/22/2022 CO2 30 06/22/2022 BUN 25 06/22/2022 CREATSERUM 0.80 06/22/2022 GLUCOSE 104 (H) 06/22/2022 Lab Results Component Value Date WBC 5.98 06/22/2022 HGB 14.0 06/22/2022 HCT 41.1 06/22/2022 PLATELET 263 06/22/2022 MCV 93.4 06/22/2022 No results found for: SEDRATE No results found for: CRP ASSESSMENT AND PLAN Shaq Last is a 71 y.o. male with a past medical history significant for prostate cancer who presents for follow up evaluation of acute on chronic back pain. ICD-10-CM 1. Chronic bilateral low back pain without sciatica M54.50 G89.29 2. Spondylosis of lumbar region without myelopathy or radiculopathy M47.816 3. Lumbar degenerative disc disease M51.36 4. Lumbar facet arthropathy M47.816 100% axial back pain improved significantly with PT until about 2 weeks ago, when he had exacerbation after several hour bike ride. Now 75% improved from time of exacerbation. Discussed options of continuing PT vs trying MBB for facet-mediated pain if he wasn't happy with where he was prior to his exacerbation, and he would like to continue PT. Also discussed options of compound topical creams for as needed pain relief and he declined. He will get back in touch with me if his pain is not improving as he would like it to. PLAN: ---> Continue physical therapy for the low back including core work, hip flexor stretches, general stretching and strengthening for the back and initiation of a home exercise program. Traction and modalities per therapist discretion. ---> Medications: Continue Flexeril PRN --> Shaq should call or go to the ED if they have any bowel or bladder incontinence, worsening muscle weakness or worsening of their symptoms. ---> Follow up PRN Dariana Conklin MD Manager Commercial-[employer], Clinical Department of Physical Medicine and Rehabilitation documented in this encounter [facility] 06-22-2022 History of Present illness Narrative Mr. Last left the clinic after labs were drawn but before being seen. We will attempt to reach him and re-schedule. documented in this encounter [facility] 03-22-2022 History of Present illness Narrative Reason for visit: Shaq Last has a history of treated prostate cancer. Summary of History: Shaq Last is a 71 y.o. male who presents for medical oncology consultation. He first presented with an elevated PSA and prostatitis in 2013. In April 2015 his PSA was found to be 11.77 ng/ml, as well as having an abnormal BETTY. He underwent a TRUS prostate biopsy on 06/05/15 that showed high volume (40-80% of the tissue sample) GS 7 prostate with almost every core positive for cancer. He had a robotic prostatectomy + PLND on 07/30/15. This pathology revealed 1 of 23 positive lymph nodes and 4+3=7 to 92% of the tissue. There was Microscopic invasion of bladder neck invasion and seminal vesicle muscle wall invasion. He was considered to have grossly positive margins, pT3nN1. His first 3 month PSA was elevated at 0.16ng/ml. He has seen Dr. Nishant Salas for consideration of salvage EBRT and has decided to proceed. He started oral Casodex 09/05/2015 and stopped after 2 weeks. He also was started on Eligard by Dr. García and received his first injection 09/11/2015. Salvage radiation treatment completed 12/2015. ADT completed 02/2016 (final Eligard injection 11/2015). He had an excision of left gluteus lipoma with Dr. Philip in Fall 2015. No complications and healed well. Interim history: Patient is here today for his yearly follow-up. He reports no recent hospitalizations, ED visits, recent illness, or new diagnosis. However he is having acute low-mid back pain the past 2-3 days. He feels he first noticed low back discomfort when riding his bike, but this initially improved with rest. However the past couple days is started without trauma and is now limiting his activity. The pain waxes and wanes in severity, but does seem worse when sitting and lying. Seems to improve when he walks around. He denies leg weakness or neuropathy. The most bothersome area is right above his belt line and is tight and sore to touch . He has no other pain complaints. He denies SOB, chest pain, nausea, emesis, abdominal pain, hematuria, bloody stools, urinary changes. He has good energy level and remains independent in daily activities. He has good appetite. 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 rate 16, weight 64.1 kg (141 lb 6.4 oz), SpO2 100 %. Wt Readings from Last 3 Encounters: 03/22/22 64.1 kg (141 lb 6.4 oz) 12/30/20 60.6 kg (133 lb 9.6 oz) 11/19/19 61.5 kg (135 lb 9.6 oz) Constitutional: He is alert and oriented to person, place, and time. NAD. HENT: Head: Normocephalic and atraumatic. Eyes: Conjunctivae are normal. No scleral icterus. Neck: Normal range of motion. Neck supple. Cardiovascular: Normal rate, regular rhythm and normal heart sounds. No murmur heard. Pulmonary/Chest: Effort normal and breath sounds normal. No respiratory distress. He has no wheezes. He has no rales. Abdominal: Soft. Bowel sounds are normal. He exhibits no distension and no mass. There is no tenderness. : No CVA tenderness. Musculoskeletal: + Tenderness with palpation of low spine, L >R. Appears uncomfortable when getting up from the chair and when bending. Lymphadenopathy: He has no cervical or supraclavicular adenopathy. Skin: Skin is warm and dry. No rash noted. He is not diaphoretic. No erythema. No pallor. Psychiatric: Affect normal. Lab Review: Lab Results Component Value Date WBC 4.86 02/28/2019 WBC 4.45 09/19/2018 MCV 94.6 (H) 02/28/2019 MCV 92.9 09/19/2018 lastlabosu(sbans)@ Lab Results Component Value Date SODIUM 138 06/19/2020 SODIUM 140 09/19/2018 POTASSIUM 4.3 06/19/2020 POTASSIUM 3.8 09/19/2018 CHLORIDE 104 06/19/2020 CHLORIDE 102 09/19/2018 CO2 28 06/19/2020 CO2 31 (H) 09/19/2018 BUN 22 06/19/2020 BUN 24 (H) 09/19/2018 Lab Results Component Value Date ALT 12 02/28/2019 ALT 13 09/19/2018 AST 15 02/28/2019 AST 16 09/19/2018 BILIRUBIN neg 01/02/2014 Lab Results Component Value Date PSA 0.08 06/30/2021 PSA <0.04 09/19/2018 PSA 12.7 (H) 05/09/2015 PSAFREE 2.1 05/09/2015 Lab Results Component Value Date TESTOSTERONE 443 12/30/2020 TESTOSTERONE 467 03/20/2018 Assessment and Plan: Intermediate risk prostate cancer, s/p RPR 07/30/2015 G 4+3, pT3bN1 with residual PSA 0.16ng/ml. Has decided to proceed with salvage combined therapy with AA and EBRT. Started AA with Dr. García in August 2015. Has seen Dr Nishant Deleon and completed EBRT 12/2015. Completed treatment with single agent Eligard (complaints of fatigue with the induction Casodex) in February 2016. - PSA now 0.09ng/ml. 2nd detectable. - Plan for PSAMA PET when PSA rises to 0.25-50ng/ml. - RTC 3 months with PSA. Acute Low- Mid Back Pain: Progressing soreness when riding his bike up hills this summer, so he stopped. - Now with a 2-3 day history of acute pain L sided more than right with palpable tenderness. - X-rays today. - Start supportive Flexeril, Naproxen, and Prilosec. - Referral to spine clinic and MRI. Survivorship: He previously declined survivorship appointment. - Frequency/Nocturia - 2-3 per night. Stable. - ED since radiation. Not interested in any ED therapy at this time. LEWIS [facility] Oncology Attending addendum I saw and evaluated the patient with the advanced practice provider. I provided a substantive portion of the care for this patient. I personally performed all aspects of the medical decision making for this encounter. I have reviewed and verified this documentation and it accurately reflects our care. The nurse practitioner and I have spoken with the patient and provided written and verbal instructions for the patient. Mr. Last returns for a scheduled visit. He reports new low back pain that seems most consistent with a muscle strain. The low PSA is noted. We recommend PSMA-PET imaging for a PSA of 0.25 - 0.5. Plain xray unremarkable. Supportive measures recommended. documented in this encounter [facility] 03-22-2022 Instructions LEWIS Alejandro - 03/22/2022 4:00 PM EDT Back films today. Naproxen (take with food) twice a day. Take Prilosec while taking the Naproxen. Flexeril (muscle relaxant) 10mg TUD as needed. documented in this encounter [facility] 12-30-2020 History of Present illness Narrative Attending addendum. I agree with the fellow's note after my independent review of previous records, interview and examination. The plan was developed mutually at the time of the visit with the patient. The above note has been reviewed and I agree with the assessment and plan. Mr. Last has no symptoms of progressive/recurrent disease. His PSA is undetectable and testosterone is normal. He will return in 1 year. PSA at 6 months Reason for visit: Shaq Last has a history of treated prostate cancer. Summary of History: Shaq Last is a 66 y.o. male who presents for medical oncology consultation. He first presented with an elevated PSA and prostatitis in 2013. In April 2015 his PSA was found to be 11.77 ng/ml, as well as having an abnormal BETTY. He underwent a TRUS prostate biopsy on 06/05/15 that showed high volume (40-80% of the tissue sample) GS 7 prostate with almost every core positive for cancer. He had a robotic prostatectomy + PLND on 07/30/15. This pathology revealed 1 of 23 positive lymph nodes and 4+3=7 to 92% of the tissue. There was Microscopic invasion of bladder neck invasion and seminal vesicle muscle wall invasion. He was considered to have grossly positive margins, pT3nN1. His first 3 month PSA was elevated at 0.16ng/ml. He has seen Dr. Nishant Salas for consideration of salvage EBRT and has decided to proceed. He started oral Casodex 09/05/2015 and stopped after 2 weeks. He also was started on Eligard by Dr. García and received his first injection 09/11/2015. Salvage radiation treatment completed 12/2015. ADT completed 02/2016 (final Eligard injection 11/2015). He had an excision of left gluteus lipoma with Dr. Philip in Fall 2015. No complications and healed well. Interim history: Patient is here today for his yearly follow-up. He reports feeling well and has no complaints or concerns. He denies recent hospitalizations, ED visits, fevers, recent illness, SOB, chest pain, nausea, emesis, abdominal pain, hematuria, bloody stools, urinary changes. He has good energy level and remains independent in daily activities. He has good appetite. Of note, he did break his right leg in fall after tripping in his basement. This was managed with a leg brace for 2 months and physical therapy. He is now walking well and fully functional. PSA History: 12/30/2020 <0.06 OFF Test pending 06/19/2020 0.06 OFF 11/19/2019 <0.06 OFF 09/19/2018 <0.04 OFF 03/20/2018 0.04 OFF 09/05/2017 <0.04 OFF Test 412 02/24/2017 <0.04 OFF Test 218 10/11/2016 <0.04 OFF Test 221 06/21/2016 <0.04 OFF Test 64 03/22/2016 <0.04 Completes salvage ADT Test 23 01/07/2016 Completed salvage radiation 12/08/2015 0.02 Eligard 22.5mg 09/11/2015 Eligard 22.5mg / Casodex stopped 09/19/2015 09/05/2015 0.16 Casodex started 07/30/2015 RPR, G 7 pT3b pN1 05/09/2015 11.77 Review of Systems Constitutional: Negative for fever and unexpected weight change. Respiratory: Negative for shortness of breath. Cardiovascular: Negative for chest pain. Gastrointestinal: Negative for abdominal pain, blood in stool, nausea and vomiting. Genitourinary: Negative for hematuria. Musculoskeletal: Negative for back pain and neck pain. Neurological: Negative for headaches. Hematological: Does not bruise/bleed easily. All other systems reviewed and are negative. Vitals: There were no vitals taken for this visit. Wt Readings from Last 3 Encounters: 11/19/19 61.5 kg (135 lb 9.6 oz) 12/18/18 62.6 kg (137 lb 14.4 oz) 09/19/18 63.5 kg (140 lb) Physical Exam Constitutional: General: He is not in acute distress. Appearance: He is not diaphoretic. HENT: Head: Normocephalic and atraumatic. Mouth/Throat: Pharynx: No oropharyngeal exudate. Eyes: General: No scleral icterus. Right eye: No discharge. Left eye: No discharge. Conjunctiva/sclera: Conjunctivae normal. Cardiovascular: Rate and Rhythm: Normal rate and regular rhythm. Heart sounds: Normal heart sounds. No murmur heard. Pulmonary: Effort: Pulmonary effort is normal. No respiratory distress. Breath sounds: Normal breath sounds. No wheezing or rales. Abdominal: General: Bowel sounds are normal. There is no distension. Palpations: Abdomen is soft. There is no mass. Tenderness: There is no abdominal tenderness. Genitourinary: Comments: Scrotal exam reveals palpably normal testicles. No inguinal hernias appreciated. No erythema/pain. Musculoskeletal: General: No tenderness. Normal range of motion. Cervical back: Normal range of motion and neck supple. Lymphadenopathy: Cervical: No cervical adenopathy. Skin: General: Skin is warm and dry. Coloration: Skin is not pale. Findings: No erythema or rash. Neurological: Mental Status: He is alert and oriented to person, place, and time. Neurological Exam Mental Status Alert. Lab Review: Lab Results Component Value Date WBC 4.86 02/28/2019 WBC 4.45 09/19/2018 MCV 94.6 (H) 02/28/2019 MCV 92.9 09/19/2018 lastlabosu(sbans)@ Lab Results Component Value Date SODIUM 138 06/19/2020 SODIUM 140 09/19/2018 POTASSIUM 4.3 06/19/2020 POTASSIUM 3.8 09/19/2018 CHLORIDE 104 06/19/2020 CHLORIDE 102 09/19/2018 CO2 28 06/19/2020 CO2 31 (H) 09/19/2018 BUN 22 06/19/2020 BUN 24 (H) 09/19/2018 Lab Results Component Value Date ALT 12 02/28/2019 ALT 13 09/19/2018 AST 15 02/28/2019 AST 16 09/19/2018 BILIRUBIN neg 01/02/2014 Lab Results Component Value Date PSA 0.06 06/19/2020 PSA <0.04 09/19/2018 PSA 12.7 (H) 05/09/2015 PSAFREE 2.1 05/09/2015 Lab Results Component Value Date TESTOSTERONE 467 03/20/2018 Assessment and Plan: Intermediate risk prostate cancer, s/p RPR 07/30/2015 G 4+3, pT3bN1 with residual PSA 0.16ng/ml. Has decided to proceed with salvage combined therapy with AA and EBRT. Started AA with Dr. García in August 2015. Has seen Dr Nishant Deleon and completed EBRT 12/2015. Completed treatment with single agent Eligard (complaints of fatigue with the induction Casodex) in February 2016. A. PSA < 0.06ng/ml today. Testosterone has recovered. B. He remains clinically stable and without new symptoms C. PSA only in 6 months. RTC in 1 year with labs prior. Survivorship: A. He declined survivorship appointment. B. Frequency/Nocturia - 2-3 per night. Stable. C. ED since radiation. Not interested in any ED therapy at this time. Patient discussed with the attending, Dr. Rosales. Radha Kennedy MD Hematology/Oncology Fellow PGY5 Pager [phone] documented in this encounter [facility] 11-14-2020 History of Present illness Narrative [facility] Patient Name: Shaq Last Date: 11/14/20 Patient : 1950 Patient Age: 69 y.o. CC: Chief Complaint Patient presents with Right Knee - Follow-up SUBJECTIVE: The patient presents for follow up of right knee pain. He is an avid bike rider. The patient denies any pain today. The patient denies any injury today. The patient denies any mechanical locking, but have had instability and swelling in the right knee. The patient has tried NSAIDS and formal PT with significant relief. The patient denies any prior history of injury to the knee. The 14 review of systems was negative unless otherwise noted. The patient s past medical history, allergies, medication list, social history, and family medical history were documented, updated, and reviewed in the chart. OBJECTIVE: Vitals: documented and reviewed in the chart. General: alert, cooperative, well appearing, in no apparent distress. Musculoskeletal: There is no obvious deformity. Gait is normal. There is normal active range of motion of all four extremities. Motor and sensory function is grossly intact. There are no focal deficits. Bilateral Knee: Inspection of the bilateral knee demonstrates there is no obvious deformity or effusion. The bilateral knee is stable without evidence of dislocation. There is normal flexion and extension of the bilateral knee. Assessment of ligamentous stability demonstrates the ACL/PCL/LCL/MCL are all intact. There is no pain with varus or valgus strain. Palpation of the bilateral knee demonstrates there is no medial or lateral joint line tenderness. There is no pain with flexion circumduction testing. There is no pain along the tibial tuberosity or patellar tendon. There is pain under the medial facet of the patella. There is no pain with patellar subluxation, rocking, or grinding. The bilateral knee demonstrates normal muscle tone with 5/5 strength with flexion extension. There is no pain with resisted testing. He does sublux the patella about 40% bilaterally. Skin: The skin is without jaundice. It is intact without pathologic lesions, erythema, vesicles, discharge, or rash. Palpation of the skin is normal without induration, subcutaneous nodules, or tightening. Extremities: There is no clubbing, cyanosis, or edema. 2+ peripheral pulses. ASSESSMENT / PLAN: 1. Primary osteoarthritis of both knees Bilateral Knee OA: He will continue the non-operative arthritis protocol. He will continue the bilateral knee PFS braces. He will continue the Tylenol as needed for pain. He will continue the Glucosamine 1500 mg daily. He will follow up as needed. Srinivas Hackett IV, MD documented in this encounter [facility] 09-17-2020 Miscellaneous Notes Patient was seen and examined by mid-level practitioner. Mid-level practitioner was involved in obtaining patient's history and performing physical exam. Treatment plan decision was that of the mid-level practitioner. I was present in the emergency department and available for consultation, but did not personally evaluate patient or perform decision-making with regard to their treatment plan. documented in this encounter [facility] 09-17-2020 Hospital Discharge instructions Jessica Grove PA-C - 09/17/2020 [facility] [address] [address] Emergency, Walk-In Sliding fee scale. First come, first seen basis. Tuesday, Tuesday, , Tuesday - 8:30 a.m. - 1:30 p.m. Tuesday - 9:30 a.m. - 1:30 p.m. [facility] [address] [place] [id number] Fillings, exams, cleanings, extractions (no wisdom teeth), front root canals. Sliding fee scale based on income. Bring 2 current pay stubs, current electric, gas, or phone bill with picture ID. By appointment only. Call 8 a.m. Tuesday, , and Tuesday for emergencies. [facility] [address] [place] [address] Fillings, exams, cleanings, extractions (no wisdom teeth), front root canals. Sliding fee scale based on income. Bring 2 current pay stubs, current electric, gas, or phone bill with picture ID. By appointment only. Emergency appointments available. [facility] [address] [place] [id number] Extractions only. $10 donation per extraction requested. First come, first seen on Tuesday nights. Doors open at 5 p.m. [facility] [address] [address] [address] [place] [address] Dental exams, fillings, extractions, and cleanings. Call on Fridays to make an appointment for a later date. [facility] Sliding fee scale. Call for application. Take penicillin as prescribed, follow-up with one of the attached dental referrals. If you notice any severe facial swelling, fevers etc., these would be reasons to return to the emergency room. Your blood pressure today is elevated, I recommend you follow-up with a primary care doctor for further evaluation management of this. documented in this encounter [facility] 09-17-2020 Emergency department Note ED PROVIDER NOTE [facility] EMERGENCY DEPARTMENT NAME: Shaq Last AGE: 69 y.o. : 1950 VISIT DATE: 09/17/2020 CSN: [id number] PCP: Fani Saunders CNP Chief Complaint Patient presents with Dental Pain 69-year-old male with past medical history as listed below presents to the ED for evaluation of dental pain. Patient states about a week ago he noticed that he chipped his tooth, it is tooth #31. Patient states that in the last couple days it has been starting to hurt him, hurts to chew. He also states that when he pressed on the outside of his face it is painful. Denies any facial swelling. Denies any lymphadenopathy, fevers, chills. He states taking Tylenol ibuprofen without relief. Patient states he called multiple dental clinics and they were unable to get him in for 2 to 3 weeks. He states he also went to [facility]'s ER yesterday, waited for 4 hours in the lobby and they told him to try the [facility] dental clinic, he went there today but they were unable to fit him in. History provided by: Patient Dental Pain Associated symptoms: no congestion and no fever Past Medical History: Diagnosis Date Hypertension Prostate cancer (HCC) Past Surgical History: Procedure Laterality Date CYST REMOVAL ORTHOPEDIC SURGERY 2017 collar bone repair PROSTATECTOMY 2016 History reviewed. No pertinent family history. Social History Socioeconomic History Marital status: Single Spouse name: Not on file Number of children: Not on file Years of education: Not on file Highest education level: Not on file Occupational History Not on file Social Needs Financial resource strain: Not on file Food insecurity Worry: Not on file Inability: Not on file Transportation needs Medical: Not on file Non-medical: Not on file Tobacco Use Smoking status: Never Smoker Smokeless tobacco: Never Used Substance and Sexual Activity Alcohol use: No Drug use: No Sexual activity: Not on file Lifestyle Physical activity Days per week: Not on file Minutes per session: Not on file Stress: Not on file Relationships Social connections Talks on phone: Not on file Gets together: Not on file Attends quaker service: Not on file Active member of club or organization: Not on file Attends meetings of clubs or organizations: Not on file Relationship status: Not on file Other Topics Concern Not on file Social History Narrative Not on file Previous Medications Medication Sig calcium carbonate-vitamin D2 500 mg(1,250mg) -200 unit tablet Take 1 tablet by mouth 2 (two) times a day. hydrochlorothiazide (MICROZIDE) 12.5 mg capsule Take 12.5 mg by mouth. HYDROcodone-acetaminophen (NORCO) 5-325 mg per tablet Take 1 (one) tablet by mouth every 6 (six) hours as needed for pain . ibuprofen (ADVIL,MOTRIN) 800 MG tablet Take 1 (one) tablet (800 mg total) by mouth every 8 (eight) hours as needed for pain . lisinopril (PRINIVIL,ZESTRIL) 10 MG tablet Take 5 mg by mouth daily. multivitamin (multivitamin) per tablet Take 1 tablet by mouth daily. omeprazole (PRILOSEC) 40 MG capsule Take 1 (one) capsule (40 mg total) by mouth daily . Allergies Allergen Reactions Bactrim [Sulfamethoxazole-Trimethoprim] Anxiety Review of Systems Constitutional: Negative for chills and fever. HENT: Positive for dental problem. Negative for congestion and rhinorrhea. Eyes: Negative for visual disturbance. Respiratory: Negative for shortness of breath. Cardiovascular: Negative for chest pain and leg swelling. Gastrointestinal: Negative for abdominal pain, nausea and vomiting. Genitourinary: Negative for difficulty urinating and hematuria. Musculoskeletal: Negative for gait problem. Skin: Negative for color change. Neurological: Negative for dizziness and light-headedness. Hematological: Does not bruise/bleed easily. Psychiatric/Behavioral: Negative for confusion and decreased concentration. All other systems reviewed and are negative. Patient Vitals for the past 24 hrs: BP Temp Temp src Pulse Resp SpO2 09/17/20 1300 (!) 179/88 97.8 F (36.6 C) Oral 74 18 98 % Physical Exam Constitutional: General: He is not in acute distress. Appearance: Normal appearance. He is not ill-appearing, toxic-appearing or diaphoretic. HENT: Head: Normocephalic. Right Ear: External ear normal. Left Ear: External ear normal. Nose: Nose normal. Mouth/Throat: Comments: No facial swelling, no lymphadenopathy, full range of motion of the jaw. Eyes: Extraocular Movements: Extraocular movements intact. Neck: Musculoskeletal: Normal range of motion. Cardiovascular: Rate and Rhythm: Normal rate. Pulmonary: Effort: Pulmonary effort is normal. Abdominal: General: Abdomen is flat. Musculoskeletal: Normal range of motion. Skin: General: Skin is warm and dry. Neurological: General: No focal deficit present. Mental Status: He is alert. Psychiatric: Mood and Affect: Mood normal. Behavior: Behavior normal. Laboratory & Radiographic Imaging (if done): No results found for this visit on 09/17/20. No orders to display Procedures MDM Number of Diagnoses or Management Options Elevated blood pressure reading Pain, dental Diagnosis management comments: 69-year-old male presents to the ED for evaluation of dental pain, see above HPI and physical exam. He does not have any clear evidence of severe dental infection at this time however given that his pain is just now starting, do feel that there is possibility for this to develop, he will likely need to get this tooth pulled, will start him on penicillin in preparation to be seen by dentistry. I will also give him a list of dental clinic referrals. I did order and apply zinc oxide paste to the tooth to protect pulp and help with hypersensitivity. Patient will be discharged in stable condition with strict return precautions to return to the ED. His blood pressure was noted to be elevated at 179/88, he is encouraged to follow-up with PCP. He is asymptomatic of this. . Clinical Impression: 1. Pain, dental 2. Elevated blood pressure reading ED Disposition None Follow-up Information 1. [facility] - Dental Clinic. [address] [id number] [phone] 2. [facility] - [facility] Care. [address] [id number] 3. [facility] Care. [address] [address] 4. Fani Saunders CNP. Specialty: Family Medicine Why: for follow up on elevated blood pressure [address] [facility] [address] [place] [address] Contact information for after-discharge care Follow-up information has not been specified. New Prescriptions penicillin v potassium (VEETID) 500 MG tablet Take 1 (one) tablet (500 mg total) by mouth 4 (four) times a day for 7 days . Jessica Grove PA-C 09/17/20 1350 Pt c/o broken molar 1 week ago. documented in this encounter [facility] Evaluation note Diagnosis Pain, dental- Primary Elevated blood pressure reading Elevated blood pressure reading without diagnosis of hypertension [facility] Primary osteoarthritis of both knees- Primary [facility] Diagnosis Prostate cancer- Primary Malignant neoplasm of prostate [facility] Diagnosis Acute bilateral low back pain with left-sided sciatica Mid back pain Backache, unspecified [facility] Diagnosis Acute bilateral low back pain with left-sided sciatica Mid back pain Backache, unspecified [facility] Diagnosis Mid back pain- Primary Backache, unspecified Prostate cancer Malignant neoplasm of prostate Acute bilateral low back pain with left-sided sciatica Acute bilateral low back pain with left-sided sciatica Mid back pain Backache, unspecified [facility] Diagnosis Prostate cancer- Primary Malignant neoplasm of prostate [facility] Diagnosis Chronic bilateral low back pain without sciatica- Primary Spondylosis of lumbar region without myelopathy or radiculopathy Lumbosacral spondylosis without myelopathy Lumbar degenerative disc disease Degeneration of lumbar or lumbosacral intervertebral disc Lumbar facet arthropathy Lumbosacral spondylosis without myelopathy [facility] Diagnosis Prostate cancer- Primary Malignant neoplasm of prostate [facility] Diagnosis Prostate cancer- Primary Malignant neoplasm of prostate [facility] Diagnosis Colon cancer screening Special screening for malignant neoplasms, colon [facility] Prostate cancer- Primary Malignant neoplasm of prostate [facility] Diagnosis Prostate cancer- Primary Malignant neoplasm of prostate documented in this encounter [facility] Diagnosis Decreased range of motion of left shoulder Closed nondisplaced fracture of acromial end of left clavicle with routine healing, subsequent encounter Diagnosis Decreased range of motion of left shoulder Closed nondisplaced fracture of acromial end of left clavicle with routine healing, subsequent encounter Diagnosis Fracture Closed fracture of unspecified bone Diagnosis Shoulder stiffness, left - P rimary Closed displaced fracture of acromial end of left clavicle with routine healing, subsequent encounter Diagnosis Decreased range of motion of left shoulder Closed nondisplaced fracture of acromial end of left clavicle with routine healing, subsequent encounter Diagnosis Decreased range of motion of left shoulder Closed nondisplaced fracture of acromial end of left clavicle with routine healing, subsequent encounter Diagnosis Decreased range of motion of left shoulder Closed nondisplaced fracture of acromial end of left clavicle with routine healing, subsequent encounter Diagnosis Shoulder stiffness, left - P rimary Closed displaced fracture of acromial end of left clavicle with routine healing, subsequent encounter Diagnosis Fracture Closed fracture of unspecified bone Diagnosis Right hip pain Pain in joint, pelvic region and thigh Diagnosis Decreased range of motion of left shoulder Closed nondisplaced fracture of acromial end of left clavicle with routine healing, subsequent encounter Diagnosis Decreased range of motion of left shoulder Closed nondisplaced fracture of acromial end of left clavicle with routine healing, subsequent encounter Diagnosis Primary osteoarthritis of both knees- Primary Diagnosis Right knee pain Pain in joint, lower leg Diagnosis Tibial plateau fracture Closed fracture of upper end of tibia Diagnosis Displaced fracture of lateral condyle of right tibia Diagnosis Closed fracture of lateral portion of right tibial plateau, with routine healing, subsequent encounter- Primary Diagnosis Hemorrhoids, unspecified hemorrhoid type- Primary Elevated blood pressure reading Elevated blood pressure reading without diagnosis of hypertension Diagnosis Closed fracture of lateral portion of right tibial plateau, with routine healing, subsequent encounter- Primary Diagnosis Closed displaced fracture of lateral condyle of right tibia with routine healing Diagnosis Closed fracture of lateral portion of right tibial plateau, initial encounter- Primary Diagnosis Closed fracture of right tibial plateau, initial encounter- Primary Fall, initial encounter Elevated blood pressure reading Elevated blood pressure reading without diagnosis of hypertension Acute pain of right knee Diagnosis Gastritis without bleeding, unspecified chronicity, unspecified gastritis type- Primary Summary Purpose Family History No Family History Records FoundNo Family History Records FoundNo Family History Records FoundNo Family History Records Found Advance Directives No Advanced Directives Records FoundDocuments on File Type Date Recorded Patient Smudger Expl anation Advance Directives and Livin g Will 03/03/2019 2:49 PM Latest Code Status on File Code Status Date Activated Date Inactivated Comments Full Code 08/08/2014 6:53 PM 08/10/2014 8:01 PM Documents on File Type Date Recorded Patient Smudger Expl anation Advance Directives and Livin g Will 03/03/2019 2:49 PM Latest Code Status on File Code Status Date Activated Date Inactivated Comments Full Code 08/08/2014 6:53 PM 08/10/2014 8:01 PM Documents on File Type Date Recorded Patient Smudger Expl anation Advance Directives and Livin g Will 03/10/2020 7:31 PM Documents on File Type Date Recorded Patient Smudger Expl anation Advance Directives and Livin g Will 05/21/2020 7:31 PM Documents on File Type Date Recorded Patient Smudger Expl anation Advance Directives and Livin g Will 05/21/2020 7:31 PM Documents on File Type Date Recorded Patient Smudger Expl anation Advance Directives and Livin g Will 03/03/2020 11:13 PM Documents on File Type Date Recorded Patient Smudger Expl anation Advance Directives and Livin g Will 09/17/2020 1:14 PM Latest Code Status on File Code Status Date Activated Date Inactivated Comments Full Code 02/12/2016 6:48 AM 02/12/2016 12:39 PM Full Code 07/30/2015 2:59 PM 07/31/2015 2:32 PM Latest Code Status on File Code Status Date Activated Date Inactivated Comments Full Code 02/12/2016 6:48 AM 02/12/2016 12:39 PM Code Status History Code Status Date Activated Date Inactivated Comments Full Code 07/30/2015 2:59 PM 07/31/2015 2:32 PM Latest Code Status on File Code Status Date Activated Date Inactivated Comments Full Code 02/12/2016 6:48 AM 02/12/2016 12:39 PM Code Status History Code Status Date Activated Date Inactivated Comments Full Code 07/30/2015 2:59 PM 07/31/2015 2:32 PM History of Present Illness * Genesis Maher, NEWSPAPER PHOTOJOURNALIST - 12/29/2016 2:30 PM EDT Formatting of this note may be different from the original. [facility] OUTPATIENT REHABILITATION DAILY TREATMENT NOTE Today's Date 12/29/2016 Patient Name: Shaq Last Date of : 1950 Current Visit #: 6 Authorized Visits: 21 Case Name: Jacey clavicle fx History: Pre-Treatment Pain Scale: 3 Symptoms: stabilized Functional Diagnosis: SNOMED CT(R) 1. Decreased range of motion of left shoulder SHOULDER JOINT - RANGE OF MOVEMENT - FINDING 2. Closed nondisplaced fracture of acromial end of left clavicle with routine healing, subsequent encounter CLOSED FRACTURE OF ACROMIAL END OF CLAVICLE Clinical Information: Subjective: Pt states that Tuesday his arm was really hurting but was better by Tuesday. Objective Unable to lift 5# wt over head without pain Treatments: Physical Therapy Exercise Log - 12/29/16 1400 OTHER Contraindications/Precautions/Notes Visit 11/05 Therapeutic Exercise (88578) Intervention UBE Parameters lvl seat 6 Comments fwd 2 min retro 2 min Time 4 Therapeutic Exercise (21870) Intervention Shoulder pulleys Parameters flex/scap Comments 5 x10ea Time 7 Therapeutic Exercise (65794) Intervention Shoulder isometric Parameters 5 dir Comments 5 x10ea Time 7 Therapeutic Exercise (84317) Intervention Rows/ext Parameters RTB Comments 2x10 Time 5 Therapeutic Exercise (87964) Intervention ABC window x1 Parameters Bicep curls 2# 2x10 Time 5 Manual Therapy (90479) Intervention PROM L shoulder Parameters all planes Comments grade II mobs Time 10 PT Treatment Times Therapeutic Exercise 28 Manual Therapy 10 Direct Treatment Time 38 Total Treatment Time 40 Goals: Physical Therapy Additional Goals:Patient will be able to place items on a shelf overhead weighing >5 pounds without pain or limitations in 6 w8eks. Goal Status: Established. Patient will demonstrate correct posture while performing therapeutic exercises without verbal cueswithin 3 weeks. Goal Status: Established Patient will demonstrate >70* ER & IR, and >160* flexion in 8 weeks to progress strengthening and ease of completing IADL's without compensations. Goal status: Established. Patient will demonstrate abd, ER, & IR MMT of 5/5 for the involved shoulder to improve ease of IADL's and engineering drawings checker in 8 weeks. Goal status: Established. Patient will be independent with a HEP to improve strength, flexibility, and functional independence within 6 weeks in order to manage symptoms independently. Goal Status: Established Patient Education provided: Muscle soreness is expected after therapy. Table slides to HEP Post-Treatment Pain Scale: 3 Clinical Impression: Pt was able to tolerate therapy with reports of mild pain with rows at end range. Cued pt to not push so far into shoulder extension with rows to avoid pain. Pt demos compensation with ABC for flexion above 100 degrees. Pt continues to demo limited PROM with facial grimace noted d/t pain and muscle guarding. Plan for Next Visit: Wall walks, Cane exercises Genesis Maher PTA STATE LICENSE, NEWSPAPER PHOTOJOURNALIST.[phone] in this encounter* Genesis Maher, BEKA - 01/10/2017 3:15 PM EDT Formatting of this note may be different from the original. [facility] OUTPATIENT REHABILITATION DAILY TREATMENT NOTE Today's Date 01/10/2017 Patient Name: Shaq Last Date of : 1950 Current Visit #: 10 Authorized Visits: 21 Case Name: Jacey clavicle fx History: Pre-Treatment Pain Scale: 2 Symptoms: stabilized Functional Diagnosis: SNOMED CT(R) 1. Decreased range of motion of left shoulder SHOULDER JOINT - RANGE OF MOVEMENT - FINDING 2. Closed nondisplaced fracture of acromial end of left clavicle with routine healing, subsequent encounter CLOSED FRACTURE OF ACROMIAL END OF CLAVICLE Clinical Information: Subjective: Pt states that his pain is the same but Tuesday it was stiff and sore after being in therapy on Tuesday. Pt states his pain was back to normal Tuesday. Objective Improved AROM per observation with exercises Treatments: Physical Therapy Exercise Log - 01/10/17 1500 OTHER Contraindications/Precautions/Notes Visit 03/07 Therapeutic Exercise (67281) Intervention UBE Parameters lvl 3 Comments fwd/retro x2 Time 4 Therapeutic Exercise (34807) Intervention Shoulder pulleys Parameters flex/scap Comments 5 x10 Time 5 Therapeutic Exercise (36265) Intervention Doorway stretch Parameters gentle 20 x3 Comments Wall walk flex/scap 5 x5 Time 6 Therapeutic Exercise (65925) Intervention AROM 3 dir Parameters 1x10ea Comments Shoulder taps 1x10ea at bar Time 4 Therapeutic Exercise (57425) Intervention ABC's window Parameters x1 Comments Cane ext 5 x10 Time 5 Therapeutic Exercise (42858) Intervention Rows/ext Parameters GTB Comments 2x10ea Time 5 Therapeutic Exercise (43305) Intervention Supine HABD RTB 2x10 Parameters Cane AROM flex Comments 2# supine 5 x10 Time 5 Therapeutic Exercise (53719) Intervention Prone HABD 1x10 Time 2 Manual Therapy (29493) Intervention PROM Parameters all planes Comments Grade II mobs Time 8 PT Treatment Times Therapeutic Exercise 36 Manual Therapy 8 Direct Treatment Time 44 Total Treatment Time 45 Goals: Physical Therapy Additional Goals:Patient will be able to place items on a shelf overhead weighing >5 pounds without pain or limitations in 6 w8eks. Goal Status: Established. Patient will demonstrate correct posture while performing therapeutic exercises without verbal cueswithin 3 weeks. Goal Status: Established Patient will demonstrate >70* ER & IR, and >160* flexion in 8 weeks to progress strengthening and ease of completing IADL's without compensations. Goal status: Established. Patient will demonstrate abd, ER, & IR MMT of 5/5 for the involved shoulder to improve ease of IADL's and engineering drawings checker in 8 weeks. Goal status: Established. Patient will be independent with a HEP to improve strength, flexibility, and functional independence within 6 weeks in order to manage symptoms independently. Goal Status: Established Patient Education provided: Soreness is expected after therapy and usually takes 1-2 days to returnto normal. Post-Treatment Pain Scale: 2 Clinical Impression: Pt was able to tolerate therapy as expected. Pt required cues with repeated extension to avoid trunk rotation. Added 2# weight with AAROM flex stretch with hold for ROM. Added prone HABD for scapular strengthening and stabilization. Plan for Next Visit: Prone krysta Maher PTA STATE LICENSE, NEWSPAPER PHOTOJOURNALIST.[id number] in this encounter* Genesis Maher, BEKA - 01/12/2017 3:15 PM EDT Formatting of this note may be different from the original. [facility] OUTPATIENT REHABILITATION DAILY TREATMENT NOTE Today's Date 01/12/2017 Patient Name: Shaq Last Date of : 1950 Current Visit #: 11 Authorized Visits: 21 Case Name: Jacey clavicle fx History: Pre-Treatment Pain Scale: 3 Symptoms: stabilized Functional Diagnosis: SNOMED CT(R) 1. Decreased range of motion of left shoulder SHOULDER JOINT - RANGE OF MOVEMENT - FINDING 2. Closed nondisplaced fracture of acromial end of left clavicle with routine healing, subsequent encounter CLOSED FRACTURE OF ACROMIAL END OF CLAVICLE Clinical Information: Subjective: Pt states everything is the same. Objective Treatments: Physical Therapy Exercise Log - 01/12/17 1500 OTHER Contraindications/Precautions/Notes Visit 04/07 Therapeutic Exercise (70896) Intervention UBE Parameters lvl 3 Comments fwd/retro x2min ea Time 4 Therapeutic Exercise (84997) Intervention Shoulder pulleys Parameters flex/scap Comments 5 x10 Time 5 Therapeutic Exercise (36367) Intervention Doorway stretch Parameters 20 x3 Comments Wall walks flex/scap 5 x5 Time 6 Therapeutic Exercise (65263) Intervention AROM 3 dir Parameters 1x10ea Comments [place] press 2# 1x10 Time 4 Therapeutic Exercise (27749) Intervention ABC's window Parameters x1 Comments Cane ext 5 x10 Time 5 Therapeutic Exercise (63923) Intervention Rows/ext Parameters GTB Comments 2x10ea Time 5 Therapeutic Exercise (20151) Intervention Shoulder tap 1x10ea Parameters SA punches 3# x20 Comments Cane flex 2# 5 x10 Time 5 Therapeutic Exercise (14394) Intervention Prone HABD 1x10 Time 2 Manual Therapy (23689) Intervention PROM Parameters all planes Comments Grade II mobs Time 8 PT Treatment Times Therapeutic Exercise 36 Manual Therapy 8 Direct Treatment Time 44 Total Treatment Time 45 Goals: Physical Therapy Additional Goals:Patient will be able to place items on a shelf overhead weighing >5 pounds without pain or limitations in 6 w8eks. Goal Status: Progressing 2# 01/12/17 Patient will demonstrate correct posture while performing therapeutic exercises without verbal cueswithin 3 weeks. Goal Status: Established Patient will demonstrate >70* ER & IR, and >160* flexion in 8 weeks to progress strengthening and ease of completing IADL's without compensations. Goal status: Established. Patient will demonstrate abd, ER, & IR MMT of 5/5 for the involved shoulder to improve ease of IADL's and engineering drawings checker in 8 weeks. Goal status: Established. Patient will be independent with a HEP to improve strength, flexibility, and functional independence within 6 weeks in order to manage symptoms independently. Goal Status: Established Patient Education provided: Push ROM and stretch at home Post-Treatment Pain Scale: 2 Clinical Impression: Pt was able to press 2# overhead with reports of weakness and mild pain. Cues with SA punches to maintain elbow in full extension and movement from shoulder. Challenged with caneflexion to maintain elbows in full extension as well. Plan for Next Visit: IR/ER tbVirgen Maher, NEWSPAPER PHOTOJOURNALIST STATE LICENSE, NEWSPAPER PHOTOJOURNALIST.[id number] in this encounter* Palomo Sawyer, PT - 01/21/2017 12:15 PM EDT Formatting of this note may be different from the original. [facility] OUTPATIENT REHABILITATION DAILY TREATMENT NOTE Today's Date 01/21/2017 Patient Name: Shaq Last Date of : 1950 Current Visit #: 13 Authorized Visits: 21 Case Name: Jacey clavicle fx History: Pre-Treatment Pain Scale: 2 Symptoms: stabilized Functional Diagnosis: SNOMED CT(R) 1. Decreased range of motion of left shoulder SHOULDER JOINT - RANGE OF MOVEMENT - FINDING 2. Closed nondisplaced fracture of acromial end of left clavicle with routine healing, subsequent encounter CLOSED FRACTURE OF ACROMIAL END OF CLAVICLE Clinical Information: Subjective: Patient reports he is usually sore after his PT visits, but he was a lot less sore after last PT session. He complains of 2/10 anterior and superior left shoulder this morning. Objective: Left Shoulder AROM: 150 degrees Flexion Treatments: Physical Therapy Exercise Log - 01/21/17 1200 OTHER Contraindications/Precautions/Notes visit 05/07 Therapeutic Exercise (38604) Intervention UBE Parameters lvl 1 Comments fwd x2min, retro 1min Time 3 Therapeutic Exercise (14803) Intervention Shoulder pulleys Parameters flex/scap Comments 5 x10 Time 5 Therapeutic Exercise (48900) Intervention Doorway stretch Parameters 20 x3 Time 3 Therapeutic Exercise (88789) Intervention AROM 3 dir Parameters 1x12ea Comments [place] press 2# 2x10 Time 6 Therapeutic Exercise (47227) Intervention ABCs window x1 Time 3 Therapeutic Exercise (53186) Intervention Rows/Ext/ IR/ ER Parameters GTB Comments 2x10ea Time 5 Therapeutic Exercise (46353) Parameters SA punches 3# 2x10 Time 3 Manual Therapy (48438) Intervention PROM Parameters all planes Comments Grade II mobs Time 10 PT Treatment Times Therapeutic Exercise 28 Manual Therapy 10 Direct Treatment Time 38 Total Treatment Time 42 Goals: Physical Therapy Additional Goals:Patient will be able to place items on a shelf overhead weighing >5 pounds without pain or limitations in 6 w8eks. Goal Status: Progressing 2# 01/12/17 Patient will demonstrate correct posture while performing therapeutic exercises without verbal cueswithin 3 weeks. Goal Status: Established Patient will demonstrate >70* ER & IR, and >160* flexion in 8 weeks to progress strengthening and ease of completing IADL's without compensations. Goal status: PROGRESSING, 150 degrees flexion on 01/21/17. Patient will demonstrate abd, ER, & IR MMT of 5/5 for the involved shoulder to improve ease of IADL's and engineering drawings checker in 8 weeks. Goal status: Established. Patient will be independent with a HEP to improve strength, flexibility, and functional independence within 6 weeks in order to manage symptoms independently. Goal Status: Established Patient Education provided: Instructed patient to add overhead press for HEP, using soup cans from the pantry for resistance. Post-Treatment Pain Scale: 2 Clinical Impression: Several verbal cues required for slow, controlled eccentric portion of resisted shoulder internal and external rotations. Patient continues to demo increased left shoulder flexion AROM. Patient demonstrates good form with serratus anterior punches, but fatigues quickly and requires longer rest break between sets. Plan for Next Visit: consider adding D1, D2 flexion next session. Palomo Sawyer, PT STATE LICENSE, [id number] in this encounter* Genesis Maher, NEWSPAPER PHOTOJOURNALIST - 02/04/2017 12:15 PM EDT Formatting of this note may be different from the original. [facility] OUTPATIENT REHABILITATION DAILY TREATMENT NOTE Today's Date 02/04/2017 Patient Name: Shaq Last Date of : 1950 Current Visit #: 15 Authorized Visits: 21 Case Name: Jacey clavicle fx History: Pre-Treatment Pain Scale: 1 Symptoms: stabilized Functional Diagnosis: SNOMED CT(R) 1. Decreased range of motion of left shoulder SHOULDER JOINT - RANGE OF MOVEMENT - FINDING 2. Closed nondisplaced fracture of acromial end of left clavicle with routine healing, subsequent encounter CLOSED FRACTURE OF ACROMIAL END OF CLAVICLE Clinical Information: Subjective: Pt states that he is back to work but nervous to stop therapy. Objective Able to press 5# overhead without pain Treatments: Physical Therapy Exercise Log - 02/04/17 1200 OTHER Contraindications/Precautions/Notes Visit Therapeutic Exercise (23750) Intervention UBE Parameters fwd/retro Comments x2min ea Time 4 Therapeutic Exercise (26991) Intervention Shoulder pulleys Parameters flex/scap Comments 5 x10 Time 5 Therapeutic Exercise (17937) Intervention Doorway stretch Parameters 20 x3 Comments HABD RTB 1x10 Time 5 Therapeutic Exercise (94108) Intervention AROM 3 dir Parameters 1# 1x15ea Comments [place] press 5# 2x5 Time 5 Therapeutic Exercise (55336) Intervention ABC's window x1 Parameters IR towel stretch Comments 20 x3 Time 5 Therapeutic Exercise (14492) Intervention Rows/ext IR/ER Parameters GTB 2x10 Comments Wall push ups 2x10 Time 5 Therapeutic Exercise (84976) Intervention D1 no 1x10 Parameters D2 RTB 1x10 Comments SA punch 3# 2x10 Time 5 Manual Therapy (00352) Intervention PROM Parameters all planes Comments Grade II mobs Time 10 PT Treatment Times Therapeutic Exercise 34 Manual Therapy 10 Direct Treatment Time 44 Total Treatment Time 45 Goals: Physical Therapy Additional Goals:Patient will be able to place items on a shelf overhead weighing >5 pounds without pain or limitations in 6 w8eks. Goal Status: Progressing 2# 01/12/17 Patient will demonstrate correct posture while performing therapeutic exercises without verbal cueswithin 3 weeks. Goal Status: Established Patient will demonstrate >70* ER & IR, and >160* flexion in 8 weeks to progress strengthening and ease of completing IADL's without compensations. Goal status: PROGRESSING, 150 degrees flexion on 01/21/17. Patient will demonstrate abd, ER, & IR MMT of 5/5 for the involved shoulder to improve ease of IADL's and engineering drawings checker in 8 weeks. Goal status: Established. Patient will be independent with a HEP to improve strength, flexibility, and functional independence within 6 weeks in order to manage symptoms independently. Goal Status: Established Patient Education provided: Provided updated HEP and resistance bands. Post-Treatment Pain Scale: 1 Clinical Impression: Pt was able to tolerate therapy as expected. Minimal cues required with ER to prevent trunk rotation upon shoulder fatigue. Added IR stretch with towel for ROM. Added HABD and [id number] for strengthening. Plan for Next Visit: Reassess for possible D/C or extension next session Genesis Maher, [place] STATE LICENSE, NEWSPAPER PHOTOJOURNALIST.[id number] in this encounter* Srinivas Hackett IV, MD - 02/13/2020 8:45 AM EDT [facility] Patient Name: Shaq Last Date: 02/13/20 Patient : 1950 Patient Age: 69 y.o. CC: Chief Complaint Patient presents with Right Knee - Follow-up SUBJECTIVE: The patient presents complaining of a 3 month history of right knee pain. He is an avid bike rider.The patient describes the pain as dull. The patient denies any injury today. The patient denies anymechanical locking, but have had instability and swelling in the right knee. The patient has tried NSAIDS without significant relief. The patient denies any prior history of injury to the knee. The 14 review of systems was negative unless otherwise noted. The patient s past medical history, allergies, medication list, social history, and family medical history were documented, updated, and reviewed in the chart. OBJECTIVE: Vitals: documented and reviewed in the chart. General: alert, cooperative, well appearing, in no apparent distress. Musculoskeletal: There is no obvious deformity. Gait is normal. There is normal active range of motion of all four extremities. Motor and sensory function is grossly intact. There are no focal deficits. Bilateral Knee: Inspection of the bilateral knee demonstrates there is no obvious deformity or effusion. The bilateral knee is stable without evidence of dislocation. There is normal flexion and extension of the bilateral knee. Assessment of ligamentous stability demonstrates the ACL/PCL/LCL/MCL are all intact. There is no pain with varus or valgus strain. Palpation of the bilateral knee demonstrates there is no medial or lateral joint line tenderness. There is no pain with flexion circumduction testing. There is no pain along the tibial tuberosity or patellar tendon. There is pain under the medial facet of the patella. There is no pain with patellar subluxation, rocking, or grinding. The bilateral knee demonstrates normal muscle tone with 5/5 strength with flexion extension. There is no pain with resisted testing. He does sublux the patella about 40% bilaterally. Skin: The skin is without jaundice. It is intact without pathologic lesions, erythema, vesicles, discharge, or rash. Palpation of the skin is normal without induration, subcutaneous nodules, or tightening. Extremities: There is no clubbing, cyanosis, or edema. 2+ peripheral pulses. Radiology: X-rays of the Right Knee (3 views, AP, lateral, and sunrise views) Findings: Normal bone mineralization. The joint spaces are decreased in the anterior compartment. The patella is well seated in the trochlear groove. There is no evidence of fracture or dislocation. ASSESSMENT / PLAN: 1. Primary osteoarthritis of both knees Bilateral Knee OA: He will continue the non-operative arthritis protocol. He will be referred for formal PT for the remainder of the program. He was given bilateral knee PFS braces today. He will continue the Tylenol as needed for pain. He will start Glucosamine 1500 mg daily. He will follow up in 4 weeks. Srinivas Hackett IV, MD documented in this encounter* Smooth Eason MD - 04/25/2020 2:42 PM EST Chief complaint: The encounter diagnosis was Closed fracture of lateral portion of right tibial plateau, with routine healing, subsequent encounter. History: Shaq Last is a 69 y.o. male who is now about 7 weeks status post a minimally displaced right lateral tibial plateau fracture which we have been managing nonoperatively. He seems to be doing reasonably well. He does not complain of much pain. For the most part he has been wearing his brace. Unfortunately he is not been particularly compliant with his weightbearing restrictions. He does tell me he walks independently about the house. He seems to be doing reasonably well. He has no complaints of knee instability or recurrent knee effusions. He has been driving. He is not working. He does have significant antecedent history of knee arthritis and pain. Physical exam: He is afebrile. His vital signs are stable. He is alert, oriented pleasant cooperative. He ambulates fairly well without his crutches. He is able to rise from a seated position without using his hands. He has full range of motion of the hip. He demonstrates full range of motion at knee. He has about 5 degrees of valgus laxity with the knee in extension which is increased about 10 with the knee inflexion. His ACL PCL appear to be intact. He is not having much lateral joint line pain. His 0 to 130 degrees of knee motion. He has normal alignment to the knee in the standing position. He does notappear to have any fracture site tenderness with single leg stance. The skin is intact. He has no lower extremity neurologic or vascular deficits. Radiographic exam: AP and lateral radiographs of the right knee have been obtained today in the office at my request. I have personally reviewed them. There is a minimally impacted fracture of the right knee lateral tibial plateau. There is no appreciable change in alignment in comparison to the patient's prior radiographs although the AP radiograph is taken with the knee somewhat flexed and is not of great quality. I do not see any obvious fractures or dislocations. The knee joint is well reduced. Impression: Healing right lateral tibial plateau fracture with minimal displacement. He has not had much displacement despite noncompliance with his weightbearing restrictions. Plan: Seems to making reasonable progress. I do not think he has much displacement even though he has been weightbearing. I do recommend he continue to be partial weightbearing with the use of his hinged knee brace for another 4 5 weeks during the healing process. All questions were answered to his satisfaction. I did not give him any medication. We will see him back in the office in about 5 weeks. He should have AP lateral radiographs of the right knee. documented in this encounter* Smooth Eason MD - 05/21/2020 5:05 PM EST Chief complaint: The encounter diagnosis was Closed fracture of lateral portion of right tibial plateau, with routine healing, subsequent encounter. History: Shaq Last is a 69 y.o. male who is now about 10 weeks status post a nondisplaced fracture of the right knee lateral plateau. He is managed nonoperatively. He seems to be doing well. He is advanced to full weightbearing. He still wearing a hinged knee brace. He is not having much pain. He does describe a popping sensation mostly on the patellofemoral articulation. He does have some antecedent history of right knee arthritis. He is supposed to get outpatient physical therapy however sustained his fracture and has not attended his sessions. Other than that he seems to be doing well. He has no specific issues or concerns today in the office. Physical exam: He is afebrile. His vital signs are stable. He is alert, oriented pleasant cooperative. No one accompanies him today in the office. He ambulates independently. He does not use any ambulatory assist devices. He is however using a hinged knee brace. Clinically the knee is well aligned. He has no varus or valgus instability at 0 30 degrees knee flexion. He does not have a significant knee effusion. He has atrophic right quadriceps and hamstrings with very minimal hypoplastic VMOs bilaterally. He does demonstrate patellofemoral pain and joint crepitance. He has a positive patella compression and a pprehension exam. He is not having much tenderness over the lateral plateau. I do not detect any obvious evidence of meniscal pathology. He has well-maintained knee range of motion from 0 to 130 degrees. He does not demonstrate any lower extremity neurologic or vascular deficits. The skin is intact. Radiographic exam: AP and lateral radiographs of the right knee have been obtained today in the office at my request. I have personally reviewed them. There is a healed nondisplaced fracture of the lateral plateau of the knee. There are minimal arthritic changes of the knee. I do not see any other obvious fractures or dislocations. Impression: Healed and nondisplaced right lateral tibial plateau fracture Minimal degenerative arthritic changes primarily the patellofemoral component with hypoplastic VMO Plan: I recommend he advance to full weightbearing and discontinue the use of his hinged knee brace. We did fit him with a smaller brace which should be more comfortable during activity. I gave him a prescription for outpatient physical therapy to work on his range of motion strengthening particularly targeting his patellar tracking. He may advance his activities as tolerates. I did not give him a medication. He will follow up with Dr. Hackett in about 8 weeks. He does not need any further radiographs. documented in this encounter* Smooth Eason MD - 03/18/2020 4:56 PM EDT Chief complaint: The encounter diagnosis was Closed fracture of lateral portion of right tibial plateau, initial encounter. History: Shaq Last is a 69 y.o. male who presents with a chief complaint of right knee injury. Patient was in his basement and slipped and fell and sustained injury to his right knee about 2 weeks ago. He is seen in the emergency room and diagnosed with a lateral tibial plateau fracture. I have prev iously taken care of him for a left clavicle fracture and he requested follow-up with me. This was his only injury. He has been nonweightbearing. He does not have any neurologic complaints. His pain is well controlled with oral narcotics. He is to go back to the emergency room for a medication refill yesterday. He has no complaints of hip or ankle pain. There are no other injuries. Prior to this i njury he had been complaining of right knee pain. He describes the knee pain is dull. There has been no recent other injury. He is thought to have some knee arthritis. He recently started physical therapy for his knee however has stopped secondary to this injury. His home medications include Microzide, was on a Prell and Prilosec. His medical history is significant for hypertension, history of prostate cancer and GERD. He has not had any significant symptoms of GERD recently. He has a medical allergy to Bactrim. His surgical history includes prostatectomy and cyst removal. He lives at home. He is retired. He does not smoke cigarettes. He denies use of alcohol or illicit drugs. He is an avid bike rider. Review of Systems: The following system(s) were reviewed and pertinent findings noted: Constitutional:No fever, no weight loss Eyes:No diplopia. No redness. CV:No chest pain. No ankle swelling Resp:No dyspnea. No wheezing GI:No abdominal pain.No abdominal distention :No dysuria Neuro:No headache. Awake alert oriented X3 Integumentary:No skin rash Heme/lymphatic:No apparent lymphadenopathy Allergic/Immunologic:No hives Psych:No unusual mood swings Physical exam: He is afebrile. His vital signs are stable. He is alert, oriented pleasant cooperative. No one accompanies him today in the office. He is in good spirits. He is using crutches appropriately. He has aknee immobilizer in place. He is in no acute distress. He has well-maintained range of motion of the hip. He has no clinical malalignment of the knee. He has tenderness over the medial and lateral aspects of the knee. He actually has just a trace amount of varus instability the knee at 30 degrees in knee flexion. This is about 10 degrees. He has no valgus instability of the knee. He has well-maintained clinical alignment to the knee. He does not demonstrate a significant knee effusion today in the office. His extensor mechanism is intact. He has active knee range of motion from 15 to 60 degrees. He has no lower extremity neurologic or vascular deficits. There is no swelling about the leg suggestive of compartment syndrome. He has well- maintained range of motion of the ankle. There is no clinical malalignment of the knee. Radiographic exam: AP and lateral radiographs of the right knee have been obtained today in the office at my request. I have personally reviewed them. There is a nondisplaced right lateral tibial plateau fracture. There is no significant depression. There is no chondral widening. The joint is well-preserved with minimal arthritic changes. Impression: Nondisplaced right lateral tibial plateau fracture. Prior to the injury he was having some antecedent issues suggestive of some mild arthritis. Plan: I do not recommend surgical management for his tibial plateau fracture. There is minimal depression. There is no significant widening of the tibial condyle. There is no valgus instability. He should maintain right lower extremity nonweightbearing. He has been instructed to work on early range of motion activities for the hip and knee. I have explained to him he has a mild increased risk of developing significant arthritis secondary to this injury however I do not believe surgical intervention will be of any long-term benefit. He does understand that natural history and healing process for thebones. I gave him a single prescription for narcotic I did advise him to rapidly wean from regular u se of narcotics. We also gave him an anti-inflammatory and he is to watch for any signs of GERD. All questions were answered to his satisfaction. We will see him back in the office in 3 to 4 weeks with AP lateral radiographs of the right knee. documented in this encounter Reason for Referral Status Reason Specialty Diagnoses / Procedures Re ferred By Contact Referred To Contact Authorized Rehabilitation Diagnoses Primary osteoarthritis of both knees Srinivas Hackett IV, MD [address] [facility] [address] [place] [address] Status Reason Specialty Diagnoses / Procedures Referred By Contact Referred To Contact Authorized Colon and Rectal Surgery Karen Peñaloza, DO [address] [place] [address] [facility] [place] [facility] [address] [facility] [address] [place] [address] Status Reason Specialty Diagnoses / Procedures Referred By Contact Referred To Contact Authorized Rehabilitation Diagnoses Closed fracture of lateral portion of right tibial plateau, with routine healing, subsequent encounter Smooth Eason MD [address] [place] [address] Specialty Diagnoses / Procedures Referred By Contac t Referred To Contact Diagnoses Acute bilateral low back pain with left-sided sciatica Mid back pain Procedures XR SPINE THORACIC 2 VIEWS Karen Edmonds, SITECORE DEVELOPER-FREIGHT CLERK [address] [facility] [address] [place] [address] Referral ID Status Reason Start Date Expiration Date V isits Requested Visits Authorized [id number] New Request 03/22/2022 04/16/2023 1 1 Specialty Diagnoses / Procedures Referred By Contac t Referred To Contact Diagnoses Prostate cancer Procedures QUESTIONNAIRE SERIES Karen Edmonds, SITECORE DEVELOPER-FREIGHT CLERK [address] [facility] [address] [place] [address] Referral ID Status Reason Start Date Expiration Date V isits Requested Visits Authorized [id number] New Request 06/22/2022 07/17/2023 1 1 Specialty Diagnoses / Procedures Referred By Contac t Referred To Contact Diagnoses Colon cancer screening Procedures DIAGNOSTIC COLONOSCOPY MS COLONOSCOPY STOMA DX INCLUDING COLLJ SPEC SPX Phil Mills, SITECORE DEVELOPER-FREIGHT CLERK [address] [place] [address] Referral ID Status Reason Start Date Expiration Date V isits Requested Visits Authorized [id number] New Request 11/10/2022 12/05/2023 1 1 Discharge Instructions * Instructions* Karely Mcdaniels MD - 03/04/2020 You should remain nonweightbearing on this leg. This means do not put any weight on it. Use your crutches. Wear knee immobilizer. Call Dr. Eason's office first thing in the morning. Take your pain medication as needed. Do not take this with any other narcotic. Please follow up with your family doctor or one of your choosing. You may find a provider through the [facility] Physician Referral Service by calling [phone]) or by visiting [email or web address] Thank you for allowing us the opportunity to provide you with Emergency Care today. Follow up as discussed during your stay with your doctor or referral. This information is included in your discharge paperwork. Appropriate followup is essential in your continued care after today's visit. If you had any diagnostic studies ( Labs or Xray's, CAT scan, Ultrasound ) have your PCP (Primary Care Physician) review them with you since there may be results that require further follow up or investigation. Return to the Emergency Department at any point with worsening condition, change in symptoms, new symptoms or concerns. The physician and staff of the Emergency Department would like to thank you for choosing our facility for your health care needs. Our goal is to provide exceptional service. You may be receiving a survey in the mail following your visit. Because your feedback is very important to us, we hope you will take the time to complete and return the survey. If for any reason, you feel that you cannot rateus VERY GOOD or 5 for the service you received today, please let us know prior to your discharge. We are here 24 hours a day, 7 days a week, and are always here for you. * Attachments The following attachments cannot be sent through Care Everywhere. * Splint or Immobilizer Use (Indonesian) * Leg: Fracture (Indonesian) documented in this encounter* Attachments The following attachments cannot be sent through Care Everywhere. * Gastritis (Indonesian) documented in this encounter Additional Source Comments (unrecognized sect ion and content) No Status Records FoundNo Status Records FoundNo Status Records FoundNo Status Records Found INFORMATION SOURCE (unrecogn ized section and content) DATE CREATED AUTHOR 11/14/2017 [facility] DATE CREATED AUTHOR AUTHOR'S ORGANIZ ATION 11/15/2020 [facility] DATE CREATED AUTHOR AUTHOR'S ORGANIZ ATION 08/18/2023 [facility] DATE CREATED AUTHOR AUTHOR'S ORGANIZ ATION 10/13/2023 [facility] Reason for Visit (unrecogniz ed section and content) Reason Comments Physical Therapy Status Reason Specialty Diagnoses / Procedures Referred By Contact Referred To Contact Authorized Physical Therapy / Rehabilitation Diagnoses Closed nondisplaced fracture of acromial end of left clavicle with routine healing, subsequent encounter Smooth Eason MD [address] [place] [id number] [facility] [address] [facility] [address] [place] [address] Reason Comments Follow-up Reason Comments Hemorrhoids Reason Comments Follow-up Reason Comments Reason Comments Dental Pain Specialty Diagnoses / Procedures Referred By Contac t Referred To Contact Diagnoses Acute bilateral low back pain with left-sided sciatica Mid back pain Procedures XR SPINE THORACIC 2 VIEWS Karen Edmonds, SITECORE DEVELOPER-FREIGHT CLERK [address] [facility] [address] [place] [address] Referral ID Status Reason Start Date Expiration Date V isits Requested Visits Authorized [id number] New Request 03/22/2022 04/16/2023 1 1 Reason Comments Follow-up Prostate Cancer Reason Comments Prostate Cancer Reason Comments Prostate Cancer Specialty Diagnoses / Procedures Referred By Contac t Referred To Contact Diagnoses Colon cancer screening Procedures DIAGNOSTIC COLONOSCOPY MS COLONOSCOPY STOMA DX INCLUDING COLLJ SPEC SPX Phil Mills, SITECORE DEVELOPER-FREIGHT CLERK [address] [place] [address] Referral ID Status Reason Start Date Expiration Date V isits Requested Visits Authorized [id number] New Request 11/10/2022 12/05/2023 1 1 Karen Peñaloza, - 05/21/2020 3:56 PM Vini Bravo RN - 05/21/2020 3:53 PM Avelina Arenas RN - 05/21/2020 3:18 PM Ruchi Wade RN - 03/04/2020 2:17 AM EDT ED Notes (unrecognized secti on and content) ED PROVIDER NOTE [facility] NAME: Shaq Last AGE: 69 y.o. : 1950 VISIT DATE: 05/21/2020 CSN: [id number] PCP: Fani Saunders CNP Chief Complaint Patient presents with Hemorrhoids 69-year-old male presents to the emergency department with concerns for hemorrhoids. He states that he had hemorrhoids intermittently over his life although typically is able to reduce them. He states that he has had a large hemorrhoid that has been unable to improve over the last 24 to 48 hours. He states that he has no bleeding now although has had bleeding in the past. He is never seen anyone for this. Tried some [id number] hydrocortisone cream with no relief. States it is itching and burning. He states that he otherwise has no other systemic signs of illness. His bowel movements have been actually pretty normal, does take a lot of fiber in his diet and has loose stools. Tried some Vaseline as well. He denies any history of any trauma to the anal rectal region. He has no blood in the stool. No history of any other particular improving or exacerbating factors other home therapies or concerns. No temporal relationship. Past Medical History: Diagnosis Date Hypertension Prostate cancer (HCC) Past Surgical History: Procedure Laterality Date CYST REMOVAL ORTHOPEDIC SURGERY 2017 collar bone repair PROSTATECTOMY 2016 History reviewed. No pertinent family history. Social History Socioeconomic History Marital status: Single Spouse name: Not on file Number of children: Not on file Years of education: Not on file Highest education level: Not on file Occupational History Not on file Social Needs Financial resource strain: Not on file Food insecurity Worry: Not on file Inability: Not on file Transportation needs Medical: Not on file Non-medical: Not on file Tobacco Use Smoking status: Never Smoker Smokeless tobacco: Never Used Substance and Sexual Activity Alcohol use: No Drug use: No Sexual activity: Not on file Lifestyle Physical activity Days per week: Not on file Minutes per session: Not on file Stress: Not on file Relationships Social connections Talks on phone: Not on file Gets together: Not on file Attends quaker service: Not on file Active member of club or organization: Not on file Attends meetings of clubs or organizations: Not on file Relationship status: Not on file Other Topics Concern Not on file Social History Narrative Not on file Previous Medications Medication Sig calcium carbonate-vitamin D2 500 mg(1,250mg) -200 unit tablet Take 1 tablet by mouth 2 (two) times a day. hydrochlorothiazide (MICROZIDE) 12.5 mg capsule Take 12.5 mg by mouth. ibuprofen (ADVIL,MOTRIN) 800 MG tablet Take 1 (one) tablet (800 mg total) by mouth every 8 (eight) hours as needed for pain . lisinopril (PRINIVIL,ZESTRIL) 10 MG tablet Take 5 mg by mouth daily. multivitamin (multivitamin) per tablet Take 1 tablet by mouth daily. omeprazole (PRILOSEC) 40 MG capsule Take 1 (one) capsule (40 mg total) by mouth daily . [DISCONTINUED] HYDROcodone-acetaminophen (NORCO) 5-325 mg per tablet Take 1 (one) tablet by mouth every 8 (eight) hours as needed for pain . (Patient not taking: Reported on 05/21/2020 .) Allergies Allergen Reactions Bactrim [Sulfamethoxazole-Trimethoprim] Anxiety Review of Systems Constitutional: Negative for activity change. HENT: Negative for drooling. Eyes: Negative for visual disturbance. Respiratory: Negative for apnea. Endocrine: Negative for cold intolerance. Genitourinary: Negative for decreased urine volume. Musculoskeletal: Negative for joint swelling. Skin: Negative for rash. Allergic/Immunologic: Negative for immunocompromised state. Psychiatric/Behavioral: Negative for agitation. All other systems reviewed and are negative. Patient Vitals for the past 24 hrs: BP Temp Temp src Pulse Resp SpO2 Height Weight 05/21/20 1518 (!) 192/99 98.4 F (36.9 C) Oral 68 16 98 % 05/21/20 1515 (!) 183/91 69 16 100 % 05/21/20 1509 5' 4 66.2 kg (146 lb) Physical Exam Constitutional: General: He is not in acute distress. Appearance: He is well-developed. He is not diaphoretic. HENT: Head: Normocephalic and atraumatic. Eyes: Conjunctiva/sclera: Conjunctivae normal. Neck: Trachea: No tracheal deviation. Pulmonary: Effort: Pulmonary effort is normal. No respiratory distress. Genitourinary: Comments: Approximately quarter sized hemorrhoid without any signs or stigmata of bleeding. No obvious thrombosis. Is quite pink. There is tenderness noted. Some brown stool in the vault. Skin: General: Skin is warm and dry. Coloration: Skin is not pale. Findings: No rash. Neurological: Mental Status: He is alert and oriented to person, place, and time. Mental status is at baseline. Psychiatric: Mood and Affect: Mood normal. Laboratory & Radiographic Imaging (if done): No results found for this visit on 05/21/20. No orders to display Procedures MDM Number of Diagnoses or Management Options Elevated blood pressure reading Hemorrhoids, unspecified hemorrhoid type Diagnosis management comments: 69-year-old male presenting to the emergency department with concerns for hemorrhoid. There is a large hemorrhoid on exam although not a whole lot of thrombosis. We did discuss the options of an incision and drainage although did discuss with him that the benefit might be low without major thrombosis. We did discuss perhaps doing some Anusol for home with some pain control and bowel regimen. Sitz bath's as well. We will refer him to colorectal as an outpatient for definitive management. Blood pressure is little elevated here although he is in discomfort. Perhaps this can be rechecked when the hemorrhoid is resolved. I see no signs of a hypertensive emergency. In the interim will be discharged home. Usual return to ED precaution stressed. . Clinical Impression: 1. Hemorrhoids, unspecified hemorrhoid type 2. Elevated blood pressure reading ED Disposition ED Disposition Condition Comment Discharge Stable Shaq Last discharged to home/self care in stable condition. Follow-up Information 1. Fani Saunders CNP. Specialty: Family Medicine [address] [place] [address] Contact information for after-discharge care Follow-up information has not been specified. New Prescriptions hydrocortisone (ANUSOL-HC) 2.5 % rectal cream Insert into the rectum 2 (two) times a day . HYDROcodone-acetaminophen (NORCO) 5-325 mg per tablet Take 1 (one) tablet by mouth every 6 (six) hours as needed for pain . senna-docusate (SENNA-S) 8.6-50 mg Take 1 (one) tablet by mouth daily . Karen Peñaloza DO 05/21/20 1559 Patient resting on cart, NAD noted. Patient made aware of D/C'd at this time and patient agreeable to D/C. Patient provided with discharge instructions and questions answered at this time. Patient arrives from triage with c/o hemorrhoid pain. Patient reports increased pain and discomfort. Patient denies bleeding. Patient rates his pain a 7/10. documented in this encounter Pt provided with knee immobilizer for RLE. Pt educated on use of crutches and demonstrated understanding. Reviewed AVS with pt, educated pt regarding medications and follow up instructions, encouraged pt to fill out follow-up survey and return upon discharge, pt verbalized understanding. This RN answered all pt questions, no further needs expressed at this time. VSS, NAD, AOx4, GCS 15. Pt to CT via ED cart. SHELIA WASHINGTON noted. PCP - Fani Saunders, FREIGHT CLERK No chief complaint on file. HPI 69-year-old male with past history of hypertension presents to the ED complaining of right lateral knee pain after he tripped and fell and struck his knee on a metal table around 4 PM this afternoon. Patient states that he was in a dark basement looking for his cat when he tripped over something and fell. He did not hit his head or lose consciousness. States the pain was very mild initially but is gotten progressively worse. Worse with repair activity or range of motion. There is rest. He initially had some relief with Tylenol. No longer finding relief. Review of systems he denies headache, lightheadedness or dizziness, neck pain, shortness of breath or chest pain no abdominal pain or back pain, nausea vomiting, pelvic pain, other joint pains, muscle aches, limitations in range of motion no numbness or tingling or rashes or lesions. Review of Systems Constitutional: No recent unexplained weight loss Skin: No rash Eyes: No scleral icterus ENMT: No voice changes Genitourinary: no obstructive symptoms Endocrine: no polyuria Neurologic: no speech difficulties Psychiatric: No Behavior Problems Hematologic/Lymphatic: No abnormal bruising Allergic/Immunologic: no urticaria Other pertinent positives and negatives in HPI Previous Records Reviewed Past Medical History Past Medical History: Diagnosis Date Hypertension Prostate cancer (HCC) Past Surgical History Past Surgical History: Procedure Laterality Date CYST REMOVAL ORTHOPEDIC SURGERY 2017 collar bone repair PROSTATECTOMY 2016 Family History No family history on file. Social History Social History Socioeconomic History Marital status: Single Spouse name: Not on file Number of children: Not on file Years of education: Not on file Highest education level: Not on file Occupational History Not on file Social Needs Financial resource strain: Not on file Food insecurity Worry: Not on file Inability: Not on file Transportation needs Medical: Not on file Non-medical: Not on file Tobacco Use Smoking status: Never Smoker Smokeless tobacco: Never Used Substance and Sexual Activity Alcohol use: No Drug use: No Sexual activity: Not on file Lifestyle Physical activity Days per week: Not on file Minutes per session: Not on file Stress: Not on file Relationships Social connections Talks on phone: Not on file Gets together: Not on file Attends quaker service: Not on file Active member of club or organization: Not on file Attends meetings of clubs or organizations: Not on file Relationship status: Not on file Other Topics Concern Not on file Social History Narrative Not on file Allergies Allergies Allergen Reactions Bactrim [Sulfamethoxazole-Trimethoprim] Anxiety Medications Shaq Last Home Medication Instructions Prior to Surgery LEVI:[id number] Printed on:03/04/2041 Medication Information Take last dose on Take the morning of surgery Comment(s) calcium carbonate-vitamin D2 500 mg(1,250mg) -200 unit tablet Take 1 tablet by mouth 2 (two) times a day. hydrochlorothiazide (MICROZIDE) 12.5 mg capsule Take 12.5 mg by mouth. HYDROcodone-acetaminophen (NORCO) 5-325 mg per tablet Take 1 (one) tablet by mouth every 8 (eight) hours as needed for pain. lisinopril (PRINIVIL,ZESTRIL) 10 MG tablet Take 5 mg by mouth daily. multivitamin (multivitamin) per tablet Take 1 tablet by mouth daily. omeprazole (PRILOSEC) 40 MG capsule Take 1 (one) capsule (40 mg total) by mouth daily . Physical Exam Initial Vital Signs BP (!) 151/89 (BP Location: Right arm, Patient Position: Sitting) Pulse 92 Temp 98.3 F (36.8 C) Resp 18 SpO2 100% Vital Signs During ED Visit (as charted by nursing) Patient Vitals for the past 24 hrs: BP Temp Pulse Resp SpO2 03/03/20 2246 (!) 151/89 98.3 F (36.8 C) 92 18 100 % Physical Exam Vitals signs and nursing note reviewed. Constitutional: General: He is not in acute distress. Appearance: Normal appearance. He is well-developed. He is not ill-appearing, toxic-appearing or diaphoretic. Comments: Patient sitting comfortably, answer all questions appropriately and in full sentences. No signs of intoxication or confusion. HENT: Head: Normocephalic. Eyes: General: No scleral icterus. Right eye: No discharge. Left eye: No discharge. Extraocular Movements: Extraocular movements intact. Conjunctiva/sclera: Conjunctivae normal. Neck: Musculoskeletal: Normal range of motion and neck supple. Vascular: No JVD. Trachea: No tracheal deviation. Cardiovascular: Rate and Rhythm: Normal rate. Pulmonary: Effort: Pulmonary effort is normal. No respiratory distress. Musculoskeletal: Normal range of motion. General: Tenderness present. No swelling. Right hip: Normal. Right knee: He exhibits swelling and bony tenderness. He exhibits normal range of motion, no effusion, no ecchymosis, no deformity, no laceration, no erythema, normal alignment, no LCL laxity and no MCL laxity. Tenderness found. Lateral joint line tenderness noted. No medial joint line tenderness noted. Right ankle: Normal. Right upper leg: Normal. Right lower leg: He exhibits no tenderness, no bony tenderness, no swelling, no deformity and no laceration. No edema. Left lower leg: No edema. Legs: Comments: No concerns for septic arthritis or compartment syndrome. Skin: General: Skin is warm and dry. Findings: No bruising, erythema, lesion or rash. Neurological: Mental Status: He is alert and oriented to person, place, and time. Psychiatric: Mood and Affect: Mood normal. Behavior: Behavior normal. Thought Content: Thought content normal. Judgment: Judgment normal. IMPRESSION/ ED COURSE 69-year-old male with past history of hypertension presents to the ED with right lateral knee pain status post mechanical fall earlier this afternoon. Pain was gradual in onset initially responsive to Tylenol. He notes some mild associated swelling to the lateral aspect of his knee. He is afebrile nontachycardic but hypertensive at 151/89. He has reproducible right knee pain along the lateral joint line. Some localized swelling as well. No joint laxity. No concern for septic arthritis or compartment syndrome. No pain above and below the affected joint. Neurovascular intact. Provided him with [place] for pain. Plain films suggest tibial plateau fracture. I consulted orthopedics who recommends CT scan. They will evaluate him after the scan is completed. They suspected that the patient would likely be able to be discharged home in a knee immobilizer with orthopedic follow-up. Please see Dr. Mcdaniels's note for additional information, test results, treatment plan and ultimate disposition. . FINAL DIAGNOSIS 1. Closed fracture of right tibial plateau, initial encounter 2. Fall, initial encounter 3. Elevated blood pressure reading 4. Acute pain of right knee Labs Reviewed - No data to display Radiographic Imaging (if any) During ED Visit XR Knee Right 2 Views (Standard) Final Result Lateral tibial plateau fracture with moderate lipohemarthrosis. Workstation ID: [id number] CT Knee Right Without Contrast (Results Pending) Medications Ordered/Given During ED Visit Medications HYDROcodone-acetaminophen (NORCO) 5-325 mg per tablet 1 tablet (1 tablet Oral Given 03/03/20 0776) Procedures Note: To expedite correspondence this note was generated by [employer] voice recognition software. All imaging has been read by a Radiologist. Parrish Marroquin PA-C 03/04/20 0042 Pt arrives via ambulance with complaints of knee pain after hitting it on table. Pt attempted Tylenol with no relief. Pt currently getting rehab on knees. Bed: 33 Expected date: Expected time: Means of arrival: Comments: Medic [address] mcdaniels documented in this encounter ED PROVIDER NOTE [facility] NAME: Shaq Last AGE: 68 y.o. : 1950 VISIT DATE: 03/03/2019 CSN: [id number] PCP: Fani Saunders CNP No chief complaint on file. Patient is a 68-year-old male who presents for evaluation of upset stomach. Patient states that 5 weeks ago he had 4 days worth of an upset stomach. He states that his epigastric area felt queasy and he did have a little bit of burning sensation as well. He states that his friend told him to go on a bland diet and he did that and had been asymptomatic up until 2 days ago. He states that he ate a grilled cheese sandwich and the symptoms came back. He describes it as a epigastric upset stomach. He states that is been rather continuous since its onset but has less than over the past 24 hours. He states that nothing makes his sensation better or worse. He does have a little bit of nausea but none now. He denies any associated fever chills vomiting or diarrhea. Patient states that he does take a fair amount of naproxen secondary to chronic back pain. Past Medical History: Diagnosis Date Hypertension Prostate cancer (HCC) Past Surgical History: Procedure Laterality Date CYST REMOVAL ORTHOPEDIC SURGERY 2017 collar bone repair PROSTATECTOMY 2016 History reviewed. No pertinent family history. Social History Socioeconomic History Marital status: Single Spouse name: Not on file Number of children: Not on file Years of education: Not on file Highest education level: Not on file Occupational History Not on file Social Needs Financial resource strain: Not on file Food insecurity: Worry: Not on file Inability: Not on file Transportation needs: Medical: Not on file Non-medical: Not on file Tobacco Use Smoking status: Never Smoker Smokeless tobacco: Never Used Substance and Sexual Activity Alcohol use: No Drug use: No Sexual activity: Not on file Lifestyle Physical activity: Days per week: Not on file Minutes per session: Not on file Stress: Not on file Relationships Social connections: Talks on phone: Not on file Gets together: Not on file Attends quaker service: Not on file Active member of club or organization: Not on file Attends meetings of clubs or organizations: Not on file Relationship status: Not on file Other Topics Concern Not on file Social History Narrative Not on file Previous Medications Medication Sig calcium carbonate-vitamin D2 500 mg(1,250mg) -200 unit tablet Take 1 tablet by mouth 2 (two) times a day. hydrochlorothiazide (MICROZIDE) 12.5 mg capsule Take 12.5 mg by mouth. HYDROcodone-acetaminophen (NORCO) 5-325 mg per tablet Take 1 (one) tablet by mouth every 8 (eight) hours as needed for pain. lisinopril (PRINIVIL,ZESTRIL) 10 MG tablet Take 5 mg by mouth daily. multivitamin (multivitamin) per tablet Take 1 tablet by mouth daily. Allergies Allergen Reactions Bactrim [Sulfamethoxazole-Trimethoprim] Anxiety Review of Systems Constitutional: Negative. HENT: Negative. Eyes: Negative. Respiratory: Negative. Cardiovascular: Negative. Gastrointestinal: Negative for abdominal pain. Genitourinary: Negative. Musculoskeletal: Negative. Neurological: Negative. Psychiatric/Behavioral: Negative. Patient Vitals for the past 24 hrs: BP Temp Temp src Pulse Resp SpO2 03/03/19 1434 133/84 97.6 F (36.4 C) Oral 64 16 100 % Physical Exam Vitals signs and nursing note reviewed. HENT: Head: Atraumatic. Comments: Unremarkable Eyes: Pupils: Pupils are equal, round, and reactive to light. Neck: Musculoskeletal: Normal range of motion. Cardiovascular: Rate and Rhythm: Normal rate and regular rhythm. Heart sounds: No murmur. Pulmonary: Effort: Pulmonary effort is normal. No respiratory distress. Breath sounds: Normal breath sounds. No wheezing or rales. Abdominal: General: Bowel sounds are normal. There is no distension. Palpations: Abdomen is soft. Tenderness: There is no tenderness. Musculoskeletal: Normal range of motion. Skin: General: Skin is warm and dry. Neurological: Mental Status: He is alert and oriented to person, place, and time. Laboratory & Radiographic Imaging (if done): Results for orders placed or performed during the hospital encounter of 03/03/19 CBC Auto Differential Result Value Ref Range WBC 4.47 (L) 4.50 - 11.00 K/mcL RBC 3.95 (L) 4.50 - 5.90 M/mcL Hemoglobin 12.8 (L) 13.5 - 17.5 g/dL Hematocrit 37.9 (L) 41.0 - 53.0 % MCV 95.9 80.0 - 100.0 fL MCH 32.4 26.0 - 34.0 pg MCHC 33.8 31.0 - 37.0 g/dL Platelets 249 150 - 400 K/mcL RDW - CV 11.7 11.6 - 14.8 % MPV 9.8 9.0 - 15.5 fL Neutrophils 49.6 % Lymphocytes 33.6 % Monocytes 12.8 % Eosinophils 3.6 % Basophils 0.4 % IG Percent 0.00 % Neutrophils Abs 2.22 1.70 - 7.00 K/mcL Lymphocytes Abs 1.50 0.90 - 4.00 K/mcL Monocytes Abs 0.57 0.30 - 0.90 K/mcL Eosinophils Abs 0.16 0.00 - 0.50 K/mcL Basophils Abs 0.02 0.00 - 0.30 K/mcL IG Absolute 0.00 0.00 - 0.30 K/mcL Nucleated RBC 0.0 % Nucleated RBC Abs 0.00 0.00 - 0.00 K/mcL No orders to display Procedures MDM Number of Diagnoses or Management Options Gastritis without bleeding, unspecified chronicity, unspecified gastritis type: Diagnosis management comments: Patient symptoms are consistent with gastritis. He is afebrile with a soft and nontender abdomen. I do not believe the patient's symptoms are secondary to any type of small bowel obstruction or perforated viscus or acute cholecystitis or acute appendicitis or mesenteric ischemia or ischemic colitis. I started the patient go back on a bland diet. I will prescribe the patient Prilosec. I did instruct him to follow-up with his family doctor this week for gastroenterology referral for endoscopy. I also instruct the patient to not use anti-inflammatory medications and just use Tylenol for pain. Patient was agreeable with this plan. Immediate return cautions of: Abdominal pain, vomiting, fevers were given patient. IMPRESSION: 1. Acute gastritis . Clinical Impression: 1. Gastritis without bleeding, unspecified chronicity, unspecified gastritis type ED Disposition ED Disposition Condition Comment Discharge Stable Shaq Mari Carolee discharged to home/self care in stable condition. Follow-up Information Follow-up information has not been specified. Contact information for after-discharge care Follow-up information has not been specified. New Prescriptions omeprazole (PRILOSEC) 40 MG capsule Take 1 (one) capsule (40 mg total) by mouth daily . Shaq Murcia MD 03/03/19 1510 Bed: 36 Expected date: Expected time: Means of arrival: Comments: triage Presents with complaints of nausea for the last 5wks intermittently. Pt states it comes in waves of about 3-4 days at a time. Pt took OTC meds and attempted to try a bland diet to help with symptoms. Pt states symptoms got better, but 2-3days ago he had a grilled cheese diet and the nausea started again. Patient sts intermittent nausea for several weeks without relief. Sts called pcp and was told to come to the ED documented in this encounter ED Attestation Note - aKrely Mcdaniels MD - 03/04/2020 1:33 AM EDT Miscellaneous Notes (unrecog nized section and content) I personally interviewed the patient. I personally examined the patient. I discussed the patient with GLASS BEAD MAKER/PA. I agree with the GLASS BEAD MAKER/PA treatment plan. I agree with the [employer]PA plan of care. I agree with the [employer] dispo as documented. . 69-year-old gentleman who comes to the ED after having a fall just prior to arrival. Has right knee pain. Did not hit his head. No neck pain or headache. No chest pain or shortness of breath. No back pain. No other complaints or concerns. Did not have LOC. No anticoagulation. On exam he has tenderness about his knee. He has good distal pulses normal sensation. Good capillary refill. He was reminded to be n.p.o. by myself. C, T, L-spine nontender. Heart rate and rhythm regular lungs clear to auscultation abdomen is soft and nontender. Disposition pending Orth O's recommendations. 01:48 talked to the orthopedic resident who recommends discharge home with knee immobilizer, crutches and nonweightbearing. Follow-up with Dr. theodore . After further chart search it appears that the patient has been following with Dr. Eason. I will have the patient follow-up with Dr. Eason because of this. The patient denies being on any narcotics currently. He has no narcotics at home. Narcotic precautions discussed. Patient is happy with the plan. Laboratory Results Labs Reviewed - No data to display Imaging Results XR Knee Right 2 Views (Standard) Final Result Lateral tibial plateau fracture with moderate lipohemarthrosis. Workstation ID: [id number] CT Knee Right Without Contrast (Results Pending) documented in this encounter Care Teams (unrecognized sec tion and content) Mat Repairer Relationship Specialty Start Date End Date Julio Cesar Ospina MD PCP - General Family Medicine 01/02/14 Mat Repairer Relationship Specialty Start Date End Date Julio Cesar Ospina MD PCP - General Family Medicine 01/02/14 Mat Repairer Relationship Specialty Start Date End Date Julio Cesar Ospina MD PCP - General Family Medicine 01/02/14 Mat Repairer Relationship Specialty Start Date End Date Julio Cesar Ospina MD PCP - General Family Medicine 01/02/14 Mat Repairer Relationship Specialty Start Date End Date Julio Cesar Ospina MD PCP - General Family Medicine 01/02/14 Mat Repairer Relationship Specialty Start Date End Date Julio Cesar Ospina MD PCP - General Family Medicine 01/02/14 Mat Repairer Relationship Specialty Start Date End Date Julio Cesar Ospina MD PCP - General Family Medicine 01/02/14 Mat Repairer Relationship Specialty Start Date End Date Julio Cesar Ospina MD PCP - General Family Medicine 01/02/14 Mat Repairer Relationship Specialty Start Date End Date Julio Cesar Ospina MD PCP - General Family Medicine 01/02/14 Mat Repairer Relationship Specialty Start Date End Date Julio Cesar Ospina MD PCP - General Family Medicine 01/02/14 FOR RECORDS PERTAINING TO PATIENTS WHO ARE OR HAVE BEEN ENROLLED IN A CHEMICAL DEPENDENCY/SUBSTANCEABUSE PROGRAM, SOME INFORMATION MAY BE OMITTED. This clinical summary was aggregated from multiple sources. Caution should be exercised in using it in the provision of clinical care. This summary normalizes information from multiple sources, and as a consequence, information in this document may materially change the coding, format and clinical context of patient data. In addition, data may be omitted in some cases. CLINICAL DECISIONS SHOULD BE BASED ON THE PRIMARY CLINICAL RECORDS. [employer] [facility]. provides no warranty or guarantee of the accuracy or completeness of information in this document.
[2024-03-14 04:23] VITALS: BP 139/69; PULSE 101; RESP 17; TEMP 39.4; O2SAT 98
[2024-03-14] MEDS: Acetaminophen 500 MG Tablet 1000 MG PO (04:27)
[2024-03-14] MEDS: oxyCODONE 5 MG Tablet PO (04:27)
[2024-03-14 04:32] LABS: Bacteria 0 SEEN /hpf (None Seen); Mucous, Urine 0 SEEN /hpf (<or=2+); Squamous Epithelial Cells - UA 0 SEEN /hpf (0-5); White Blood Cells 0 SEEN /hpf (0-5)
[2024-03-14 04:33] LABS: Color, Urine Yellow (Yellow); Glucose, Dipstick Normal (Normal); Ketone-Dipstick Negative (Negative); Leukocyte Esterase-Dipstick Negative /ul (Negative); Nitrite-Dipstick Negative (Negative); Occult Blood-Urine 25 /ul (Negative); Protein-Dipstick 15 mg/dl (Negative); Urine Bilirubin Dipstick Negative (Negative); Urine Clarity Clear (Clear); Urine Urobilinogen Normal (Normal)
[2024-03-14 05:00] VITALS: BP 139/69; PULSE 101; RESP 16; TEMP 38.8; O2SAT 97
[2024-03-14 05:01] LABS: Red Blood Cells-Urine 0-5 SEEN /hpf (0-5)
--- NOTE | 2024-03-14 05:54 | EDS_ITS ---
HPI History of Present Illness Chief Complaint: General Illness Informant: patient and EMS Narrative Narrative: Patient is a 73-year-old male with past medical history of hypertension as well as remote history of prostate cancer. He states that he likes to ride his bike frequently and that on Tuesday since it was a nice day road longer than he normally does. He states he did not think much of this but after that ride noticed he had pain in his back. He states he treated as he normally does with a TENS unit and heating pad. He reports that he did this for the last few days and he thought he was improving but this evening awoke with chills and reports that now his whole body hurts . He states there is no really associated nausea vomiting diarrhea or dysuria. He denies any cough or congestion. He states he has not noticed any hematuria and he denies loss of bowel or bladder control or IV drug use. He does state that a few years ago he had influenza and states he believes he is developing that once again based on his symptoms [facility] Medical History (Updated 03/14/24 @ 06:[address] Robbie Gonzales, DO) Lesion of soft tissue Hypertension BPH (benign prostatic hyperplasia) Collar bone fracture Bladder neck contracture Radiation cystitis Lower leg fracture Prostate cancer Home Medications ?Medication ?Instructions ?Recorded ?Last Taken ?Type hydrochlorothiazide 12.5 mg capsule 12.5 mg PO DAILY 01/12/24 Unknown History multivitamin (Multiple Vitamins 1 tab PO DAILY 01/12/24 Unknown History tablet) lisinopril 20 mg tablet 60 mg PO DAILY 02/07/24 Unknown History acetaminophen 500 mg tablet 500 mg PO Q6H PRN fever or pain 03/14/24 Unknown Rx (Tylenol Extra Strength) #60 tabs ibuprofen 600 mg tablet 600 mg PO Q6H PRN fever or pain 03/14/24 Unknown Rx #60 TABLETS methocarbamol 500 mg tablet 500 mg PO 4X/DAY PRN Muscle 03/14/24 Unknown Rx pain/spasm #40 tabs oxycodone 5 mg tablet 5 mg PO Q6H PRN pain 3 days #12 03/14/24 Unknown Rx tabs Allergy/AdvReac Type Severity Reaction Status Date / Time sulfamethoxazole (From AdvReac myalgia, Verified 03/14/24 03:19 Bactrim) anxiety trimethoprim (From Bactrim) AdvReac myalgia, Verified 03/14/24 03:19 anxiety Family History Mother Emphysema/COPD Surgical History H/O excision of ganglion cyst H/O prostatectomy H/O esophagogastroduodenoscopy H/O colonoscopy History of prostate biopsy Social History household members: spouse Smoking Status: Never smoker alcohol intake: never substance use type: does not use ROS ROS ED Constitutional Constitutional ED: Reports chills, fever(s) and subjective Eyes Eyes: Denies blurry vision or change in vision ENT ENT ED: Denies rhinorrhea or sore throat Cardiovascular Cardiovascular: Denies chest pain Respiratory/Chest Respiratory/Chest: Denies cough or dyspnea Gastrointestinal Gastrointestinal: Denies abdominal pain, diarrhea, nausea or vomiting Genitourinary Genitourinary ED: Denies dysuria, hematuria or urinary frequency Musculoskeletal Musculoskeletal: Reports back pain and myalgias Integumentary Denies rash Neurologic Neurologic: Denies headache(s) Hematologic/Lymphatic Hematologic/Lymphatic: Denies easy bleeding or easy bruising EXAM Physical Exam Const Vital Signs: 03/14/24 03:20 03/14/24 03:22 03/14/24 03:23 Temperature 99.1 F 99.1 F Temperature Source Oral Oral Pulse Rate 122 H 122 H Respiratory Rate 17 17 Respiratory Effort Normal Non-Labored Respiratory Pattern Normal Blood Pressure 164/101 H 164/101 H Blood Pressure Mean 122 122 Pulse Ox 98 98 Oxygen Delivery Method Room Air Room Air 03/14/24 04:23 03/14/24 05:00 03/14/24 06:00 Temperature 102.9 F H 102 F H 99.5 F H Temperature Source Oral Oral Oral Pulse Rate 101 H 101 H 97 Respiratory Rate 17 16 18 Respiratory Effort Respiratory Pattern Blood Pressure 139/69 H 139/69 H 115/62 Blood Pressure Mean 92 92 79 Pulse Ox 98 97 95 Oxygen Delivery Method Room Air Room Air Room Air 03/14/24 06:15 Temperature 99.5 F H Temperature Source Pulse Rate 97 Respiratory Rate 18 Respiratory Effort Respiratory Pattern Blood Pressure 115/62 Blood Pressure Mean 79 Pulse Ox 95 Oxygen Delivery Method Positive well nourished and well developed General Appearance ED: well developed; Negative for pallor HEENT Reports moist mucous membranes HEENT Narrative: No tongue or lip swelling no oral lesions no airway edema or compromise No findings of infection in the posterior pharynx Eyes PERRL and EOMs intact bilaterally General Eye ED: Negative for scleral icterus Neck supple Neck Narrative: No nuchal rigidity or meningeal signs Chest Wall palpation of chest normal Resp normal respiratory effort and clear to auscultation bilaterally Resp Narrative: No nasal flaring retractions tachypnea or accessory muscle use Cardio regular rhythm Rate: tachycardic GI normal to inspection, nondistended, normoactive bowel sounds, non-tender, non- distended and no masses GI Narrative: No voluntary guarding or rigidity or pulsatile mass Auscultation: normoactive bowel sounds Palpation: soft Back/Spine no CVA tenderness Back/Spine Narrative: No bony deformity or step-off of the thoracic or lumbar spine no midline tenderness to palpation. Patient does have bilateral paralumbar tenderness and spasm noted that does worsen with motion. The pain is slightly greater on the left. However no saddle anesthesia. Negative straight leg raise. No clonus or Babinski. Patellar reflexes are plus 1 out of 4 bilaterally. No overlying soft tissue changes to suggest trauma or infection No true CVA pain noted Extremity normal to inspection Extremity Narrative: No asymmetric edema no pitting edema negative Homans' sign bilaterally Neuro oriented x3, CN's II-XII intact bilaterally and no sensory deficits noted Sensorium / Orientation: alert Motor Exam: strength 5/5 throughout Psych mental status grossly normal Skin no rashes or lesions noted and no wounds General Skin Exam: Negative for jaundice or pallor MDM MDM MDM Narrative Medical decision making narrative: Patient arrived to the ER hypertensive and tachycardic but otherwise afebrile. He reported diffuse back pain after a prolonged bike ride indicating this is most likely musculoskeletal in nature such as lumbosacral strain. He denied any recent procedures that could indicate concern for discitis or osteomyelitis. He also denied any loss of bowel or bladder control or IV drug use going against cauda equina or epidural abscess. Based on his myalgias and subjective fever/chills there is concern for viral syndrome such as COVID versus influenza versus RSV. There is also concern that the low back pain could be atypical pneumonia or potential UTI/pyelonephritis. Therefore chest x-ray was obtained as well as lumbar spine x-ray and viral swab with urine sample. Urine sample showed no sign of infection going against UTI/pyelonephritis and no blood to go against kidney stone. Viral swab was negative for COVID flu versus RSV. His abdomen is soft and nonsurgical and therefore do not feel there is need for a CT scan and he does not report any type of vomiting or diarrhea. As the patient is only had symptoms for approximately 12 to 24 hours of the subjective fevers and chills he very well could have a viral syndrome that is just too early to test for. But at this time with administration of medication he reports feeling much better and his vitals have stabilized and therefore he can be discharged home and follow-up on an outpatient basis or return if symptoms worsen History & Record Review Discussion w/independent historian: Patient Lab Data Attestation: I reviewed the patient's lab results. Labs: Laboratory Results - last 24 hr 03/14/24 04:23 Urine Color Yellow Urine Clarity Clear Urine pH 7.0 Ur Specific Adrian 1.010 Urine Protein 15 H Urine Glucose (UA) Normal Urine Ketones Negative Urine Occult Blood 25 H Urine Nitrite Negative Urine Bilirubin Negative Urine Urobilinogen Normal Ur Leukocyte Esterase Negative Urine RBC 0-5 SEEN Urine WBC 0 SEEN Ur Squamous Epith Cells 0 SEEN Urine Bacteria 0 SEEN Urine Mucus 0 SEEN Radiography Diagnostic Testing: Clinical Impression(s) from Imaging Studies Chest X-Ray 03/14/24 03:37 IMPRESSION: No evidence of active intrathoracic disease. Electronically Signed: Leatha Aguero MD at 5:22 EDT Reading Location ID and State: [facility] / [place] Tel , Service support , Lumbar Spine X-Ray 03/14/24 03:37 IMPRESSION: No evidence of fracture or subluxation. Mild degenerative changes. If there is concern for inflammatory process, MRI may be helpful to evaluate for discitis osteomyelitis. Electronically Signed: Leatha Aguero MD at 5:25 EDT , Chest x-ray as interpreted by the emergency medicine physician reveals no acute infiltrate pneumothorax or pleural effusion Lumbar spine x-ray as interpreted by the emergency medicine physician reveals no acute compression fracture or spondylolisthesis Discharge Plan Triage Chief Complaint: General Illness ED Provider: Robbie Gonzales Dx/Rx/DC Orders Clinical Impression: Pyrexia, Viral syndrome, Myalgia, Hypertension Instructions: ED Fever Control (Adult), ED Myalgias, ED Viral Syndrome (Adult) Prescriptions: New acetaminophen [Tylenol Extra Strength] 500 mg tablet 500 mg PO Q6H PRN (Reason: fever or pain) Qty: 60 0RF ibuprofen 600 mg tablet 600 mg PO Q6H PRN (Reason: fever or pain) Qty: 60 0RF methocarbamol 500 mg tablet 500 mg PO 4X/DAY PRN (Reason: Muscle pain/spasm) Qty: 40 0RF oxycodone 5 mg tablet 5 mg PO Q6H PRN (Reason: pain) 3 Days Qty: 12 0RF No Action hydrochlorothiazide 12.5 mg capsule 12.5 mg PO DAILY multivitamin [Multiple Vitamins] Tablet 1 tab PO DAILY lisinopril 20 mg tablet 60 mg PO DAILY Primary Care Provider: Care Physician,No Primary Referrals: Kyle Rock MD [Med Staff - Active Staff] - Care Physician,No Primary [Primary Care Provider] - Activity Restrictions/Additional Instructions: Your history and exam is most consistent with a viral syndrome. Your chest x- ray did not show pneumonia your urine shows no sign of infection. Continue with Tylenol and/or ibuprofen roughly every 6 hours for fever control use the prescribed oxycodone as directed for the muscle aches associated with this and the Robaxin for muscle spasm. If you feel like your symptoms are worsening or you have any further concerns please return for repeat evaluation Print Language: Luxembourgish Disposition Disposition: Home, Self Care
[2024-03-14 06:00] VITALS: BP 115/62; PULSE 97; RESP 18; TEMP 37.5; O2SAT 95
[2024-03-14] MEDS: Ondansetron ODT 4 MG Tablet PO (06:13)
[2024-03-14 06:15] VITALS: BP 115/62; PULSE 97; RESP 18; TEMP 37.5; O2SAT 95
== END 2024-03-14 06:59 | disposition home or self-care (01) ==
PROVIDERS: Emergency Provider Emergency Medicine; Visit Provider Emergency Medicine
DX: B34.9 Viral infection, unspecified (principal); R50.9 Fever, unspecified; M54.50 Low back pain, unspecified; M62.838 Other muscle spasm; I10 Essential (primary) hypertension; Z88.2 Allergy status to sulfonamides; Z88.1 Allergy status to other antibiotic agents; Z85.46 Personal history of malignant neoplasm of prostate; Z90.79 Acquired absence of other genital organ(s); Z79.899 Other long term (current) drug therapy
CPT/HCPCS: 71046; 72100; 81001; 87631; 99285

== ENCOUNTER 2024-09-06 20:53 | Emergency (ER) | payer MEDICARE, MEDICAID, SELFPAY ==
[2024-09-06 20:53] VITALS: BP 189/88; PULSE 76; RESP 15; TEMP 36.6; O2SAT 100; BMI 24.7
--- NOTE | 2024-09-06 22:16 | EX.ED.VIS.EY ---
HPI History of Present Illness Chief Complaint: Eye Problem Informant: patient Narrative Narrative: Patient is 73-year-old male presenting with sudden onset of left thigh pain. Patient states he started having eye redness and discharge 5 days ago. He went to his doctor on Tuesday was diagnosed with pinkeye and started on ofloxacin 0.3% drops. He has been using them regularly with his last dose at 6 PM. He notes that he did actually apply 2 drops instead of 1 drop. At 7:15 PM he suddenly had pain in his left eye. He states it feels like an eyelash in his eye but 10 times worse. He denies any acute vision changes. Denies any fevers, nausea, vomiting, photophobia or headache. His friend looked under his eyelid and thought she saw blisters and he came in for further evaluation. He notes he has been having discharge and crusting of his eye. He had not really been having any significant improvement or worsening of his symptoms over the past few days. Patient does not have an eye doctor. He does wear corrective lenses. No other complaints or concerns reported at this time. [facility] Medical History Lesion of soft tissue Hypertension BPH (benign prostatic hyperplasia) Collar bone fracture Bladder neck contracture Radiation cystitis Lower leg fracture Prostate cancer Home Medications ?Medication ?Instructions ?Recorded ?Last Taken ?Type hydrochlorothiazide 12.5 mg capsule 12.5 mg PO DAILY 01/12/24 Unknown History multivitamin (Multiple Vitamins 1 tab PO DAILY 01/12/24 Unknown History tablet) lisinopril 20 mg tablet 60 mg PO DAILY 02/07/24 Unknown History acetaminophen 500 mg tablet 500 mg PO Q6H PRN fever or pain 03/14/24 Unknown Rx (Tylenol Extra Strength) #60 tabs ibuprofen 600 mg tablet 600 mg PO Q6H PRN fever or pain 03/14/24 Unknown Rx #60 TABLETS methocarbamol 500 mg tablet 500 mg PO 4X/DAY PRN Muscle 03/14/24 Unknown Rx pain/spasm #40 tabs oxycodone 5 mg tablet 5 mg PO Q6H PRN pain 3 days #12 03/14/24 Unknown Rx tabs erythromycin 5 mg/gram (0.5 %) eye 1 applic LEFT EYE Q6H 3 days #3.5 09/06/24 Unknown Rx ointment grams Allergy/AdvReac Type Severity Reaction Status Date / Time sulfamethoxazole (From AdvReac myalgia, Verified 09/06/24 20:56 Bactrim) anxiety trimethoprim (From Bactrim) AdvReac myalgia, Verified 09/06/24 20:56 anxiety Family History Mother Emphysema/COPD Surgical History H/O excision of ganglion cyst H/O prostatectomy H/O esophagogastroduodenoscopy H/O colonoscopy History of prostate biopsy Social History household members: spouse Smoking Status: Never smoker alcohol intake: never substance use type: does not use ROS ROS ED Constitutional Constitutional ED: Denies chills or fever(s) Eyes Eyes: Reports other Details: Left eye pain, recent pinkeye diagnosis of the left eye. Associated discharge ; Denies blurry vision or change in vision ENT ENT ED: Denies rhinorrhea Gastrointestinal Gastrointestinal: Denies nausea or vomiting Integumentary Denies rash Neurologic Neurologic: Denies headache(s) Hematologic/Lymphatic Hematologic/Lymphatic: Denies easy bleeding or easy bruising EXAM Physical Exam Const Vital Signs: 09/06/24 20:53 Temperature 97.9 F Temperature Source Temporal Pulse Rate 76 Respiratory Rate 15 Blood Pressure 189/88 H Blood Pressure Mean 121 Pulse Ox 100 Oxygen Delivery Method Room Air Positive well nourished and well developed General Appearance ED: well developed and NAD HEENT atraumatic Nose: external nose normal Eyes Eyes Narrative: PERRL, EOMI. Injection of the bilateral eyes more pronounced on the left. No significant drainage appreciated. On for exam and exam patient does not have any obvious corneal abrasion. There is uptake from mucus on the eye but it clears with blinking. Negative Robert sign. Onset lamp exam anterior chamber deep and quiet. Eyelid is flipped and I do not appreciate any foreign body or blisters. Ed-Pen?left eye pressure 8 mmHg Neck supple Neck Narrative: Normal range of motion Resp normal respiratory effort Neuro oriented x3 Sensorium / Orientation: alert Motor Exam: Negative for general weakness Skin no wounds Rashes: no rashes MDM MDM MDM Narrative Medical decision making narrative: Patient valuated for sudden onset of left eye pain. He describes more of a foreign body sensation. He has had recent pinkeye and has been using ofloxacin drops for it. The pain did not directly correlate with starting the drops or recent application and I do not think the drops are related to his pain. He still has findings consistent with conjunctivitis (given that has been partially treated bacterial versus viral versus allergy). Slit-lamp exam does not show any uptake. Patient does have immediate relief of his symptoms with tetracaine. Visual acuity 20/50 bilaterally. Patient be switched erythromycin ointment, given ophthalmology follow-up and given tetracaine use for no more than 24 hours for severe eye pain. Counseled if the discomfort is mild he can take NSAIDs or use lubricating eyedrops. Counseled extensively on the risk of using tetracaine for more than 24 hours including corneal ulceration and possible blindness. Patient verbalized agreement understands plan. Discharged home in stable and improved condition. Differential diagnosis includes is not limited to corneal abrasion, traumatic iritis, conjunctivitis, acute closed angle glaucoma, zoster Discharge Plan Triage Chief Complaint: Eye Problem ED Provider: Ava Gonzalez Dx/Rx/DC Orders Clinical Impression: Acute left eye pain, Acute conjunctivitis, left eye Instructions: ED Conjunctivitis, Nonspecific, ED Corneal Abrasion Prescriptions: New erythromycin 5 mg/gram (0.5 %) ointment 1 applic LEFT EYE Q6H 3 Days Qty: 3.5 0RF No Action hydrochlorothiazide 12.5 mg capsule 12.5 mg PO DAILY multivitamin [Multiple Vitamins] Tablet 1 tab PO DAILY lisinopril 20 mg tablet 60 mg PO DAILY acetaminophen [Tylenol Extra Strength] 500 mg tablet 500 mg PO Q6H PRN (Reason: fever or pain) Qty: 60 0RF ibuprofen 600 mg tablet 600 mg PO Q6H PRN (Reason: fever or pain) Qty: 60 0RF methocarbamol 500 mg tablet 500 mg PO 4X/DAY PRN (Reason: Muscle pain/spasm) Qty: 40 0RF oxycodone 5 mg tablet 5 mg PO Q6H PRN (Reason: pain) 3 Days Qty: 12 0RF Primary Care Provider: Care Physician,No Primary Referrals: Jairo Hernandez MD [Med Staff - Active Staff] - Care Physician,No Primary [Primary Care Provider] - Activity Restrictions/Additional Instructions: Under exam there is no obvious scratch that I was able to see or foreign body underneath your eyelid. There is no blistering on your eyelid and the underneath of your eyelid appeared normal. Please stop taking the ofloxacin drops and we will switch you to erythromycin ointment. Use the ointment every 6 hours for 3 days. You been given the remainder of the tetracaine (numbing drops). Please use this sparingly and only for 24 hours. Do not use it for more than 24 hours because of the significant risk of developing corneal ulceration and possible blindness. If you are still having severe pain please follow-up with ophthalmology tomorrow otherwise follow-up next week for reevaluation. You may also take ibuprofen as needed for discomfort and use [id number] lubricating eyedrops (I recommend [employer]ane brand) Print Language: German Disposition Disposition: Home, Self Care
[2024-09-06] MEDS: Fluorescein 1 MG STRIP 1 STRIP OPHTHALMIC (22:26)
[2024-09-06] MEDS: Tetracaine 0.5% Ophthalmic Bottle 1 DRP OPHTHALMIC (22:26)
[2024-09-06] MEDS: Erythromycin Base 1 OPTH.TUBE 1 APPLIC LEFT EYE (23:24)
== END 2024-09-06 23:28 | disposition home or self-care (01) ==
PROVIDERS: Emergency Provider Emergency Medicine; Visit Provider Emergency Medicine
DX: H10.32 Unspecified acute conjunctivitis, left eye (principal); H57.12 Ocular pain, left eye; I10 Essential (primary) hypertension; Z85.46 Personal history of malignant neoplasm of prostate; Z79.899 Other long term (current) drug therapy
CPT/HCPCS: 99282

== ENCOUNTER → 2025-02-15 | Outpatient (CLI) | payer MEDICARE, MEDICAID, SELFPAY ==
--- NOTE | 2025-02-15 10:33 | US_ITS ---
PROCEDURE: TESTICULAR WITH ARTERIAL FLOW 02/15/2025 REASON FOR EXAM: SWELLING TECHNIQUE: Procedure Code: USTES Modality: US Procedure: TESTICULAR WITH ARTERIAL FLOW COMPARISON: None FINDINGS: RIGHT testicle: 3.7 x 3.0 x 2.7 cm. Heterogeneous echotexture is noted throughout the right testicle. There is a benign-appearing cystic mass seen measuring 4 x 3 x 2 mm. No suspicious solid masses are seen. There is arterial and venous flow within the testicle. Right epididymis: 1.3 x 1.0 x 0.8 cm. Flow is seen within the epididymis. There is a large right hydrocele. There are no varicoceles. LEFT testicle: 5.9 x 3.0 x 2.7 cm. Homogeneous echotexture. No intratesticular mass. There is arterial and venous flow within the testicle. Left epididymis: Not visualized There is a large left hydrocele. There are no varicoceles. US/Testicular with Arterial Flow IMPRESSION: There is a benign-appearing cystic mass within the right testicle. Large bilateral hydroceles. Reading Location: [id number]
== END | disposition home or self-care (01) ==
PROVIDERS: Referring Provider Internal Medicine Hematology & Oncology; Visit Provider Internal Medicine Hematology & Oncology
DX: N50.89 Other specified disorders of the male genital organs (principal)
CPT/HCPCS: 76870; 93976

== ENCOUNTER → 2025-04-11 | Outpatient (CLI) | payer MEDICARE, MEDICAID, SELFPAY ==
--- NOTE | 2025-04-11 10:15 | US_ITS ---
PROCEDURE: TESTICULAR WITH ARTERIAL FLOW 04/11/2025 REASON FOR EXAM: ABNORMAL PET UPTAKE LEFT TESTICLE TECHNIQUE: Procedure Code: USTES Modality: US Procedure: TESTICULAR WITH ARTERIAL FLOW COMPARISON: February 17, 2025. FINDINGS: RIGHT testicle: 3.9 cm x 3 cm x 3 cm Stable 4 mm x 3 mm x 2 mm cyst in the right testicle. The testicle is of homogeneous echotexture. Right epididymis: 0.8 cm x 0.9 cm 1.3 cm. LEFT testicle: 4.1 cm x 2.4 cm x 2.9 cm Homogeneous echotexture. Left epididymis: Not visualized. Other findings: Large right hydrocele. Large left hydrocele. Normal arterial and venous flow on Doppler examination. US/Testicular with Arterial Flow IMPRESSION: Stable subcentimeter cyst in the right testicle. Large bilateral hydroceles. Reading Location: [id number]
== END | disposition home or self-care (01) ==
LOC: US 10:10
PROVIDERS: Referring Provider Internal Medicine Hematology & Oncology; Visit Provider Internal Medicine Hematology & Oncology
DX: C61 Malignant neoplasm of prostate (principal); N43.3 Hydrocele, unspecified; R93.89 Abnormal findings on diagnostic imaging of other specified body structures; N44.2 Benign cyst of testis; I10 Essential (primary) hypertension
CPT/HCPCS: 76870; 93976

== ENCOUNTER 2025-04-24 08:47 | Outpatient (CLI) | payer MEDICARE, MEDICAID, SELFPAY ==
[2025-04-24 09:25] LABS: Hematocrit 39.8 % (40-54); Hemoglobin 13.2 g/dL (13.0-16.5); Mean Corp Hgb Conc 33.2 g/dL (32-36); Mean Corpuscular Volume 95.2 fL (80-94); Mean Platelet Vol. 9.6 fl (6.2-12.0); Platelet Count 261 K/mm3 (150-450); RBC Distribution Width CV 11.4 % (11.6-14.6); RBC Distribution Width SD 39.6 fl (35.1-43.9); Red Blood Count 4.18 M/mm3 (4.6-6.2); White Blood Count 5.2 K/mm3 (4.4-11.0)
[2025-04-24 10:37] LABS: Anion Gap 9 (5-15); BUN 27 mg/dL (4-19); BUN/Creat Ratio 44.6 RATIO (10-20); Calcium,Total 9.3 mg/dL (7.6-11.0); Carbon Dioxide 28.4 mmol/L (21.0-32.0); Chloride 102 mmol/L (98-108); Glucose 72 mg/dL (70-99); Potassium 4.1 mmol/L (3.3-5.1)
== END 2025-04-24 23:59 | disposition home or self-care (01) ==
LOC: LAB 08:47
PROVIDERS: Referring Provider Urology; Visit Provider Urology
DX: Z01.812 Encounter for preprocedural laboratory examination (principal); Z01.818 Encounter for other preprocedural examination
CPT/HCPCS: 36415; 80048; 85027

== ENCOUNTER → 2025-04-24 | Outpatient (CLI) | payer MEDICARE, MEDICAID, SELFPAY ==
--- NOTE | 2025-04-24 08:16 | EKG12_ITS ---
Test Reason : PREOP Blood Pressure : */* mmHG Vent. Rate : 63 BPM Atrial Rate : 63 BPM P-R Int : 168 ms QRS Dur : 122 ms QT Int : 426 ms P-R-T Axes : 49 -47 47 degrees QTcB Int : 435 ms Normal sinus rhythm Possible Left atrial enlargement Left anterior fascicular block Abnormal ECG Reconfirmed by Chidi Cannon ([id number]), restaurant expeditor KRYSTLE MAYA ([id number]) on 05/01/2025 9:51:31 AM Referred By: Wilmer Washington Confirmed By: Chidi Cannon
== END | disposition home or self-care (01) ==
LOC: PSN 08:01
PROVIDERS: Referring Provider Urology; Visit Provider Urology
DX: Z01.810 Encounter for preprocedural cardiovascular examination (principal)
CPT/HCPCS: 93005